=== PATIENT | male | born 1955 | race African-American/Black ===

== ENCOUNTER 2016-05-25 11:59 | Emergency (ER) | payer MEDICARE, MEDICAID ==
[~2016-05-25] VITALS: Ht 172.7 cm; Wt 88.0 kg
[~2016-05-25 11:59] MED LIST: APIX5TAB PO; ATOR10TA69 PO; Aspirin PO; BRIM5DRO BOTHEYE; DORZ10DR12 BOTHEYE; METF-240 PO; TRAV2.5D BOTHEYE
[2016-05-25] MEDS ORDERED: MORPHINE SULFATE 4 MG/ML CPJ (NOT FOR IM USE) IV ONE (12:30)
[2016-05-25 13:03] LABS: BASOPHILS % 0.7 % (0.0-2.0); EOSINOPHILS % 3.7 % (0.0-5.0); HEMOGLOBIN. 12.1 g/dL (14.0-18.0); LYMPHOCYTES % 23.3 % (20.0-50.0); MEAN CORPUSCULAR HEMOGLOBIN 25.9 pg (28.0-32.0); MEAN CORPUSCULAR HGB CONC 31.9 g/dL (31.0-37.0); MEAN CORPUSCULAR VOLUME 81.3 fL (80.0-94.0); MEAN PLATELET VOLUME 9.7 fl (7.4-10.4); MONOCYTES % 8.7 % (2.0-8.0); NEUTROPHILS % 63.6 % (40.0-76.0); PLATELET 185 x1000/uL (130-400); RED BLOOD CELL COUNT 4.68 mill/uL (4.7-6.1); RED CELL DISTRIBUTION WIDTH 18.4 % (11.6-14.6); WHITE BLOOD COUNT 6.5 x1000/uL (4.5-11.0)
[2016-05-25 13:10] LABS: ALBUMIN 3.5 g/dL (3.4-5.0); ANION GAP 13; CARBON DIOXIDE 24 mEq/L (21-32); CHLORIDE 108 mEq/L (98-107); INDEX HEMOLYSI 1 (1-3); INDEX ICTERIC 1 (1-4); INDEX LIPEMIC 1 (1-3); INR 1.1; PARTIAL THROMBOPLASTIN TIME 26.8 sec (24.0-34.0); PROTHROMBIN TIME 11.7 sec; UREA NITROGEN BLOOD 15 mg/dL (7-21)
[2016-05-25 13:16] LABS: ALANINE AMINOTRANSFERASE 18 IU/L (13-61); NT PRO B-TYPE NATRIURETIC PEP 51 pg/mL (5-125); TROPONIN I < 0.02 ng/mL (0.00-0.04); eGFR > 60 mL/min (>60)
[2016-05-25 14:00] VITALS: BP 126/73
== END 2016-05-25 16:15 | disposition left against medical advice (07) ==
LOC: ER 13:39
DX: R07.89 Other chest pain (principal); R06.02 Shortness of breath; E78.00 Pure hypercholesterolemia, unspecified; E11.9 Type 2 diabetes mellitus without complications; Z86.711 Personal history of pulmonary embolism; Z79.01 Long term (current) use of anticoagulants; Z79.82 Long term (current) use of aspirin; Z88.6 Allergy status to analgesic agent; Z91.041 Radiographic dye allergy status; Z91.013 Allergy to seafood
CPT/HCPCS: 36415; 71010; 80053; 83880; 84484; 85025; 85610; 85730; 93005; 96374; 99285; J2270

== ENCOUNTER 2016-06-23 01:26 | Emergency (ER) | payer MEDICARE, MEDICAID ==
[~2016-06-23] VITALS: Ht 172.7 cm; Wt 87.0 kg
[~2016-06-23 01:26] MED LIST changes: -METF-240 PO; +METF500T4 PO
[2016-06-23] MEDS ORDERED: MORPHINE SULFATE 4 MG/ML CPJ (NOT FOR IM USE) IV STA (02:07)
[2016-06-23] MEDS ORDERED: ONDANSETRON HCL 4MG/2ML VIAL IV STA (02:07)
[2016-06-23 02:26] LABS: BASOPHILS % 0.8 % (0.0-2.0); DIFFERENTIAL COMMENT 0; EOSINOPHILS % 3.5 % (0.0-5.0); HEMATOCRIT. 35.6 % (42.0-52.0); HEMOGLOBIN. 11.2 g/dL (14.0-18.0); LYMPHOCYTES % 22.1 % (20.0-50.0); MEAN CORPUSCULAR HGB CONC 31.5 g/dL (31.0-37.0); MEAN CORPUSCULAR VOLUME 79.3 fL (80.0-94.0); MEAN PLATELET VOLUME 9.2 fl (7.4-10.4); MONOCYTES % 8.8 % (2.0-8.0); NEUTROPHILS % 64.8 % (40.0-76.0); PLATELET 191 x1000/uL (130-400); RED BLOOD CELL COUNT 4.48 mill/uL (4.7-6.1); RED CELL DISTRIBUTION WIDTH 17.5 % (11.6-14.6)
[2016-06-23 02:33] LABS: D-DIMER 0.33 mg/L FEU (<0.50); INR 1.1; PROTHROMBIN TIME 11.2 sec
[2016-06-23 02:39] LABS: ALANINE AMINOTRANSFERASE 17 IU/L (13-61); ALBUMIN 3.6 g/dL (3.4-5.0); ANION GAP 16; CALCIUM 8.8 mg/dL (8.5-10.1); CARBON DIOXIDE 24 mEq/L (21-32); CHLORIDE 107 mEq/L (98-107); INDEX HEMOLYSI 1 (1-3); INDEX ICTERIC 1 (1-4); INDEX LIPEMIC 1 (1-3); NT PRO B-TYPE NATRIURETIC PEP 206 pg/mL (5-125); TROPONIN I < 0.02 ng/mL (0.00-0.04); UREA NITROGEN BLOOD 16 mg/dL (7-21); eGFR > 60 mL/min (>60)
[2016-06-23 06:32] VITALS: BP 127/82
== END 2016-06-24 07:16 | disposition home or self-care (01) ==
LOC: ER 08:23
DX: R07.89 Other chest pain (principal); E11.9 Type 2 diabetes mellitus without complications; Z91.041 Radiographic dye allergy status; Z91.013 Allergy to seafood; Z86.711 Personal history of pulmonary embolism
CPT/HCPCS: 36415; 71010; 78582; 80053; 83880; 84484; 85025; 85379; 85610; 93005; 96374; 96375; 99291; A9540; A9558; J2270; J2405

== ENCOUNTER 2016-07-31 17:52 | Emergency (ER) | payer MEDICARE, MEDICAID ==
[~2016-07-31] VITALS: Ht 170.2 cm; Wt 75.0 kg
[2016-07-31 18:58] LABS: BASOPHILS % 0.5 % (0.0-2.0); DIFFERENTIAL COMMENT 0; EOSINOPHILS % 2.7 % (0.0-5.0); HEMATOCRIT. 34.4 % (42.0-52.0); LYMPHOCYTES % 20.4 % (20.0-50.0); MEAN CORPUSCULAR HEMOGLOBIN 25.3 pg (28.0-32.0); MEAN CORPUSCULAR HGB CONC 31.9 g/dL (31.0-37.0); MEAN CORPUSCULAR VOLUME 79.1 fL (80.0-94.0); MEAN PLATELET VOLUME 9.7 fl (7.4-10.4); MONOCYTES % 10.9 % (2.0-8.0); NEUTROPHILS % 65.5 % (40.0-76.0); PLATELET 154 x1000/uL (130-400); RED BLOOD CELL COUNT 4.35 mill/uL (4.7-6.1); RED CELL DISTRIBUTION WIDTH 17.7 % (11.6-14.6); WHITE BLOOD COUNT 6.3 x1000/uL (4.5-11.0)
[2016-07-31 19:05] LABS: CHLORIDE 111 mEq/L (98-107); INDEX HEMOLYSI 1 (1-3); INDEX ICTERIC 1 (1-4); INDEX LIPEMIC 1 (1-3)
[2016-07-31 19:06] LABS: ALBUMIN 3.2 g/dL (3.4-5.0); ANION GAP 11; CALCIUM 8.4 mg/dL (8.5-10.1); CARBON DIOXIDE 24 mEq/L (21-32); LIPASE 52 IU/L (73-393); UREA NITROGEN BLOOD 14 mg/dL (7-21)
[2016-07-31 19:08] LABS: D-DIMER 0.29 mg/L FEU (<0.50); INR 1.1; PARTIAL THROMBOPLASTIN TIME 31.7 sec (24.0-34.0); PROTHROMBIN TIME 11.4 sec
[2016-07-31 19:10] LABS: ALANINE AMINOTRANSFERASE 15 IU/L (13-61); ETHANOL BLOOD < 10 mg/dL; eGFR > 60 mL/min (>60)
[2016-07-31] MEDS: MORPHINE SULFATE 4 MG/ML CPJ (NOT FOR IM USE) IV STA (19:10)
[2016-07-31] MEDS: ONDANSETRON HCL 4MG/2ML VIAL IV STA (19:10)
[2016-07-31] MEDS: ASPIRIN 81MG TABLET PO ONE (19:11)
[2016-07-31] MEDS: NITROGLYCERIN OINT 1GM/INCH UDPKT TD ONE (19:12)
[2016-07-31 19:14] LABS: NT PRO B-TYPE NATRIURETIC PEP 65 pg/mL (5-125); TROPONIN I < 0.02 ng/mL (0.00-0.04)
[2016-07-31 23:30] VITALS: BP 109/68
== END 2016-08-01 00:16 | disposition home or self-care (01) ==
LOC: ER 17:52
DX: R07.9 Chest pain, unspecified (principal); H40.9 Unspecified glaucoma; E11.9 Type 2 diabetes mellitus without complications; Z79.01 Long term (current) use of anticoagulants; Z86.711 Personal history of pulmonary embolism; Z91.013 Allergy to seafood; Z88.8 Allergy status to other drugs, medicaments and biological substances
CPT/HCPCS: 36415; 71010; 80053; 83605; 83690; 83880; 84484; 85025; 85379; 85610; 85730; 93005; 96374; 96375; 99285; G0482; J2270; J2405

== ENCOUNTER 2016-09-01 22:21 | Emergency (ER) | payer MEDICARE, MEDICAID ==
[~2016-09-01] VITALS: Ht 172.7 cm; Wt 87.0 kg
[2016-09-01] MEDS ORDERED: MORPHINE SULFATE 4 MG/ML CPJ (NOT FOR IM USE) IV STA (23:10)
[2016-09-01] MEDS ORDERED: ONDANSETRON HCL 4MG/2ML VIAL IV STA (23:10)
[2016-09-01] MEDS ORDERED: NITROGLYCERIN OINT 1GM/INCH UDPKT TD ONE (23:15)
[2016-09-01] MEDS ORDERED: ASPIRIN 81MG TABLET PO ONE (23:15)
[2016-09-01 23:27] LABS: BASOPHILS % 0.5 % (0.0-2.0); EOSINOPHILS % 2.3 % (0.0-5.0); HEMATOCRIT. 35.7 % (42.0-52.0); HEMOGLOBIN. 11.6 g/dL (14.0-18.0); LYMPHOCYTES % 23.5 % (20.0-50.0); MEAN CORPUSCULAR HEMOGLOBIN 25.4 pg (28.0-32.0); MEAN CORPUSCULAR VOLUME 77.9 fL (80.0-94.0); MEAN PLATELET VOLUME 10.1 fl (7.4-10.4); MONOCYTES % 11.4 % (2.0-8.0); NEUTROPHILS % 62.3 % (40.0-76.0); PLATELET 203 x1000/uL (130-400); RED BLOOD CELL COUNT 4.58 mill/uL (4.7-6.1); RED CELL DISTRIBUTION WIDTH 17.7 % (11.6-14.6)
[2016-09-01 23:36] LABS: D-DIMER 0.21 mg/L FEU (<0.50); INR 1.1; PARTIAL THROMBOPLASTIN TIME 31.1 sec (24.0-34.0); PROTHROMBIN TIME 11.4 sec
[2016-09-01 23:45] LABS: CARBON DIOXIDE 24 mEq/L (21-32); CHLORIDE 109 mEq/L (98-107); ETHANOL BLOOD < 10 mg/dL; TROPONIN I < 0.02 ng/mL (0.00-0.04)
[2016-09-02 00:15] VITALS: BP 116/82
[2016-10-20] MEDS ORDERED: TAMS0.4C31 PO (21:58)
[2017-02-28] MEDS ORDERED: FINA5TAB11 PO (10:10)
== END 2016-09-02 00:18 | disposition home or self-care (01) ==
LOC: ER 22:21 → CANBEDREQ 09-02 00:26
DX: R07.2 Precordial pain (principal); R06.02 Shortness of breath; E11.9 Type 2 diabetes mellitus without complications; H40.9 Unspecified glaucoma; E78.00 Pure hypercholesterolemia, unspecified; I25.2 Old myocardial infarction; Z86.711 Personal history of pulmonary embolism; Z79.01 Long term (current) use of anticoagulants; Z91.041 Radiographic dye allergy status; Z91.09 Other allergy status, other than to drugs and biological substances; Z79.899 Other long term (current) drug therapy; Z91.013 Allergy to seafood; Z91.018 Allergy to other foods
CPT/HCPCS: 36415; 71010; 80053; 83690; 83880; 84484; 85025; 85379; 85610; 85730; 93005; 96374; 96375; 99285; G0482; J2270; J2405

== ENCOUNTER 2016-10-16 13:19 | Emergency (ER) | payer MEDICARE, MEDICAID ==
[~2016-10-16] VITALS: Ht 172.7 cm; Wt 86.0 kg
[2016-10-16 15:21] LABS: BASOPHILS % 0.5 % (0.0-2.0); EOSINOPHILS % 2.1 % (0.0-5.0); HEMATOCRIT. 36.4 % (42.0-52.0); HEMOGLOBIN. 11.6 g/dL (14.0-18.0); MEAN CORPUSCULAR VOLUME 81.9 fL (80.0-94.0); MEAN PLATELET VOLUME 9.5 fl (7.4-10.4); MONOCYTES % 9.7 % (2.0-8.0); NEUTROPHILS % 70.7 % (40.0-76.0); PLATELET 157 x1000/uL (130-400); RED BLOOD CELL COUNT 4.45 mill/uL (4.7-6.1); RED CELL DISTRIBUTION WIDTH 19.8 % (11.6-14.6)
[2016-10-16 15:24] LABS: CARBON DIOXIDE 26 mEq/L (21-32); CHLORIDE 109 mEq/L (98-107)
[2016-10-16 15:29] LABS: ETHANOL BLOOD < 10 mg/dL
[2016-10-16 15:32] LABS: TROPONIN I < 0.02 ng/mL (0.00-0.04)
[2016-10-16 15:36] LABS: D-DIMER < 0.19 mg/L FEU (<0.50); INR 1.1; PROTHROMBIN TIME 11.6 sec
[2016-10-16 19:06] VITALS: BP 116/67
== END 2016-10-16 20:03 | disposition home or self-care (01) ==
LOC: ER 13:19
DX: R07.9 Chest pain, unspecified (principal); E11.9 Type 2 diabetes mellitus without complications; E78.00 Pure hypercholesterolemia, unspecified; H40.9 Unspecified glaucoma; Z79.01 Long term (current) use of anticoagulants; Z91.041 Radiographic dye allergy status; Z91.013 Allergy to seafood; Z91.018 Allergy to other foods
CPT/HCPCS: 36415; 71010; 80053; 83880; 84484; 85025; 85379; 85610; 93005; 99285; G0482

== ENCOUNTER 2016-11-20 21:12 | Emergency (ER) | payer MEDICARE, MEDICAID ==
[~2016-11-20] VITALS: Ht 172.7 cm; Wt 86.0 kg
[~2016-11-20 21:12] MED LIST changes: +TAMS0.4C31 PO
[2016-11-21 01:01] LABS: BASOPHILS % 0.4 % (0.0-2.0); EOSINOPHILS % 2.5 % (0.0-5.0); HEMATOCRIT. 42.3 % (42.0-52.0); HEMOGLOBIN. 13.8 g/dL (14.0-18.0); LYMPHOCYTES % 22.8 % (20.0-50.0); MEAN CORPUSCULAR HEMOGLOBIN 27.1 pg (28.0-32.0); MEAN PLATELET VOLUME 9.6 fl (7.4-10.4); MONOCYTES % 9.2 % (2.0-8.0); NEUTROPHILS % 65.1 % (40.0-76.0); PLATELET 152 x1000/uL (130-400); RED CELL DISTRIBUTION WIDTH 20.2 % (11.6-14.6)
[2016-11-21 01:11] LABS: CARBON DIOXIDE 26 mEq/L (21-32); CHLORIDE 105 mEq/L (98-107); TROPONIN I < 0.02 ng/mL (0.00-0.04)
[2016-11-21] MEDS ORDERED: HYDROCODONE/ACETAMINOPHEN 10/325MG TABLET PO ONE (01:15)
[2016-11-21 02:33] VITALS: BP 144/79
== END 2016-11-21 03:15 | disposition home or self-care (01) ==
LOC: ER 21:12
DX: R07.9 Chest pain, unspecified (principal); E11.9 Type 2 diabetes mellitus without complications; H40.9 Unspecified glaucoma; Z79.01 Long term (current) use of anticoagulants; Z91.013 Allergy to seafood; Z91.048 Other nonmedicinal substance allergy status; Z88.8 Allergy status to other drugs, medicaments and biological substances; Z91.018 Allergy to other foods
CPT/HCPCS: 36415; 71010; 80048; 84484; 85025; 93005; 93971; 99285

== ENCOUNTER 2017-07-04 23:14 | Emergency (ER) | payer MEDICARE, MEDICAID ==
[~2017-07-04] VITALS: Ht 172.7 cm; Wt 87.0 kg
[~2017-07-04 23:14] MED LIST changes: -Aspirin PO; +FINA5TAB11 PO
[2017-07-04] MEDS ORDERED: ASPIRIN 81MG TABLET PO ONE (23:30)
[2017-07-04] MEDS ORDERED: NITROGLYCERIN OINT 1GM/INCH UDPKT TD ONE (23:30)
[2017-07-05 00:08] LABS: BASOPHILS % 0.8 % (0.0-2.0); EOSINOPHILS % 2.3 % (0.0-5.0); LYMPHOCYTES % 18.6 % (20.0-50.0); MEAN CORPUSCULAR HEMOGLOBIN 28.9 pg (28.0-32.0); MEAN CORPUSCULAR VOLUME 86.6 fL (80.0-94.0); MEAN PLATELET VOLUME 9.9 fl (7.4-10.4); MONOCYTES % 11.5 % (2.0-8.0); NEUTROPHILS % 66.8 % (40.0-76.0); PLATELET 177 x1000/uL (130-400); RED BLOOD CELL COUNT 4.51 mill/uL (4.7-6.1); RED CELL DISTRIBUTION WIDTH 14.9 % (11.6-14.6)
[2017-07-05 00:10] LABS: CHLORIDE 107 mEq/L (98-107)
[2017-07-05 00:14] LABS: ETHANOL BLOOD < 10 mg/dL
[2017-07-05 00:16] LABS: D-DIMER 0.29 mg/L FEU (<0.50); INR 1.1; PROTHROMBIN TIME 11.4 sec (9.4-11.6)
[2017-07-05 01:37] VITALS: BP 111/71
[2017-07-05 01:46] LABS: *AMPHETAMINES SCREEN URINE NEGATIVE (NEGATIVE); *BARBITURATES SCREEN URINE NEGATIVE (NEGATIVE); *BENZODIAZEPINES SCREEN URINE NEGATIVE (NEGATIVE)
[2017-07-05 01:47] LABS: *COCAINE SCREEN URINE NEGATIVE (NEGATIVE); CANNABINOID URINE SCREEN NEGATIVE (NEGATIVE); METHADONE URINE SCREEN NEGATIVE (NEGATIVE); OPIATES URINE SCREEN PRESUMTIVE POSITIVE (NEGATIVE); PHENCYCLIDINE URINE SCREEN NEGATIVE (NEGATIVE)
== END 2017-07-05 01:38 | disposition home or self-care (01) ==
LOC: ER 23:14
DX: R07.9 Chest pain, unspecified (principal); E11.9 Type 2 diabetes mellitus without complications; E78.00 Pure hypercholesterolemia, unspecified; R06.02 Shortness of breath; H40.9 Unspecified glaucoma; Z88.5 Allergy status to narcotic agent; Z91.013 Allergy to seafood; Z79.899 Other long term (current) drug therapy; Z91.048 Other nonmedicinal substance allergy status
CPT/HCPCS: 36415; 71045; 80053; 80305; 83690; 83880; 84484; 85025; 85379; 85610; 93005; 99285; G0482

== ENCOUNTER 2017-08-12 21:30 | Emergency (ER) | payer MEDICARE, MEDICAID ==
[~2017-08-12] VITALS: Ht 172.7 cm; Wt 87.0 kg
[~2017-08-12 21:30] MED LIST changes: +ASPI-1158 PO; -METF500T4 PO; +METF500T6 PO
[2017-08-12] MEDS ORDERED: ACETAMINOPHEN 325MG TABLET PO STA (23:31)
[2017-08-12] MEDS ORDERED: NITROGLYCERIN OINT 1GM/INCH UDPKT TD ONE (23:45)
[2017-08-12] MEDS ORDERED: ASPIRIN 81MG TABLET PO ONE (23:45)
[2017-08-13 03:22] VITALS: BP 123/75
== END 2017-08-13 07:01 | disposition home or self-care (01) ==
LOC: ER 21:30
DX: R07.89 Other chest pain (principal); E11.9 Type 2 diabetes mellitus without complications; E78.00 Pure hypercholesterolemia, unspecified; H40.9 Unspecified glaucoma; Z79.82 Long term (current) use of aspirin; Z88.5 Allergy status to narcotic agent; Z91.041 Radiographic dye allergy status; Z79.899 Other long term (current) drug therapy
CPT/HCPCS: 71045; 93005; 99284

== ENCOUNTER 2017-09-30 21:17 | Emergency (ER) | payer OTHER, MEDICAID ==
[~2017-09-30] VITALS: Ht 172.7 cm; Wt 86.5 kg
[2017-09-30] MEDS ORDERED: ASPIRIN 81MG TABLET PO ONE (21:45)
[2017-09-30 22:51] LABS: BASOPHILS % 0.7 % (0.0-2.0); EOSINOPHILS % 2.2 % (0.0-5.0); HEMATOCRIT. 37.6 % (42.0-52.0); HEMOGLOBIN. 12.3 g/dL (14.0-18.0); MEAN CORPUSCULAR HEMOGLOBIN 27.5 pg (28.0-32.0); MEAN CORPUSCULAR VOLUME 83.9 fL (80.0-94.0); MEAN PLATELET VOLUME 9.8 fl (7.4-10.4); MONOCYTES % 11.5 % (2.0-8.0); NEUTROPHILS % 64.6 % (40.0-76.0); PLATELET 177 x1000/uL (130-400); RED BLOOD CELL COUNT 4.48 mill/uL (4.7-6.1); RED CELL DISTRIBUTION WIDTH 15.5 % (11.6-14.6)
[2017-09-30 22:56] LABS: CHLORIDE 110 mEq/L (98-107)
[2017-09-30 22:59] LABS: PROTHROMBIN TIME 10.4 sec (9.4-11.6)
[2017-10-01] MEDS ORDERED: NITROGLYCERIN OINT 1GM/INCH UDPKT TD ONE
[2017-10-01] MEDS: NITROGLYCERIN 0.4MG TABLET SL SL PRN ×3 (00:14→00:34)
[2017-10-01] MEDS ORDERED: FENTANYL CITRATE/PF 50MCG/ML 2ML VIAL IV ONE (01:00)
[2017-10-01 02:31] VITALS: BP 112/62
== END 2017-10-01 02:33 | disposition home or self-care (01) ==
LOC: ER 21:17 → CANBEDREQ 10-01 04:01
DX: R07.89 Other chest pain (principal); I11.9 Hypertensive heart disease without heart failure; E78.00 Pure hypercholesterolemia, unspecified; E11.9 Type 2 diabetes mellitus without complications; I25.10 Atherosclerotic heart disease of native coronary artery without angina pectoris; H40.9 Unspecified glaucoma; I25.2 Old myocardial infarction; D64.9 Anemia, unspecified; Z86.711 Personal history of pulmonary embolism; Z86.718 Personal history of other venous thrombosis and embolism; Z79.01 Long term (current) use of anticoagulants; Z91.041 Radiographic dye allergy status; Z91.013 Allergy to seafood; Z91.018 Allergy to other foods; Z79.82 Long term (current) use of aspirin; Z98.890 Other specified postprocedural states
CPT/HCPCS: 36415; 71045; 80053; 83880; 84484; 85025; 85610; 93005; 96374; 99285; J3010

== ENCOUNTER 2018-02-24 19:53 | Inpatient (IN) | payer MEDICARE, MEDICAID ==
[~2018-02-24] VITALS: Ht 172.7 cm; Wt 88.9 kg
[~2018-02-24 19:53] MED LIST changes: +METF-414 PO; -METF500T6 PO
[2018-02-24] MEDS ORDERED: ASPIRIN 81MG TABLET PO ONE (21:00)
[2018-02-24 21:38] LABS: CHLORIDE 106 mEq/L (98-107)
[2018-02-24 21:39] LABS: BASOPHILS % 0.5 % (0.0-2.0); EOSINOPHILS % 1.4 % (0.0-5.0); HEMATOCRIT. 42.9 % (42.0-52.0); HEMOGLOBIN. 14.1 g/dL (14.0-18.0); LYMPHOCYTES % 11.2 % (20.0-50.0); MEAN CORPUSCULAR HEMOGLOBIN 28.1 pg (28.0-32.0); MEAN CORPUSCULAR VOLUME 85.4 fL (80.0-94.0); MEAN PLATELET VOLUME 9.4 fl (7.4-10.4); NEUTROPHILS % 77.9 % (40.0-76.0); PLATELET 166 x1000/uL (130-400); RED BLOOD CELL COUNT 5.02 mill/uL (4.7-6.1); RED CELL DISTRIBUTION WIDTH 18.3 % (11.6-14.6)
[2018-02-24 21:40] LABS: INR 1.1; PARTIAL THROMBOPLASTIN TIME 28.2 sec (23.4-31.0); PROTHROMBIN TIME 10.6 sec (9.1-11.1)
[2018-02-24 21:57] LABS: CLARITY URINE CLEAR (CLEAR); COLOR URINE YELLOW (YELLOW); KETONES URINE TRACE (NEGATIVE); LEUKOCYTE ESTERASE URINE 1+ (NEGATIVE); NITRITE URINE NEGATIVE (NEGATIVE); OCCULT BLOOD URINE NEGATIVE (NEGATIVE); PH URINE 5.5 (4.5-8.0); PROTEIN URINE NEGATIVE (NEGATIVE); SPECIFIC GRAVITY URINE 1.021 (1.005-1.030); UROBILINOGEN URINE 0.2 E.U./dL (0.2-1.0)
[2018-02-24] MEDS ORDERED: NITROGLYCERIN 0.4MG TABLET SL SL ONE (22:00)
[2018-02-24 22:15] LABS: *BARBITURATES SCREEN URINE NEGATIVE (NEGATIVE); *BENZODIAZEPINES SCREEN URINE NEGATIVE (NEGATIVE); *COCAINE SCREEN URINE NEGATIVE (NEGATIVE)
[2018-02-24 22:16] LABS: *AMPHETAMINES SCREEN URINE NEGATIVE (NEGATIVE); CANNABINOID URINE SCREEN NEGATIVE (NEGATIVE); METHADONE URINE SCREEN NEGATIVE (NEGATIVE); OPIATES URINE SCREEN PRESUMTIVE POSITIVE (NEGATIVE); PHENCYCLIDINE URINE SCREEN NEGATIVE (NEGATIVE)
[2018-02-25] MEDS ORDERED: MORPHINE SULFATE 4 MG/ML CPJ (NOT FOR IM USE) IV ONE (01:15)
[2018-02-25] MEDS ORDERED: MORPHINE SULFATE 10 MG/ML CPJ IV NR (01:15)
[2018-02-25] MEDS ORDERED: ENOXAPARIN 80MG/0.8ML SYR SUBCUT ONE (01:15)
[2018-02-25 02:15] VITALS: BP 135/81
[2018-02-25 02:16] VITALS: BP 135/81
[2018-02-25] MEDS ORDERED: ACETAMINOPHEN 325MG TABLET PO PRN (03:15)
[2018-02-25] MEDS ORDERED: CEFTRIAXONE 1 G PREMIX 50 ML IV SCH (03:15)
[2018-02-25] MEDS ORDERED: CLONIDINE 0.1MG TABLET PO PRN (03:15)
[2018-02-25] MEDS ORDERED: HYDROCODONE/APAP 7.5/325MG 1 TAB TABLET PO PRN (03:15)
[2018-02-25] MEDS ORDERED: IPRATROPIUM/ALBUTEROL 0.5-3(2.5)MG/3ML NEB INH PRN (03:15)
[2018-02-25] MEDS ORDERED: ONDANSETRON HCL 4MG/2ML INJ IV PRN (03:15)
[2018-02-25 04:00] VITALS: BP 129/78
[2018-02-25] MEDS: SODIUM CHLORIDE 0.9% 1,000 ML IV SCH (04:00)
[2018-02-25] MEDS: CEFTRIAXONE 1 G PREMIX 50 ML IV SCH (05:38)
[2018-02-25] MEDS: ASPIRIN 81MG EC TABLET PO SCH (10:01)
[2018-02-25] MEDS: ENOXAPARIN 40MG/0.4ML SYR SUBCUT SCH (10:03)
[2018-02-25 12:00] VITALS: BP 117/75
[2018-02-25] MEDS: DOCUSATE SODIUM 100MG CAPSULE PO PRN ×2 (15:57→20:12)
[2018-02-25] MEDS: HYDROMORPHONE HCL/PF 2MG/ML CPJ IV PRN ×2 (15:58→19:39)
[2018-02-25 16:00] VITALS: BP 119/70
[2018-02-25 20:00] VITALS: BP 104/66
[2018-02-26] VITALS (7 sets, daily range): BP systolic 103–125; BP diastolic 61–74
[2018-02-26] MEDS: HYDROMORPHONE HCL/PF 2MG/ML CPJ IV PRN ×3 (01:57→22:11)
[2018-02-26] MEDS: CEFTRIAXONE 1 G PREMIX 50 ML IV SCH (06:02)
[2018-02-26 06:33] LABS: BASOPHILS % 0.6 % (0.0-2.0); EOSINOPHILS % 3.1 % (0.0-5.0); HEMATOCRIT. 41.5 % (42.0-52.0); HEMOGLOBIN. 13.8 g/dL (14.0-18.0); LYMPHOCYTES % 20.6 % (20.0-50.0); MEAN CORPUSCULAR HEMOGLOBIN 28.6 pg (28.0-32.0); MEAN CORPUSCULAR VOLUME 85.7 fL (80.0-94.0); MEAN PLATELET VOLUME 9.8 fl (7.4-10.4); MONOCYTES % 10.4 % (2.0-8.0); NEUTROPHILS % 65.3 % (40.0-76.0); PLATELET 152 x1000/uL (130-400); RED BLOOD CELL COUNT 4.84 mill/uL (4.7-6.1); RED CELL DISTRIBUTION WIDTH 17.8 % (11.6-14.6)
[2018-02-26 06:50] LABS: CHLORIDE 107 mEq/L (98-107)
[2018-02-26 07:10] LABS: PHOSPHORUS 3.5 mg/dL (2.5-4.9)
[2018-02-26] MEDS: ASPIRIN 81MG EC TABLET PO SCH (08:57)
[2018-02-26] MEDS: ENOXAPARIN 40MG/0.4ML SYR SUBCUT SCH (08:57)
[2018-02-26] MEDS: SODIUM CHLORIDE 0.9% 1,000 ML IV SCH (16:37)
[2018-02-26] MEDS ORDERED: BRIMONIDINE 0.2% OPHTH DROPS 5ML BOTHEYE SCH (21:00)
[2018-02-26] MEDS ORDERED: DORZOLAM/TIMOLOL 2.23/0.68% OPHTH DROPS 10ML BOTHEYE SCH (21:00)
[2018-02-26] MEDS ORDERED: TIMOLOL MALEATE 0.5% OPHTH DROPS 5ML EACHEYE SCH (21:00)
[2018-02-26] MEDS ORDERED: DORZOLAMIDE 2% OPHTH 10 ML BOTTLE BOTHEYE SCH (21:00)
[2018-02-26] MEDS: DOCUSATE SODIUM 100MG CAPSULE PO PRN (22:24)
[2018-02-26] MEDS ORDERED: NON FORMULARY PATIENT HOME MED XX SCH (23:15)
[2018-02-27 02:47] VITALS: BP 110/61
[2018-02-27] MEDS: HYDROMORPHONE HCL/PF 2MG/ML CPJ IV PRN (02:56)
[2018-02-27] MEDS: CEFTRIAXONE 1 G PREMIX 50 ML IV SCH (06:19)
[2018-02-27] MEDS: SODIUM CHLORIDE 0.9% 1,000 ML IV SCH (07:07)
[2018-02-27 08:00] VITALS: BP 115/56
[2018-02-27 11:20] VITALS: BP 115/56
[2018-02-27] MEDS ORDERED: LATANOPROST 0.005% OPHTH DROPS 2.5ML BOTHEYE SCH ×2 (21:00)
[2018-02-27] MEDS ORDERED: TRAVATAN 0.004% BOTHEYE SCH (21:00)
== END 2018-02-27 13:27 | disposition home or self-care (01) | DRG 313 ==
LOC: ER 19:53 → 7WST 22:58 → EDBEDREQ 23:00 → ENRESERV 02-25 01:15
PROVIDERS: ADMIT Family Medicine Adult Medicine; ATTEND Family Medicine Adult Medicine
PROC: 02HV33Z Insertion of Infusion Device into Superior Vena Cava, Percutaneous Approach (ICD-10-PCS; 2018-02-25)
PROC: B5181ZA Fluoroscopy of Superior Vena Cava using Low Osmolar Contrast, Guidance (ICD-10-PCS; 2018-02-25)
PROC: B548ZZA Ultrasonography of Superior Vena Cava, Guidance (ICD-10-PCS; 2018-02-25)
PROC: 4B02XSZ Measurement of Cardiac Pacemaker, External Approach (ICD-10-PCS; principal; 2018-02-26)
DX: R07.89 Other chest pain (principal); N39.0 Urinary tract infection, site not specified; E11.9 Type 2 diabetes mellitus without complications; I49.5 Sick sinus syndrome; E78.00 Pure hypercholesterolemia, unspecified; H40.9 Unspecified glaucoma; I11.9 Hypertensive heart disease without heart failure; R79.1 Abnormal coagulation profile; R06.02 Shortness of breath; I25.10 Atherosclerotic heart disease of native coronary artery without angina pectoris; N40.0 Benign prostatic hyperplasia without lower urinary tract symptoms; I25.2 Old myocardial infarction; Z79.01 Long term (current) use of anticoagulants; Z82.49 Family history of ischemic heart disease and other diseases of the circulatory system; Z95.0 Presence of cardiac pacemaker; Z91.041 Radiographic dye allergy status; Z86.718 Personal history of other venous thrombosis and embolism; Z86.711 Personal history of pulmonary embolism; Z91.013 Allergy to seafood; Z91.018 Allergy to other foods; Z79.82 Long term (current) use of aspirin; Z79.84 Long term (current) use of oral hypoglycemic drugs; Z79.899 Other long term (current) drug therapy
CPT/HCPCS: 36415; 36569; 71045; 76937; 77001; 78582; 80048; 80305; 83735; 83880; 84100; 84484; 85379; 93005; 96372; 96374; 99285; A9558; C1725; C1893; J0696; J1170; J1650; J2270; J7030

== ENCOUNTER 2018-03-20 13:21 | Inpatient (IN) | payer MEDICARE, MEDICAID ==
[~2018-03-20] VITALS: Ht 172.7 cm; Wt 89.4 kg
[2018-03-20] MEDS ORDERED: NITROGLYCERIN 0.4MG TABLET SL SL PRN (14:15)
[2018-03-20] MEDS ORDERED: ASPIRIN 81MG TABLET PO ONE (14:15)
[2018-03-20 15:22] LABS: BASOPHILS % 0.5 % (0.0-2.0); EOSINOPHILS % 2.3 % (0.0-5.0); HEMATOCRIT. 40.9 % (42.0-52.0); HEMOGLOBIN. 13.6 g/dL (14.0-18.0); LYMPHOCYTES % 15.9 % (20.0-50.0); MEAN CORPUSCULAR HEMOGLOBIN 28.4 pg (28.0-32.0); MEAN CORPUSCULAR VOLUME 85.8 fL (80.0-94.0); MEAN PLATELET VOLUME 9.9 fl (7.4-10.4); MONOCYTES % 11.7 % (2.0-8.0); NEUTROPHILS % 69.6 % (40.0-76.0); PLATELET 164 x1000/uL (130-400); RED BLOOD CELL COUNT 4.77 mill/uL (4.7-6.1); RED CELL DISTRIBUTION WIDTH 18.4 % (11.6-14.6)
[2018-03-20 15:29] LABS: CHLORIDE 109 mEq/L (98-107); PARTIAL THROMBOPLASTIN TIME 27.9 sec (23.4-31.0); PROTHROMBIN TIME 10.5 sec (9.1-11.1)
[2018-03-20] MEDS ORDERED: ONDANSETRON HCL 4MG/2ML INJ IV ONE (16:15)
[2018-03-20] MEDS ORDERED: MORPHINE SULFATE 4 MG/ML CPJ (NOT FOR IM USE) IV ONE (16:15)
[2018-03-20] MEDS ORDERED: HYDRALAZINE 20MG/ML VIAL IV PRN (18:00)
[2018-03-20] MEDS ORDERED: HYDROCODONE/ACETAMINOPHEN 10/325MG TABLET PO PRN (18:00)
[2018-03-20] MEDS ORDERED: MAGNESIUM/ALUMINUM HYDROXIDE/SIMETHICONE 30ML UDC PO PRN (18:00)
[2018-03-20] MEDS ORDERED: ACETAMINOPHEN 325MG TABLET PO PRN (18:00)
[2018-03-20] MEDS ORDERED: DEXTROSE 50% WATER 50ML SYRINGE IV PRN (18:00)
[2018-03-20] MEDS ORDERED: CLONIDINE 0.1MG TABLET PO PRN (18:00)
[2018-03-20] MEDS ORDERED: GUAIFENESIN 200MG/10ML SUGAR FREE UDC PO PRN (18:00)
[2018-03-20] MEDS ORDERED: DOCUSATE SODIUM 100MG CAPSULE PO PRN (18:00)
[2018-03-20] MEDS ORDERED: IPRATROPIUM/ALBUTEROL 0.5-3(2.5)MG/3ML NEB INH PRN (18:00)
[2018-03-20] MEDS ORDERED: LORAZEPAM 2MG/ML CPJ IV PRN (18:00)
[2018-03-20] MEDS: INSULIN LISPRO 100 UNITS/ML SUBCUT SCH ×2 (21:00→21:18)
[2018-03-20] MEDS: APIXABAN 5 MG TABLET PO SCH (21:10)
[2018-03-20] MEDS: BLOOD SUGAR DIAGNOSTIC STRIP TEST SCH (21:18)
[2018-03-20] MEDS: SODIUM CHLORIDE 0.9% INJ 3ML FLUSH IVF SCH (22:37)
[2018-03-20] MEDS: HYDROMORPHONE HCL/PF 2MG/ML CPJ IV PRN (22:57)
[2018-03-20] MEDS: ONDANSETRON HCL 4MG/2ML INJ IV PRN (22:57)
[2018-03-20 23:00] VITALS: BP 117/84
[2018-03-20 23:31] VITALS: BP 111/69
[2018-03-21] VITALS: BP 120/64
[2018-03-21 01:29] LABS: CREATINE KINASE 197 IU/L (39-308); CREATINE KINASE MB FRACTION 2.6 ng/mL (0.5-3.6)
[2018-03-21 04:00] VITALS: BP 108/60
[2018-03-21 06:58] LABS: INR 1.1; PROTHROMBIN TIME 11.1 sec (9.1-11.1)
[2018-03-21 07:06] LABS: CHLORIDE 109 mEq/L (98-107)
[2018-03-21 07:18] LABS: BASOPHILS % 0.5 % (0.0-2.0); HEMOGLOBIN. 13.4 g/dL (14.0-18.0); LYMPHOCYTES % 13.6 % (20.0-50.0); MEAN CORPUSCULAR HEMOGLOBIN 28.8 pg (28.0-32.0); MEAN CORPUSCULAR VOLUME 86.1 fL (80.0-94.0); MEAN PLATELET VOLUME 9.8 fl (7.4-10.4); MONOCYTES % 12.9 % (2.0-8.0); PLATELET 141 x1000/uL (130-400); RED BLOOD CELL COUNT 4.64 mill/uL (4.7-6.1); RED CELL DISTRIBUTION WIDTH 17.6 % (11.6-14.6)
[2018-03-21] MEDS: BLOOD SUGAR DIAGNOSTIC STRIP TEST SCH ×4 (07:20→21:29)
[2018-03-21 07:32] LABS: CREATINE KINASE 183 IU/L (39-308); LDL CHOLESTEROL 93 mg/dL (5-100)
[2018-03-21 07:33] LABS: CREATINE KINASE MB FRACTION 2.4 ng/mL (0.5-3.6); HDL CHOLESTEROL 41 mg/dL (40-59)
[2018-03-21 07:34] LABS: T4 FREE 1.21 ng/dL (0.76-1.46)
[2018-03-21] MEDS: INSULIN LISPRO 100 UNITS/ML SUBCUT SCH ×4 (07:50→21:00)
[2018-03-21 08:00] VITALS: BP_SYST 105; BP_SYST 108; BP_DIAS 57; BP_DIAS 60
[2018-03-21] MEDS: APIXABAN 5 MG TABLET PO SCH ×2 (09:54→18:26)
[2018-03-21] MEDS: SODIUM CHLORIDE 0.9% INJ 3ML FLUSH IVF SCH ×3 (09:55→21:38)
[2018-03-21] MEDS ORDERED: MEDICATION NOT ON FORMULARY EA (Metformin Hcl 1 TAB) PO SCH (11:00)
[2018-03-21] MEDS ORDERED: MEDICATION NOT ON FORMULARY EA (Finasteride 5 MG) PO SCH (11:00)
[2018-03-21] MEDS ORDERED: TAMSULOSIN HCL 0.4MG SR CAPSULE PO SCH (11:00)
[2018-03-21] MEDS ORDERED: DORZOLAM/TIMOLOL 2.23/0.68% OPHTH DROPS 10ML BOTHEYE SCH (11:00)
[2018-03-21] MEDS ORDERED: MEDICATION NOT ON FORMULARY EA (Brimonidine Tartrate (Alphagan P) 1 DROP) BOTHEYE SCH (11:00)
[2018-03-21] MEDS: METFORMIN HCL 500MG TABLET PO SCH ×2 (11:31→18:26)
[2018-03-21] MEDS: FINASTERIDE 5MG TABLET PO SCH (11:31)
[2018-03-21 11:33] VITALS: BP 108/60
[2018-03-21] MEDS: ONDANSETRON HCL 4MG/2ML INJ IV PRN (11:40)
[2018-03-21] MEDS: HYDROMORPHONE HCL/PF 2MG/ML CPJ IV PRN ×2 (11:50→22:26)
[2018-03-21] MEDS: BRIMONIDINE 0.2% OPHTH DROPS 5ML BOTHEYE SCH ×2 (13:09→21:38)
[2018-03-21] MEDS: TIMOLOL MALEATE 0.5% OPHTH DROPS 5ML EACHEYE SCH ×2 (13:10→21:38)
[2018-03-21] MEDS: DORZOLAMIDE 2% OPHTH 10 ML BOTTLE BOTHEYE SCH ×2 (13:10→21:38)
[2018-03-21 15:28] VITALS: BP 112/57
[2018-03-21] MEDS ORDERED: MEDICATION NOT ON FORMULARY EA (Apixaban (Eliquis) 5 MG) PO SCH (17:00)
[2018-03-21] MEDS ORDERED: METFORMIN HCL 500MG TABLET PO SCH (17:50)
[2018-03-21 20:00] VITALS: BP 110/69
[2018-03-21] MEDS ORDERED: MEDICATION NOT ON FORMULARY EA (Travoprost (Travatan Z) 1 DROP) BOTHEYE SCH (21:00)
[2018-03-21] MEDS: ATORVASTATIN CALCIUM 10MG TABLET PO SCH (21:37)
[2018-03-21] MEDS: TAMSULOSIN HCL 0.4MG SR CAPSULE PO SCH (21:37)
[2018-03-21] MEDS: LATANOPROST 0.005% OPHTH DROPS 2.5ML BOTHEYE SCH (21:38)
[2018-03-22] VITALS (8 sets, daily range): BP systolic 91–117; BP diastolic 43–74
[2018-03-22] MEDS: HYDROMORPHONE HCL/PF 2MG/ML CPJ IV PRN ×4 (02:41→22:27)
[2018-03-22] MEDS: SODIUM CHLORIDE 0.9% INJ 3ML FLUSH IVF SCH ×3 (05:44→21:18)
[2018-03-22] MEDS: BLOOD SUGAR DIAGNOSTIC STRIP TEST SCH ×4 (06:11→21:18)
[2018-03-22] MEDS: INSULIN LISPRO 100 UNITS/ML SUBCUT SCH ×4 (07:50→21:00)
[2018-03-22] MEDS: FINASTERIDE 5MG TABLET PO SCH (09:34)
[2018-03-22] MEDS: APIXABAN 5 MG TABLET PO SCH ×2 (09:35→17:38)
[2018-03-22] MEDS: TIMOLOL MALEATE 0.5% OPHTH DROPS 5ML EACHEYE SCH ×2 (09:36→21:17)
[2018-03-22] MEDS: BRIMONIDINE 0.2% OPHTH DROPS 5ML BOTHEYE SCH ×2 (09:36→21:18)
[2018-03-22] MEDS: DORZOLAMIDE 2% OPHTH 10 ML BOTTLE BOTHEYE SCH ×2 (09:36→21:17)
[2018-03-22] MEDS: METFORMIN HCL 500MG TABLET PO SCH ×2 (10:14→17:38)
[2018-03-22] MEDS: ATORVASTATIN CALCIUM 10MG TABLET PO SCH (21:17)
[2018-03-22] MEDS: TAMSULOSIN HCL 0.4MG SR CAPSULE PO SCH (21:17)
[2018-03-22] MEDS: LATANOPROST 0.005% OPHTH DROPS 2.5ML BOTHEYE SCH (21:18)
[2018-03-23] VITALS: BP 114/68
[2018-03-23 03:39] VITALS: BP 109/61
[2018-03-23] MEDS: SODIUM CHLORIDE 0.9% INJ 3ML FLUSH IVF SCH (05:09)
[2018-03-23] MEDS: HYDROMORPHONE HCL/PF 2MG/ML CPJ IV PRN ×2 (06:11→10:23)
[2018-03-23] MEDS: BLOOD SUGAR DIAGNOSTIC STRIP TEST SCH ×2 (06:11→12:03)
[2018-03-23] MEDS: INSULIN LISPRO 100 UNITS/ML SUBCUT SCH ×2 (07:50→12:03)
[2018-03-23] MEDS: FINASTERIDE 5MG TABLET PO SCH (08:38)
[2018-03-23] MEDS: DORZOLAMIDE 2% OPHTH 10 ML BOTTLE BOTHEYE SCH (08:38)
[2018-03-23] MEDS: TIMOLOL MALEATE 0.5% OPHTH DROPS 5ML EACHEYE SCH (08:38)
[2018-03-23] MEDS: APIXABAN 5 MG TABLET PO SCH (08:38)
[2018-03-23] MEDS: METFORMIN HCL 500MG TABLET PO SCH (08:38)
[2018-03-23] MEDS: BRIMONIDINE 0.2% OPHTH DROPS 5ML BOTHEYE SCH (08:39)
[2018-03-23 12:00] VITALS: BP 106/61
[2018-03-23 14:58] VITALS: BP 106/61
== END 2018-03-23 15:44 | disposition home or self-care (01) | DRG 206 ==
LOC: ER 13:21 → 6WST 16:32 → EDBEDREQ 16:35 → ENRESERV 20:35
PROVIDERS: ADMIT Internal Medicine; ATTEND Internal Medicine
DX: M94.0 Chondrocostal junction syndrome [Tietze] (principal); I11.0 Hypertensive heart disease with heart failure; I50.9 Heart failure, unspecified; Z95.0 Presence of cardiac pacemaker; M19.90 Unspecified osteoarthritis, unspecified site; E11.9 Type 2 diabetes mellitus without complications; I25.10 Atherosclerotic heart disease of native coronary artery without angina pectoris; E78.5 Hyperlipidemia, unspecified; Z82.49 Family history of ischemic heart disease and other diseases of the circulatory system; Z95.1 Presence of aortocoronary bypass graft; Z86.711 Personal history of pulmonary embolism; I25.2 Old myocardial infarction; Z91.041 Radiographic dye allergy status; Z91.013 Allergy to seafood; Z91.048 Other nonmedicinal substance allergy status; Z79.899 Other long term (current) drug therapy
CPT/HCPCS: 36415; 71045; 78582; 80061; 82550; 82553; 82962; 83880; 84439; 84443; 84484; 93005; 93970; 96374; 96375; 96376; 99285; A9558; J1170; J2270; J2405

== ENCOUNTER 2018-03-31 18:12 | Inpatient (IN) | payer MEDICARE, MEDICAID ==
[~2018-03-31] VITALS: Ht 172.7 cm; Wt 104.3 kg
[2018-03-31] MEDS ORDERED: ASPIRIN 81MG TABLET PO ONE (22:00)
[2018-03-31] MEDS: NITROGLYCERIN 0.4MG TABLET SL SL PRN ×2 (22:05→22:12)
[2018-03-31 22:10] LABS: BASOPHILS % 0.5 % (0.0-2.0); EOSINOPHILS % 2.7 % (0.0-5.0); HEMATOCRIT. 42.1 % (42.0-52.0); HEMOGLOBIN. 13.6 g/dL (14.0-18.0); LYMPHOCYTES % 20.3 % (20.0-50.0); MEAN CORPUSCULAR HEMOGLOBIN 28.1 pg (28.0-32.0); MEAN CORPUSCULAR VOLUME 86.6 fL (80.0-94.0); MEAN PLATELET VOLUME 9.9 fl (7.4-10.4); MONOCYTES % 11.2 % (2.0-8.0); NEUTROPHILS % 65.3 % (40.0-76.0); PLATELET 171 x1000/uL (130-400); RED BLOOD CELL COUNT 4.85 mill/uL (4.7-6.1); RED CELL DISTRIBUTION WIDTH 17.1 % (11.6-14.6)
[2018-03-31 22:13] LABS: CHLORIDE 110 mEq/L (98-107)
[2018-03-31 22:17] LABS: INR 1.1; PARTIAL THROMBOPLASTIN TIME 33.1 sec (23.4-31.0); PROTHROMBIN TIME 11.2 sec (9.1-11.1)
[2018-03-31 22:20] LABS: ETHANOL BLOOD < 10 mg/dL
[2018-03-31 22:22] LABS: *AMPHETAMINES SCREEN URINE NEGATIVE (NEGATIVE); *BARBITURATES SCREEN URINE NEGATIVE (NEGATIVE); *BENZODIAZEPINES SCREEN URINE NEGATIVE (NEGATIVE); *COCAINE SCREEN URINE NEGATIVE (NEGATIVE); METHADONE URINE SCREEN NEGATIVE (NEGATIVE)
[2018-03-31 22:23] LABS: CANNABINOID URINE SCREEN NEGATIVE (NEGATIVE); OPIATES URINE SCREEN PRESUMTIVE POSITIVE (NEGATIVE); PHENCYCLIDINE URINE SCREEN NEGATIVE (NEGATIVE)
[2018-03-31] MEDS ORDERED: ONDANSETRON HCL 4MG/2ML INJ IV STA (23:11)
[2018-03-31] MEDS ORDERED: MORPHINE SULFATE 4 MG/ML CPJ (NOT FOR IM USE) IV STA (23:11)
[2018-04-01 03:19] VITALS: BP 130/76
[2018-04-01 04:00] VITALS: BP 118/71
[2018-04-01 08:00] VITALS: BP 118/63
[2018-04-01] MEDS ORDERED: MAGNESIUM/ALUMINUM HYDROXIDE/SIMETHICONE 30ML UDC PO PRN (09:30)
[2018-04-01] MEDS ORDERED: IPRATROPIUM/ALBUTEROL 0.5-3(2.5)MG/3ML NEB INH PRN (09:30)
[2018-04-01] MEDS ORDERED: ACETAMINOPHEN 325MG TABLET PO PRN (09:30)
[2018-04-01] MEDS ORDERED: CLONIDINE 0.1MG TABLET PO PRN (09:30)
[2018-04-01] MEDS ORDERED: DOCUSATE SODIUM 100MG CAPSULE PO PRN (09:30)
[2018-04-01] MEDS ORDERED: GUAIFENESIN 200MG/10ML SUGAR FREE UDC PO PRN (09:30)
[2018-04-01] MEDS ORDERED: DEXTROSE 50% WATER 50ML SYRINGE IV PRN ×2 (09:30)
[2018-04-01] MEDS: TAMSULOSIN HCL 0.4MG SR CAPSULE PO SCH (10:37)
[2018-04-01] MEDS: ATORVASTATIN CALCIUM 10MG TABLET PO SCH (10:37)
[2018-04-01] MEDS: ASPIRIN 81MG TABLET PO SCH (10:37)
[2018-04-01 12:00] VITALS: BP 112/72
[2018-04-01] MEDS: DORZOLAM/TIMOLOL 2.23/0.68% OPHTH DROPS 10ML BOTHEYE SCH ×2 (12:56→21:22)
[2018-04-01] MEDS: FINASTERIDE 5MG TABLET PO SCH (12:56)
[2018-04-01] MEDS: BRIMONIDINE 0.2% OPHTH DROPS 5ML BOTHEYE SCH ×2 (12:57→21:22)
[2018-04-01] MEDS: BLOOD SUGAR DIAGNOSTIC STRIP TEST SCH ×3 (12:59→21:22)
[2018-04-01] MEDS: METFORMIN HCL 500MG TABLET PO SCH (18:01)
[2018-04-01 20:00] VITALS: BP 101/59
[2018-04-02 04:00] VITALS: BP 106/61
[2018-04-02] MEDS: BLOOD SUGAR DIAGNOSTIC STRIP TEST SCH ×4 (06:46→21:11)
[2018-04-02 07:02] LABS: CHLORIDE 110 mEq/L (98-107)
[2018-04-02 07:10] LABS: BASOPHILS % 0.7 % (0.0-2.0); EOSINOPHILS % 2.8 % (0.0-5.0); HEMATOCRIT. 41.1 % (42.0-52.0); HEMOGLOBIN. 13.4 g/dL (14.0-18.0); LYMPHOCYTES % 24.2 % (20.0-50.0); MEAN CORPUSCULAR HEMOGLOBIN 28.3 pg (28.0-32.0); MEAN CORPUSCULAR VOLUME 86.5 fL (80.0-94.0); MEAN PLATELET VOLUME 10.2 fl (7.4-10.4); MONOCYTES % 11.3 % (2.0-8.0); PLATELET 174 x1000/uL (130-400); RED BLOOD CELL COUNT 4.75 mill/uL (4.7-6.1); RED CELL DISTRIBUTION WIDTH 17.5 % (11.6-14.6)
[2018-04-02] MEDS: METFORMIN HCL 500MG TABLET PO SCH ×2 (08:58→16:40)
[2018-04-02] MEDS: ASPIRIN 81MG TABLET PO SCH (08:58)
[2018-04-02] MEDS: ATORVASTATIN CALCIUM 10MG TABLET PO SCH (08:58)
[2018-04-02] MEDS: FINASTERIDE 5MG TABLET PO SCH (08:59)
[2018-04-02] MEDS: TAMSULOSIN HCL 0.4MG SR CAPSULE PO SCH (08:59)
[2018-04-02] MEDS: DORZOLAM/TIMOLOL 2.23/0.68% OPHTH DROPS 10ML BOTHEYE SCH ×2 (09:00→21:11)
[2018-04-02] MEDS: BRIMONIDINE 0.2% OPHTH DROPS 5ML BOTHEYE SCH ×2 (09:00→21:11)
[2018-04-02] MEDS: APIXABAN 5 MG TABLET PO SCH ×2 (11:26→16:40)
[2018-04-02 12:20] VITALS: BP 111/50
[2018-04-02 16:00] VITALS: BP 100/60
[2018-04-02] MEDS: MORPHINE SULFATE 4 MG/ML CPJ (NOT FOR IM USE) IV PRN ×2 (16:41→23:16)
[2018-04-02 20:01] VITALS: BP 114/61
[2018-04-03 00:24] VITALS: BP 109/52
[2018-04-03 04:00] VITALS: BP 107/56
[2018-04-03] MEDS: MORPHINE SULFATE 4 MG/ML CPJ (NOT FOR IM USE) IV PRN ×3 (05:21→19:58)
[2018-04-03] MEDS: BLOOD SUGAR DIAGNOSTIC STRIP TEST SCH ×4 (06:25→20:04)
[2018-04-03 07:38] VITALS: BP 89/65
[2018-04-03 07:40] LABS: EOSINOPHILS % 3.2 % (0.0-5.0); HEMATOCRIT. 40.4 % (42.0-52.0); HEMOGLOBIN. 13.3 g/dL (14.0-18.0); LYMPHOCYTES % 26.6 % (20.0-50.0); MEAN CORPUSCULAR HEMOGLOBIN 28.6 pg (28.0-32.0); MEAN CORPUSCULAR VOLUME 86.6 fL (80.0-94.0); MEAN PLATELET VOLUME 10.2 fl (7.4-10.4); MONOCYTES % 10.9 % (2.0-8.0); NEUTROPHILS % 58.3 % (40.0-76.0); PLATELET 161 x1000/uL (130-400); RED BLOOD CELL COUNT 4.67 mill/uL (4.7-6.1); RED CELL DISTRIBUTION WIDTH 17.2 % (11.6-14.6)
[2018-04-03] MEDS: TAMSULOSIN HCL 0.4MG SR CAPSULE PO SCH (09:00)
[2018-04-03] MEDS: ASPIRIN 81MG TABLET PO SCH (09:19)
[2018-04-03] MEDS: FINASTERIDE 5MG TABLET PO SCH (09:19)
[2018-04-03] MEDS: METFORMIN HCL 500MG TABLET PO SCH ×2 (09:19→17:10)
[2018-04-03] MEDS: BRIMONIDINE 0.2% OPHTH DROPS 5ML BOTHEYE SCH ×2 (09:20→20:04)
[2018-04-03] MEDS: DORZOLAM/TIMOLOL 2.23/0.68% OPHTH DROPS 10ML BOTHEYE SCH ×2 (09:20→20:04)
[2018-04-03] MEDS: ATORVASTATIN CALCIUM 10MG TABLET PO SCH (09:20)
[2018-04-03] MEDS: APIXABAN 5 MG TABLET PO SCH ×2 (09:20→17:10)
[2018-04-03] MEDS ORDERED: SODIUM CHLORIDE 0.9% 500 ML IV ONE (09:45)
[2018-04-03 09:49] LABS: CHLORIDE 108 mEq/L (98-107)
[2018-04-03 12:00] VITALS: BP 134/57
[2018-04-03 15:59] VITALS: BP 104/62
[2018-04-03 19:48] VITALS: BP 107/68
[2018-04-04] VITALS: BP 93/48
[2018-04-04 02:00] VITALS: BP 108/70
[2018-04-04] MEDS: MORPHINE SULFATE 4 MG/ML CPJ (NOT FOR IM USE) IV PRN (02:02)
[2018-04-04] MEDS: BLOOD SUGAR DIAGNOSTIC STRIP TEST SCH ×4 (06:46→21:46)
[2018-04-04 08:00] VITALS: BP 105/59
[2018-04-04] MEDS: ASPIRIN 81MG TABLET PO SCH (09:30)
[2018-04-04] MEDS: METFORMIN HCL 500MG TABLET PO SCH (09:30)
[2018-04-04] MEDS: BRIMONIDINE 0.2% OPHTH DROPS 5ML BOTHEYE SCH ×2 (09:30→21:45)
[2018-04-04] MEDS: ATORVASTATIN CALCIUM 10MG TABLET PO SCH (09:30)
[2018-04-04] MEDS: APIXABAN 5 MG TABLET PO SCH ×2 (09:30→17:05)
[2018-04-04] MEDS: FINASTERIDE 5MG TABLET PO SCH (09:30)
[2018-04-04] MEDS: TAMSULOSIN HCL 0.4MG SR CAPSULE PO SCH (09:30)
[2018-04-04] MEDS: DORZOLAM/TIMOLOL 2.23/0.68% OPHTH DROPS 10ML BOTHEYE SCH ×2 (09:30→21:45)
[2018-04-04 11:04] VITALS: BP 105/59
[2018-04-04] MEDS ORDERED: TRAMADOL 50MG TABLET PO PRN (13:15)
[2018-04-04 16:00] VITALS: BP 111/69
[2018-04-04 20:00] VITALS: BP 116/64
[2018-04-05] VITALS: BP 92/51
[2018-04-05 04:00] VITALS: BP 115/61
[2018-04-05] MEDS: BLOOD SUGAR DIAGNOSTIC STRIP TEST SCH ×4 (07:20→21:00)
[2018-04-05 08:00] VITALS: BP 104/65
[2018-04-05] MEDS: ASPIRIN 81MG TABLET PO SCH (09:55)
[2018-04-05] MEDS: ATORVASTATIN CALCIUM 10MG TABLET PO SCH (09:55)
[2018-04-05] MEDS: FINASTERIDE 5MG TABLET PO SCH (09:55)
[2018-04-05] MEDS: TAMSULOSIN HCL 0.4MG SR CAPSULE PO SCH (09:55)
[2018-04-05] MEDS: METFORMIN HCL 500MG TABLET PO SCH (09:56)
[2018-04-05] MEDS: DORZOLAM/TIMOLOL 2.23/0.68% OPHTH DROPS 10ML BOTHEYE SCH ×2 (09:59→21:29)
[2018-04-05] MEDS: BRIMONIDINE 0.2% OPHTH DROPS 5ML BOTHEYE SCH ×2 (09:59→21:29)
[2018-04-05] MEDS: APIXABAN 5 MG TABLET PO SCH ×2 (10:06→17:13)
[2018-04-05 11:45] VITALS: BP 90/52
[2018-04-05 15:59] VITALS: BP 115/65
[2018-04-05 20:00] VITALS: BP 105/60
[2018-04-06] VITALS: BP 109/60
[2018-04-06 04:00] VITALS: BP 110/59
[2018-04-06] MEDS: BLOOD SUGAR DIAGNOSTIC STRIP TEST SCH ×2 (07:00→12:20)
[2018-04-06] MEDS: TAMSULOSIN HCL 0.4MG SR CAPSULE PO SCH (08:41)
[2018-04-06] MEDS: ATORVASTATIN CALCIUM 10MG TABLET PO SCH (08:41)
[2018-04-06] MEDS: ASPIRIN 81MG TABLET PO SCH (08:41)
[2018-04-06] MEDS: BRIMONIDINE 0.2% OPHTH DROPS 5ML BOTHEYE SCH (08:42)
[2018-04-06] MEDS: APIXABAN 5 MG TABLET PO SCH (08:42)
[2018-04-06] MEDS: DORZOLAM/TIMOLOL 2.23/0.68% OPHTH DROPS 10ML BOTHEYE SCH (08:42)
[2018-04-06] MEDS: FINASTERIDE 5MG TABLET PO SCH (08:42)
[2018-04-06] MEDS: METFORMIN HCL 500MG TABLET PO SCH (08:43)
== END 2018-04-06 18:00 | disposition home or self-care (01) | DRG 206 ==
LOC: ER 18:12 → 6WST 23:13 → ENRESERV 04-01 02:23
PROVIDERS: ADMIT Hospitalist; ATTEND Hospitalist
DX: M94.0 Chondrocostal junction syndrome [Tietze] (principal); D68.59 Other primary thrombophilia; I95.9 Hypotension, unspecified; I49.5 Sick sinus syndrome; I10 Essential (primary) hypertension; E11.9 Type 2 diabetes mellitus without complications; Z86.711 Personal history of pulmonary embolism; Z95.1 Presence of aortocoronary bypass graft; Z95.0 Presence of cardiac pacemaker; I25.10 Atherosclerotic heart disease of native coronary artery without angina pectoris; E78.00 Pure hypercholesterolemia, unspecified; Z86.718 Personal history of other venous thrombosis and embolism; Z91.041 Radiographic dye allergy status; Z91.013 Allergy to seafood; Z91.048 Other nonmedicinal substance allergy status; Z82.49 Family history of ischemic heart disease and other diseases of the circulatory system
CPT/HCPCS: 36415; 71045; 80048; 80061; 80305; 82962; 83036; 83735; 83880; 84443; 84484; 93005; 96374; 99285; C1893; G0482; J2270; J2405; J7040

== ENCOUNTER 2018-04-23 17:39 | Inpatient (IN) | payer MEDICARE, MEDICAID ==
[~2018-04-23] VITALS: Ht 172.7 cm; Wt 88.9 kg
[2018-04-23 19:35] LABS: BASOPHILS % 0.4 % (0.0-2.0); EOSINOPHILS % 2.2 % (0.0-5.0); HEMATOCRIT. 47.3 % (42.0-52.0); HEMOGLOBIN. 15.6 g/dL (14.0-18.0); LYMPHOCYTES % 17.7 % (20.0-50.0); MEAN CORPUSCULAR HEMOGLOBIN 28.5 pg (28.0-32.0); MEAN CORPUSCULAR VOLUME 86.7 fL (80.0-94.0); MEAN PLATELET VOLUME 9.4 fl (7.4-10.4); MONOCYTES % 10.1 % (2.0-8.0); NEUTROPHILS % 69.6 % (40.0-76.0); PLATELET 183 x1000/uL (130-400); RED BLOOD CELL COUNT 5.46 mill/uL (4.7-6.1); RED CELL DISTRIBUTION WIDTH 17.2 % (11.6-14.6)
[2018-04-23 19:39] LABS: CHLORIDE 105 mEq/L (98-107)
[2018-04-23 19:51] LABS: PARTIAL THROMBOPLASTIN TIME 30.1 sec (23.4-31.0); PROTHROMBIN TIME 10.2 sec (9.1-11.1)
[2018-04-23] MEDS ORDERED: ASPIRIN 325MG TABLET PO ONE (23:15)
[2018-04-23] MEDS ORDERED: NITROGLYCERIN 0.4MG TABLET SL SL ONE (23:15)
[2018-04-23] MEDS ORDERED: MAGNESIUM/ALUMINUM HYDROXIDE/SIMETHICONE 30ML UDC PO ONE (23:30)
[2018-04-23] MEDS ORDERED: VISCOUS LIDOCAINE 2% 15 ML UDC PO ONE (23:30)
[2018-04-24] MEDS ORDERED: DOCUSATE SODIUM 100MG CAPSULE PO PRN (07:15)
[2018-04-24] MEDS ORDERED: HYDROCODONE/ACETAMINOPHEN 5/325MG TABLET PO PRN (07:15)
[2018-04-24] MEDS ORDERED: CLONIDINE 0.1MG TABLET PO PRN (07:15)
[2018-04-24] MEDS ORDERED: NITROGLYCERIN 0.4MG TABLET SL SL PRN (07:15)
[2018-04-24] MEDS ORDERED: ONDANSETRON HCL 4MG/2ML INJ IV PRN (07:15)
[2018-04-24] MEDS ORDERED: MAGNESIUM/ALUMINUM HYDROXIDE/SIMETHICONE 30ML UDC PO PRN (07:15)
[2018-04-24 11:00] VITALS: BP 117/55
[2018-04-24] MEDS: FINASTERIDE 5MG TABLET PO SCH (11:56)
[2018-04-24] MEDS: METFORMIN HCL 500MG TABLET PO SCH ×2 (11:56→18:20)
[2018-04-24] MEDS: TAMSULOSIN HCL 0.4MG SR CAPSULE PO SCH (11:56)
[2018-04-24] MEDS: APIXABAN 5 MG TABLET PO SCH ×2 (11:56→17:38)
[2018-04-24 12:00] VITALS: BP 117/55
[2018-04-24] MEDS: ACETAMINOPHEN 325MG TABLET PO PRN (12:38)
[2018-04-24] MEDS: NITROGLYCERIN 0.2MG/HR PATCH TOP SCH (13:30)
[2018-04-24 16:00] VITALS: BP 119/55
[2018-04-24] MEDS: GUAIFENESIN 200MG/10ML SUGAR FREE UDC PO PRN ×2 (17:38→23:45)
[2018-04-24 20:00] VITALS: BP 106/62
[2018-04-24] MEDS: BRIMONIDINE 0.2% OPHTH DROPS 5ML BOTHEYE SCH (20:52)
[2018-04-24] MEDS: DORZOLAM/TIMOLOL 2.23/0.68% OPHTH DROPS 10ML BOTHEYE SCH (20:52)
[2018-04-25] VITALS: BP 108/67
[2018-04-25] MEDS: ACETAMINOPHEN 325MG TABLET PO PRN ×3 (02:52→23:59)
[2018-04-25 04:00] VITALS: BP 110/55
[2018-04-25] MEDS: GUAIFENESIN 200MG/10ML SUGAR FREE UDC PO PRN ×3 (05:46→20:06)
[2018-04-25 06:19] LABS: BASOPHILS % 0.4 % (0.0-2.0); EOSINOPHILS % 2.6 % (0.0-5.0); HEMATOCRIT. 43.4 % (42.0-52.0); HEMOGLOBIN. 14.3 g/dL (14.0-18.0); LYMPHOCYTES % 16.7 % (20.0-50.0); MEAN CORPUSCULAR HEMOGLOBIN 28.7 pg (28.0-32.0); MEAN CORPUSCULAR VOLUME 87.1 fL (80.0-94.0); MEAN PLATELET VOLUME 10.7 fl (7.4-10.4); MONOCYTES % 10.3 % (2.0-8.0); PLATELET 192 x1000/uL (130-400); RED BLOOD CELL COUNT 4.99 mill/uL (4.7-6.1); RED CELL DISTRIBUTION WIDTH 17.1 % (11.6-14.6)
[2018-04-25 06:23] LABS: CHLORIDE 107 mEq/L (98-107)
[2018-04-25 06:36] LABS: HDL CHOLESTEROL 38 mg/dL (40-59); LDL CHOLESTEROL 69 mg/dL (5-100)
[2018-04-25 08:00] VITALS: BP 109/64
[2018-04-25] MEDS: BRIMONIDINE 0.2% OPHTH DROPS 5ML BOTHEYE SCH ×2 (08:44→22:06)
[2018-04-25] MEDS: APIXABAN 5 MG TABLET PO SCH ×2 (08:45→17:33)
[2018-04-25] MEDS: FINASTERIDE 5MG TABLET PO SCH (08:45)
[2018-04-25] MEDS: METFORMIN HCL 500MG TABLET PO SCH ×2 (08:45→17:33)
[2018-04-25] MEDS: DORZOLAM/TIMOLOL 2.23/0.68% OPHTH DROPS 10ML BOTHEYE SCH ×2 (08:45→22:06)
[2018-04-25] MEDS: NITROGLYCERIN 0.2MG/HR PATCH TOP SCH (08:46)
[2018-04-25] MEDS: TAMSULOSIN HCL 0.4MG SR CAPSULE PO SCH (08:46)
[2018-04-25] MEDS: ISOSORBIDE MONONITRATE 30MG TABLET SR 24HR PO SCH (10:15)
[2018-04-25 12:00] VITALS: BP 90/55
[2018-04-25 16:00] VITALS: BP 104/70
[2018-04-25 20:00] VITALS: BP 112/66
[2018-04-26 00:31] VITALS: BP 93/54
[2018-04-26] MEDS ORDERED: DEXTROSE 50% WATER 50ML SYRINGE IV PRN (01:00)
[2018-04-26 04:00] VITALS: BP 103/57
[2018-04-26] MEDS: GUAIFENESIN 200MG/10ML SUGAR FREE UDC PO PRN ×3 (05:10→19:22)
[2018-04-26] MEDS: BLOOD SUGAR DIAGNOSTIC STRIP TEST SCH ×4 (06:50→20:29)
[2018-04-26] MEDS: INSULIN LISPRO 100 UNITS/ML SUBCUT SCH ×4 (07:21→20:29)
[2018-04-26 07:56] VITALS: BP 115/83
[2018-04-26] MEDS: ISOSORBIDE MONONITRATE 30MG TABLET SR 24HR PO SCH (08:27)
[2018-04-26] MEDS: APIXABAN 5 MG TABLET PO SCH ×2 (08:27→17:11)
[2018-04-26] MEDS: FINASTERIDE 5MG TABLET PO SCH (08:27)
[2018-04-26] MEDS: METFORMIN HCL 500MG TABLET PO SCH ×2 (08:27→17:11)
[2018-04-26] MEDS: TAMSULOSIN HCL 0.4MG SR CAPSULE PO SCH (08:27)
[2018-04-26] MEDS: BRIMONIDINE 0.2% OPHTH DROPS 5ML BOTHEYE SCH ×2 (08:28→20:29)
[2018-04-26] MEDS: DORZOLAM/TIMOLOL 2.23/0.68% OPHTH DROPS 10ML BOTHEYE SCH ×2 (08:28→20:29)
[2018-04-26] MEDS: NITROGLYCERIN 0.2MG/HR PATCH TOP SCH (08:28)
[2018-04-26 12:00] VITALS: BP 93/47
[2018-04-26] MEDS ORDERED: REGADENOSON 0.4 MG/5 ML IV ONE (12:30)
[2018-04-26 16:00] VITALS: BP 105/45
[2018-04-26 20:00] VITALS: BP 83/59
[2018-04-27 00:14] VITALS: BP 102/61
[2018-04-27] MEDS: GUAIFENESIN 200MG/10ML SUGAR FREE UDC PO PRN ×4 (02:10→22:58)
[2018-04-27 04:00] VITALS: BP 96/42
[2018-04-27] MEDS: BLOOD SUGAR DIAGNOSTIC STRIP TEST SCH ×4 (05:51→20:18)
[2018-04-27 08:00] VITALS: BP 96/45
[2018-04-27] MEDS: ACETAMINOPHEN 325MG TABLET PO PRN (08:04)
[2018-04-27] MEDS: INSULIN LISPRO 100 UNITS/ML SUBCUT SCH ×4 (08:10→20:48)
[2018-04-27] MEDS: FINASTERIDE 5MG TABLET PO SCH (08:30)
[2018-04-27] MEDS: METFORMIN HCL 500MG TABLET PO SCH ×2 (08:31→17:31)
[2018-04-27] MEDS: APIXABAN 5 MG TABLET PO SCH ×2 (08:34→17:31)
[2018-04-27] MEDS: ISOSORBIDE MONONITRATE 30MG TABLET SR 24HR PO SCH (08:35)
[2018-04-27] MEDS: TAMSULOSIN HCL 0.4MG SR CAPSULE PO SCH (08:35)
[2018-04-27] MEDS: DORZOLAM/TIMOLOL 2.23/0.68% OPHTH DROPS 10ML BOTHEYE SCH ×2 (08:37→20:49)
[2018-04-27] MEDS: BRIMONIDINE 0.2% OPHTH DROPS 5ML BOTHEYE SCH ×2 (08:37→20:49)
[2018-04-27] MEDS: NITROGLYCERIN 0.2MG/HR PATCH TOP SCH (08:48)
[2018-04-27 12:00] VITALS: BP 90/56
[2018-04-27] MEDS ORDERED: REGADENOSON 0.4 MG/5 ML IV ONE (13:30)
[2018-04-27 16:00] VITALS: BP 103/41
[2018-04-27 20:00] VITALS: BP 133/81
[2018-04-28] VITALS: BP 103/72
[2018-04-28 04:00] VITALS: BP 105/68
[2018-04-28 06:20] LABS: CHLORIDE 108 mEq/L (98-107)
[2018-04-28 06:25] LABS: BASOPHILS % 0.6 % (0.0-2.0); EOSINOPHILS % 2.5 % (0.0-5.0); HEMATOCRIT. 42.4 % (42.0-52.0); LYMPHOCYTES % 21.8 % (20.0-50.0); MEAN CORPUSCULAR HEMOGLOBIN 28.6 pg (28.0-32.0); MEAN CORPUSCULAR VOLUME 86.4 fL (80.0-94.0); MEAN PLATELET VOLUME 9.9 fl (7.4-10.4); MONOCYTES % 11.8 % (2.0-8.0); NEUTROPHILS % 63.3 % (40.0-76.0); PLATELET 156 x1000/uL (130-400); RED CELL DISTRIBUTION WIDTH 16.8 % (11.6-14.6)
[2018-04-28] MEDS: BLOOD SUGAR DIAGNOSTIC STRIP TEST SCH ×4 (06:41→21:23)
[2018-04-28 08:00] VITALS: BP 89/36
[2018-04-28] MEDS: INSULIN LISPRO 100 UNITS/ML SUBCUT SCH ×4 (08:10→21:32)
[2018-04-28] MEDS: FINASTERIDE 5MG TABLET PO SCH (09:15)
[2018-04-28] MEDS: METFORMIN HCL 500MG TABLET PO SCH ×2 (09:16→17:05)
[2018-04-28] MEDS: DORZOLAM/TIMOLOL 2.23/0.68% OPHTH DROPS 10ML BOTHEYE SCH ×2 (09:17→21:31)
[2018-04-28] MEDS: BRIMONIDINE 0.2% OPHTH DROPS 5ML BOTHEYE SCH ×2 (09:17→21:31)
[2018-04-28] MEDS: GUAIFENESIN 200MG/10ML SUGAR FREE UDC PO PRN ×2 (09:22→17:05)
[2018-04-28] MEDS: TAMSULOSIN HCL 0.4MG SR CAPSULE PO SCH (09:22)
[2018-04-28] MEDS: APIXABAN 5 MG TABLET PO SCH ×2 (09:22→17:05)
[2018-04-28] MEDS ORDERED: SODIUM CHLORIDE 0.9% 500 ML IV ONE (10:30)
[2018-04-28 12:00] VITALS: BP 92/70
[2018-04-28 20:00] VITALS: BP 112/55
[2018-04-29] VITALS: BP 110/62
[2018-04-29] MEDS: GUAIFENESIN 200MG/10ML SUGAR FREE UDC PO PRN ×3 (00:08→17:15)
[2018-04-29 04:00] VITALS: BP 95/58
[2018-04-29 06:17] LABS: BASOPHILS % 0.4 % (0.0-2.0); EOSINOPHILS % 1.9 % (0.0-5.0); HEMATOCRIT. 42.3 % (42.0-52.0); LYMPHOCYTES % 18.3 % (20.0-50.0); MEAN CORPUSCULAR HEMOGLOBIN 28.9 pg (28.0-32.0); MEAN CORPUSCULAR VOLUME 87.8 fL (80.0-94.0); MEAN PLATELET VOLUME 9.7 fl (7.4-10.4); MONOCYTES % 9.1 % (2.0-8.0); NEUTROPHILS % 70.3 % (40.0-76.0); PLATELET 147 x1000/uL (130-400); RED BLOOD CELL COUNT 4.82 mill/uL (4.7-6.1); RED CELL DISTRIBUTION WIDTH 17.1 % (11.6-14.6)
[2018-04-29 06:23] LABS: CHLORIDE 109 mEq/L (98-107)
[2018-04-29] MEDS: BLOOD SUGAR DIAGNOSTIC STRIP TEST SCH ×4 (06:34→21:10)
[2018-04-29] MEDS: INSULIN LISPRO 100 UNITS/ML SUBCUT SCH ×4 (08:10→21:18)
[2018-04-29 08:39] VITALS: BP 98/58
[2018-04-29] MEDS: METFORMIN HCL 500MG TABLET PO SCH ×2 (08:41→18:43)
[2018-04-29] MEDS: TAMSULOSIN HCL 0.4MG SR CAPSULE PO SCH (08:42)
[2018-04-29] MEDS: APIXABAN 5 MG TABLET PO SCH ×2 (08:42→17:15)
[2018-04-29] MEDS: FINASTERIDE 5MG TABLET PO SCH (08:42)
[2018-04-29] MEDS: BRIMONIDINE 0.2% OPHTH DROPS 5ML BOTHEYE SCH ×2 (08:44→21:19)
[2018-04-29] MEDS: DORZOLAM/TIMOLOL 2.23/0.68% OPHTH DROPS 10ML BOTHEYE SCH ×2 (08:44→21:19)
[2018-04-29 12:00] VITALS: BP 104/65
[2018-04-29 16:00] VITALS: BP 109/66
[2018-04-29 20:00] VITALS: BP 110/78
[2018-04-30] VITALS: BP 88/45
[2018-04-30] MEDS: GUAIFENESIN 200MG/10ML SUGAR FREE UDC PO PRN ×2 (00:05→12:41)
[2018-04-30 04:00] VITALS: BP 103/60
[2018-04-30] MEDS: BLOOD SUGAR DIAGNOSTIC STRIP TEST SCH ×2 (06:41→12:43)
[2018-04-30 08:00] VITALS: BP 115/64
[2018-04-30] MEDS: INSULIN LISPRO 100 UNITS/ML SUBCUT SCH ×2 (08:10→12:44)
[2018-04-30] MEDS: DORZOLAM/TIMOLOL 2.23/0.68% OPHTH DROPS 10ML BOTHEYE SCH (11:23)
[2018-04-30] MEDS: FINASTERIDE 5MG TABLET PO SCH (11:24)
[2018-04-30] MEDS: APIXABAN 5 MG TABLET PO SCH (11:24)
[2018-04-30] MEDS: METFORMIN HCL 500MG TABLET PO SCH (11:24)
[2018-04-30] MEDS: TAMSULOSIN HCL 0.4MG SR CAPSULE PO SCH (11:24)
[2018-04-30] MEDS: BRIMONIDINE 0.2% OPHTH DROPS 5ML BOTHEYE SCH (11:25)
== END 2018-04-30 14:51 | disposition home or self-care (01) | DRG 303 ==
LOC: ER 17:56 → 7WST 04-24 03:31 → EDBEDREQTM 04-24 03:37 → EDBEDREQ 04-24 03:37 → ENRESERV 04-24 09:03 → 7WST 04-25 23:17
PROVIDERS: ADMIT Hospitalist; ATTEND Hospitalist
DX: I25.119 Atherosclerotic heart disease of native coronary artery with unspecified angina pectoris (principal); D68.59 Other primary thrombophilia; I49.5 Sick sinus syndrome; N40.0 Benign prostatic hyperplasia without lower urinary tract symptoms; E11.9 Type 2 diabetes mellitus without complications; I11.9 Hypertensive heart disease without heart failure; I95.9 Hypotension, unspecified; E78.5 Hyperlipidemia, unspecified; Z95.0 Presence of cardiac pacemaker; Z82.49 Family history of ischemic heart disease and other diseases of the circulatory system; Z95.1 Presence of aortocoronary bypass graft; Z86.711 Personal history of pulmonary embolism; Z91.041 Radiographic dye allergy status; Z91.013 Allergy to seafood; Z86.718 Personal history of other venous thrombosis and embolism
CPT/HCPCS: 36415; 71045; 80048; 80061; 82962; 83880; 84484; 93005; 93306; 99285; J1815; J7040

== ENCOUNTER 2018-06-10 21:49 | Inpatient (IN) | payer MEDICARE, MEDICAID ==
[~2018-06-10] VITALS: Ht 167.6 cm; Wt 91.2 kg
[2018-06-10] MEDS ORDERED: ASPIRIN 325MG TABLET PO ONE (23:30)
[2018-06-10 23:43] LABS: BASOPHILS % 0.8 % (0.0-2.0); EOSINOPHILS % 3.6 % (0.0-5.0); HEMATOCRIT. 41.4 % (42.0-52.0); HEMOGLOBIN. 13.6 g/dL (14.0-18.0); LYMPHOCYTES % 23.1 % (20.0-50.0); MEAN CORPUSCULAR HEMOGLOBIN 28.8 pg (28.0-32.0); MEAN CORPUSCULAR VOLUME 87.6 fL (80.0-94.0); MEAN PLATELET VOLUME 9.4 fl (7.4-10.4); NEUTROPHILS % 61.5 % (40.0-76.0); PLATELET 145 x1000/uL (130-400); RED BLOOD CELL COUNT 4.72 mill/uL (4.7-6.1); RED CELL DISTRIBUTION WIDTH 16.6 % (11.6-14.6)
[2018-06-10] MEDS ORDERED: ONDANSETRON HCL 4MG/2ML INJ IV ONE (23:45)
[2018-06-10] MEDS ORDERED: MORPHINE SULFATE 4 MG/ML CPJ (NOT FOR IM USE) IV ONE (23:45)
[2018-06-10] MEDS ORDERED: SODIUM CHLORIDE 0.9% 500 ML IV ONE (23:45)
[2018-06-10 23:52] LABS: PARTIAL THROMBOPLASTIN TIME 27.3 sec (23.4-31.0); PROTHROMBIN TIME 10.1 sec (9.6-11.0)
[2018-06-11 00:52] LABS: CHLORIDE 111 mEq/L (98-107)
[2018-06-11 10:00] VITALS: BP 132/79
[2018-06-11] MEDS ORDERED: MAGNESIUM/ALUMINUM HYDROXIDE/SIMETHICONE 30ML UDC PO PRN (11:30)
[2018-06-11] MEDS ORDERED: CLONIDINE 0.1MG TABLET PO PRN (11:30)
[2018-06-11] MEDS ORDERED: TRAMADOL 50MG TABLET PO PRN (11:30)
[2018-06-11] MEDS ORDERED: DEXTROSE 50% WATER 50ML SYRINGE IV PRN (11:30)
[2018-06-11] MEDS ORDERED: NITROGLYCERIN 0.4MG TABLET SL SL PRN (11:30)
[2018-06-11] MEDS ORDERED: NA PHOS,M-B/NA PHOS,DI-BA ENEMA 118ML PR PRN (11:30)
[2018-06-11] MEDS ORDERED: DIPHENHYDRAMINE 50MG/ML VIAL IV PRN (11:30)
[2018-06-11] MEDS ORDERED: IPRATROPIUM/ALBUTEROL 0.5-3(2.5)MG/3ML NEB INH PRN (11:30)
[2018-06-11] MEDS ORDERED: ACETAMINOPHEN 325MG TABLET PO PRN (11:30)
[2018-06-11] MEDS ORDERED: DOCUSATE SODIUM 100MG CAPSULE PO PRN (11:30)
[2018-06-11] MEDS ORDERED: ZOLPIDEM TARTRATE 5MG TABLET PO PRN (11:30)
[2018-06-11] MEDS ORDERED: LORAZEPAM 0.5MG TABLET PO PRN (11:30)
[2018-06-11] MEDS ORDERED: ONDANSETRON HCL 4MG/2ML INJ IV PRN (11:30)
[2018-06-11] MEDS: BLOOD SUGAR DIAGNOSTIC STRIP TEST SCH ×3 (12:20→21:15)
[2018-06-11 12:35] VITALS: BP 104/43
[2018-06-11] MEDS: INSULIN LISPRO 100 UNITS/ML SUBCUT SCH ×3 (12:50→21:00)
[2018-06-11 13:34] LABS: CREATINE KINASE 94 IU/L (39-308)
[2018-06-11 13:35] LABS: CREATINE KINASE MB FRACTION 1.4 ng/mL (0.5-3.6)
[2018-06-11] MEDS: KETOROLAC 30MG/ML VIAL IV PRN ×2 (14:04→15:50)
[2018-06-11] MEDS: SUCRALFATE 1 G/10 ML UDC PO SCH ×3 (14:04→21:00)
[2018-06-11] MEDS: APIXABAN 5 MG TABLET PO SCH ×2 (14:04→17:11)
[2018-06-11] MEDS: ASPIRIN 325MG EC TABLET PO SCH (14:04)
[2018-06-11 16:22] VITALS: BP 115/63
[2018-06-11 20:09] VITALS: BP 107/57
[2018-06-11 20:48] LABS: CREATINE KINASE 100 IU/L (39-308)
[2018-06-11 20:49] LABS: CREATINE KINASE MB FRACTION 1.8 ng/mL (0.5-3.6)
[2018-06-11 21:00] VITALS: BP 118/68
[2018-06-11] MEDS: FAMOTIDINE 20MG TABLET PO SCH (21:00)
[2018-06-11] MEDS: MORPHINE SULFATE 4 MG/ML CPJ (NOT FOR IM USE) IV PRN (21:09)
[2018-06-12] VITALS (7 sets, daily range): BP systolic 104–117; BP diastolic 57–76
[2018-06-12] MEDS: MORPHINE SULFATE 4 MG/ML CPJ (NOT FOR IM USE) IV PRN ×5 (03:52→21:35)
[2018-06-12] MEDS: BLOOD SUGAR DIAGNOSTIC STRIP TEST SCH ×4 (06:28→21:33)
[2018-06-12] MEDS: SUCRALFATE 1 G/10 ML UDC PO SCH ×7 (06:28→21:33)
[2018-06-12] MEDS ORDERED: MEDICATION NOT ON FORMULARY EA (Brimonidine Tartrate (Alphagan P) 1 DROP) BOTHEYE SCH (09:00)
[2018-06-12] MEDS ORDERED: TAMSULOSIN HCL 0.4MG SR CAPSULE PO SCH ×2 (09:00→22:00)
[2018-06-12] MEDS ORDERED: DORZOLAM/TIMOLOL 2.23/0.68% OPHTH DROPS 10ML BOTHEYE SCH (09:00)
[2018-06-12] MEDS: FAMOTIDINE 20MG TABLET PO SCH ×3 (09:14→21:33)
[2018-06-12] MEDS: ASPIRIN 325MG EC TABLET PO SCH (09:14)
[2018-06-12] MEDS: APIXABAN 5 MG TABLET PO SCH ×2 (09:14→17:53)
[2018-06-12] MEDS: DORZOLAMIDE 2% OPHTH 10 ML BOTTLE EACHEYE SCH ×2 (09:14→17:54)
[2018-06-12] MEDS: TIMOLOL MALEATE 0.5% OPHTH DROPS 5ML EACHEYE SCH ×2 (09:15→17:54)
[2018-06-12] MEDS: BRIMONIDINE 0.2% OPHTH DROPS 5ML BOTHEYE SCH ×2 (09:15→17:54)
[2018-06-12] MEDS: INSULIN LISPRO 100 UNITS/ML SUBCUT SCH ×4 (09:20→21:00)
[2018-06-12] MEDS ORDERED: MEDICATION NOT ON FORMULARY EA (Travoprost (Travatan Z) 1 DROP) BOTHEYE SCH (21:00)
[2018-06-12] MEDS ORDERED: LATANOPROST 0.005% OPHTH DROPS 2.5ML BOTHEYE SCH (21:00)
[2018-06-13] MEDS: MORPHINE SULFATE 4 MG/ML CPJ (NOT FOR IM USE) IV PRN ×2 (02:34→09:17)
[2018-06-13 06:46] LABS: *AMPHETAMINES SCREEN URINE NEGATIVE (NEGATIVE)
[2018-06-13 06:47] LABS: *BARBITURATES SCREEN URINE NEGATIVE (NEGATIVE); *BENZODIAZEPINES SCREEN URINE NEGATIVE (NEGATIVE); *COCAINE SCREEN URINE NEGATIVE (NEGATIVE); METHADONE URINE SCREEN NEGATIVE (NEGATIVE); OPIATES URINE SCREEN PRESUMTIVE POSITIVE (NEGATIVE)
[2018-06-13 06:48] LABS: CANNABINOID URINE SCREEN NEGATIVE (NEGATIVE); PHENCYCLIDINE URINE SCREEN NEGATIVE (NEGATIVE)
[2018-06-13] MEDS: SUCRALFATE 1 G/10 ML UDC PO SCH ×2 (06:48→12:20)
[2018-06-13] MEDS: BLOOD SUGAR DIAGNOSTIC STRIP TEST SCH ×2 (06:49→12:40)
[2018-06-13] MEDS: INSULIN LISPRO 100 UNITS/ML SUBCUT SCH ×2 (07:36→12:40)
[2018-06-13 08:00] VITALS: BP 112/58
[2018-06-13] MEDS: FAMOTIDINE 20MG TABLET PO SCH (09:00)
[2018-06-13] MEDS: APIXABAN 5 MG TABLET PO SCH (09:11)
[2018-06-13] MEDS: ASPIRIN 325MG EC TABLET PO SCH (09:11)
[2018-06-13] MEDS: BRIMONIDINE 0.2% OPHTH DROPS 5ML BOTHEYE SCH (09:12)
[2018-06-13] MEDS: TIMOLOL MALEATE 0.5% OPHTH DROPS 5ML EACHEYE SCH (09:12)
[2018-06-13] MEDS: DORZOLAMIDE 2% OPHTH 10 ML BOTTLE EACHEYE SCH (09:12)
[2018-06-13 11:39] VITALS: BP 119/71
[2018-06-13 12:00] VITALS: BP 119/71
== END 2018-06-13 13:47 | disposition home or self-care (01) | DRG 203 ==
LOC: ER 21:49 → EDBEDREQ 06-11 06:28 → EDBEDREQTM 06-11 06:28 → EDBEDREQDT 06-11 06:28 → 6WST 06-11 06:32 → ENRESERV 06-11 07:09
PROVIDERS: ADMIT Internal Medicine; ATTEND Internal Medicine
DX: R07.89 Other chest pain (principal); I42.9 Cardiomyopathy, unspecified; E11.9 Type 2 diabetes mellitus without complications; N40.0 Benign prostatic hyperplasia without lower urinary tract symptoms; H40.9 Unspecified glaucoma; I10 Essential (primary) hypertension; J44.9 Chronic obstructive pulmonary disease, unspecified; E78.00 Pure hypercholesterolemia, unspecified; Z76.5 Malingerer [conscious simulation]; Z95.0 Presence of cardiac pacemaker; Z95.828 Presence of other vascular implants and grafts; Z79.84 Long term (current) use of oral hypoglycemic drugs; Z79.4 Long term (current) use of insulin; Z79.82 Long term (current) use of aspirin; Z88.8 Allergy status to other drugs, medicaments and biological substances; Z91.041 Radiographic dye allergy status; Z91.013 Allergy to seafood; Z91.048 Other nonmedicinal substance allergy status; Z86.718 Personal history of other venous thrombosis and embolism; Z86.711 Personal history of pulmonary embolism; Z82.49 Family history of ischemic heart disease and other diseases of the circulatory system
CPT/HCPCS: 36415; 71045; 80061; 80305; 82550; 82553; 82962; 83036; 83880; 84484; 85379; 93005; 93306; 93970; 96374; 96375; 99285; C1893; J1815; J1885; J2270; J2405; J7040

== ENCOUNTER 2018-07-20 11:33 | Inpatient (IN) | payer MEDICARE, MEDICAID ==
[~2018-07-20] VITALS: Ht 172.7 cm; Wt 88.9 kg
[~2018-07-20 11:33] MED LIST changes: -ASPI-1158 PO
[2018-07-20 13:14] LABS: BASOPHILS % 0.6 % (0.0-2.0); EOSINOPHILS % 2.6 % (0.0-5.0); HEMATOCRIT. 42.5 % (42.0-52.0); HEMOGLOBIN. 13.9 g/dL (14.0-18.0); LYMPHOCYTES % 17.9 % (20.0-50.0); MEAN CORPUSCULAR HEMOGLOBIN 28.6 pg (28.0-32.0); MEAN CORPUSCULAR VOLUME 87.3 fL (80.0-94.0); MEAN PLATELET VOLUME 9.9 fl (7.4-10.4); MONOCYTES % 10.8 % (2.0-8.0); NEUTROPHILS % 68.1 % (40.0-76.0); PLATELET 155 x1000/uL (130-400); RED BLOOD CELL COUNT 4.86 mill/uL (4.7-6.1); RED CELL DISTRIBUTION WIDTH 16.1 % (11.6-14.6)
[2018-07-20 13:19] LABS: CHLORIDE 109 mEq/L (98-107)
[2018-07-20] MEDS ORDERED: ASPIRIN 325MG EC TABLET PO ONE (14:00)
[2018-07-20] MEDS ORDERED: MORPHINE SULFATE 4 MG/ML CPJ (NOT FOR IM USE) IV ONE (14:00)
[2018-07-20 16:00] VITALS: BP 128/77
[2018-07-20 16:53] VITALS: BP 128/77
[2018-07-20] MEDS ORDERED: ACETAMINOPHEN 325MG TABLET PO PRN (18:00)
[2018-07-20] MEDS ORDERED: HYDROCODONE/ACETAMINOPHEN 5/325MG TABLET PO PRN (18:00)
[2018-07-20] MEDS ORDERED: ONDANSETRON HCL 4MG/2ML INJ IV PRN (18:00)
[2018-07-20] MEDS ORDERED: DOCUSATE SODIUM 100MG CAPSULE PO PRN (18:00)
[2018-07-20] MEDS ORDERED: GUAIFENESIN 200MG/10ML SUGAR FREE UDC PO PRN (18:00)
[2018-07-20] MEDS: TAMSULOSIN HCL 0.4MG SR CAPSULE PO SCH (18:49)
[2018-07-20] MEDS: APIXABAN 5 MG TABLET PO SCH (18:49)
[2018-07-20 20:00] VITALS: BP 112/67
[2018-07-20] MEDS: DORZOLAM/TIMOLOL 2.23/0.68% OPHTH DROPS 10ML BOTHEYE SCH (20:50)
[2018-07-20] MEDS ORDERED: ATORVASTATIN CALCIUM 10MG TABLET PO SCH (21:00)
[2018-07-20] MEDS: HYDROMORPHONE HCL/PF 2MG/ML CPJ IV PRN (22:38)
[2018-07-21] VITALS: BP 115/66
[2018-07-21] LABS: CREATINE KINASE 158 IU/L (39-308)
[2018-07-21 04:00] VITALS: BP_SYST 108; BP_SYST 98; BP_DIAS 60
[2018-07-21 07:10] LABS: BASOPHILS % 0.4 % (0.0-2.0); EOSINOPHILS % 3.2 % (0.0-5.0); HEMATOCRIT. 41.7 % (42.0-52.0); HEMOGLOBIN. 13.6 g/dL (14.0-18.0); LYMPHOCYTES % 21.6 % (20.0-50.0); MEAN CORPUSCULAR HEMOGLOBIN 28.8 pg (28.0-32.0); MEAN CORPUSCULAR VOLUME 88.4 fL (80.0-94.0); MEAN PLATELET VOLUME 10.3 fl (7.4-10.4); MONOCYTES % 11.5 % (2.0-8.0); NEUTROPHILS % 63.3 % (40.0-76.0); PLATELET 126 x1000/uL (130-400); RED BLOOD CELL COUNT 4.72 mill/uL (4.7-6.1); RED CELL DISTRIBUTION WIDTH 16.2 % (11.6-14.6)
[2018-07-21 07:42] LABS: BG BASE EXCESS -3.7 mmol/L (-2.0-2.0); BG CARBOXYHEMOGLOBIN 0.4 % (0.5-1.5); BG DEOXYHEMOGLOBIN 3.1 % (0.0-5.0); BG FRACTION INSPIRED OXYGEN 21; BG HCO3 ACT 20.9 mmol/L (22.0-26.0); BG METHEMOGLOBIN 0.2 % (0.0-1.5); BG OXYGEN SATURATION 96.9 % (92.0-98.5); BG OXYHEMOGLOBIN 96.3 % (94.0-97.0); BG PCO2 36.6 mmHg (35.0-45.0); BG PH 7.375 (7.350-7.450); BG PO2 92.1 mmHg (75.0-100.0); BG SAMPLE SITE LEFT RADIAL; BG TOTAL HEMOGLOBIN 13.9 g/dL (12.0-18.0); BG VENT MODE ROOM AIR
[2018-07-21 08:00] VITALS: BP 116/66
[2018-07-21 08:05] LABS: CHLORIDE 110 mEq/L (98-107)
[2018-07-21 08:24] LABS: LDL CHOLESTEROL 124 mg/dL (5-100)
[2018-07-21 08:25] LABS: CREATINE KINASE 125 IU/L (39-308)
[2018-07-21 08:26] LABS: HDL CHOLESTEROL 39 mg/dL (40-59)
[2018-07-21] MEDS: APIXABAN 5 MG TABLET PO SCH ×2 (08:33→16:57)
[2018-07-21] MEDS: DORZOLAM/TIMOLOL 2.23/0.68% OPHTH DROPS 10ML BOTHEYE SCH ×2 (08:33→16:58)
[2018-07-21] MEDS: TAMSULOSIN HCL 0.4MG SR CAPSULE PO SCH (08:33)
[2018-07-21] MEDS: HYDROMORPHONE HCL/PF 2MG/ML CPJ IV PRN (09:47)
[2018-07-21] MEDS ORDERED: MORPHINE SULFATE 4 MG/ML CPJ (NOT FOR IM USE) IV PRN (11:15)
[2018-07-21] MEDS ORDERED: DEXTROSE 50% WATER 50ML SYRINGE IV PRN (12:15)
[2018-07-21] MEDS: BLOOD SUGAR DIAGNOSTIC STRIP TEST SCH ×2 (12:38→17:03)
[2018-07-21] MEDS: INSULIN LISPRO 100 UNITS/ML SUBCUT SCH ×3 (12:41→20:32)
[2018-07-21] MEDS: FINASTERIDE 5MG TABLET PO SCH (12:44)
[2018-07-21 16:00] VITALS: BP 114/66
[2018-07-21] MEDS: METFORMIN HCL 500MG TABLET PO SCH (16:57)
[2018-07-21 20:00] VITALS: BP 105/58
[2018-07-21] MEDS ORDERED: ATORVASTATIN CALCIUM 10MG TABLET PO SCH (21:00)
[2018-07-22 04:00] VITALS: BP 115/63
[2018-07-22] MEDS: BLOOD SUGAR DIAGNOSTIC STRIP TEST SCH (06:02)
[2018-07-22] MEDS: INSULIN LISPRO 100 UNITS/ML SUBCUT SCH (06:27)
[2018-07-22 08:00] VITALS: BP 111/66
[2018-07-22] MEDS: METFORMIN HCL 500MG TABLET PO SCH (08:26)
[2018-07-22] MEDS: FINASTERIDE 5MG TABLET PO SCH (08:26)
[2018-07-22] MEDS: DORZOLAM/TIMOLOL 2.23/0.68% OPHTH DROPS 10ML BOTHEYE SCH (08:26)
[2018-07-22] MEDS: TAMSULOSIN HCL 0.4MG SR CAPSULE PO SCH (08:26)
[2018-07-22] MEDS: APIXABAN 5 MG TABLET PO SCH (08:26)
[2018-07-22 09:55] VITALS: BP 111/66
== END 2018-07-22 11:07 | disposition home or self-care (01) | DRG 302 ==
LOC: ER 11:33 → ENRESERV 14:39 → 8WST 16:16
PROVIDERS: ADMIT Hospitalist; ATTEND Hospitalist
DX: I25.119 Atherosclerotic heart disease of native coronary artery with unspecified angina pectoris (principal); I26.99 Other pulmonary embolism without acute cor pulmonale; D68.59 Other primary thrombophilia; E11.9 Type 2 diabetes mellitus without complications; E78.5 Hyperlipidemia, unspecified; H40.9 Unspecified glaucoma; Z82.49 Family history of ischemic heart disease and other diseases of the circulatory system; Z95.0 Presence of cardiac pacemaker; Z91.041 Radiographic dye allergy status; Z91.013 Allergy to seafood
CPT/HCPCS: 36415; 36600; 71045; 80061; 82375; 82550; 82805; 82962; 83880; 84484; 93005; 93306; 93970; 96374; 99285; J1170; J1815; J2270; J2405

== ENCOUNTER 2018-08-23 20:45 | Inpatient (IN) | payer MEDICARE, MEDICAID ==
[~2018-08-23] VITALS: Ht 172.7 cm; Wt 88.5 kg
[2018-08-23] MEDS ORDERED: ASPIRIN 81MG TABLET PO ONE (21:15)
[2018-08-23] MEDS ORDERED: NITROGLYCERIN 0.4MG TABLET SL SL PRN (21:15)
[2018-08-23 22:37] LABS: BASOPHILS % 0.5 % (0.0-2.0); HEMATOCRIT. 42.8 % (42.0-52.0); HEMOGLOBIN. 14.3 g/dL (14.0-18.0); LYMPHOCYTES % 21.4 % (20.0-50.0); MEAN CORPUSCULAR HEMOGLOBIN 29.3 pg (28.0-32.0); MEAN CORPUSCULAR VOLUME 87.9 fL (80.0-94.0); MEAN PLATELET VOLUME 10.2 fl (7.4-10.4); MONOCYTES % 8.2 % (2.0-8.0); NEUTROPHILS % 67.9 % (40.0-76.0); PLATELET 186 x1000/uL (130-400); RED BLOOD CELL COUNT 4.87 mill/uL (4.7-6.1); RED CELL DISTRIBUTION WIDTH 16.2 % (11.6-14.6)
[2018-08-23 22:42] LABS: CHLORIDE 107 mEq/L (98-107)
[2018-08-23 22:48] LABS: D-DIMER 0.4 mg/L FEU (<0.50); INR 1.1; PARTIAL THROMBOPLASTIN TIME 28.6 sec (23.4-31.0); PROTHROMBIN TIME 10.8 sec (9.6-11.0)
[2018-08-24] MEDS ORDERED: ENOXAPARIN 100MG/ML SYR SUBCUT ONE (00:15)
[2018-08-24] MEDS ORDERED: PREDNISONE 10MG TABLET PO ONE (00:45)
[2018-08-24 04:00] VITALS: BP 124/76
[2018-08-24] MEDS ORDERED: DEXTROSE 50% WATER 50ML SYRINGE IV PRN (04:30)
[2018-08-24 04:32] VITALS: BP 124/76
[2018-08-24] MEDS: MORPHINE SULFATE 2 MG/ML CPJ (NOT FOR IM USE) IV PRN ×3 (05:44→18:34)
[2018-08-24] MEDS: BLOOD SUGAR DIAGNOSTIC STRIP TEST SCH ×4 (05:44→21:13)
[2018-08-24 07:29] LABS: BASOPHILS % 0.2 % (0.0-2.0); EOSINOPHILS % 0.2 % (0.0-5.0); HEMATOCRIT. 40.4 % (42.0-52.0); HEMOGLOBIN. 13.5 g/dL (14.0-18.0); LYMPHOCYTES % 9.5 % (20.0-50.0); MEAN CORPUSCULAR HEMOGLOBIN 29.4 pg (28.0-32.0); MEAN CORPUSCULAR VOLUME 88.1 fL (80.0-94.0); MEAN PLATELET VOLUME 10.2 fl (7.4-10.4); MONOCYTES % 1.4 % (2.0-8.0); NEUTROPHILS % 88.7 % (40.0-76.0); PLATELET 163 x1000/uL (130-400); RED BLOOD CELL COUNT 4.59 mill/uL (4.7-6.1); RED CELL DISTRIBUTION WIDTH 15.8 % (11.6-14.6)
[2018-08-24 07:34] LABS: CHLORIDE 106 mEq/L (98-107)
[2018-08-24 07:53] LABS: LDL CHOLESTEROL 78 mg/dL (5-100)
[2018-08-24 07:54] LABS: HDL CHOLESTEROL 37 mg/dL (40-59)
[2018-08-24 08:00] VITALS: BP 101/60
[2018-08-24] MEDS: INSULIN LISPRO 100 UNITS/ML SUBCUT SCH ×4 (08:08→21:00)
[2018-08-24] MEDS: METFORMIN HCL 500MG TABLET PO SCH ×2 (08:09→18:09)
[2018-08-24] MEDS ORDERED: HYDROCODONE/ACETAMINOPHEN 5/325MG TABLET PO PRN (08:15)
[2018-08-24] MEDS: TAMSULOSIN HCL 0.4MG SR CAPSULE PO SCH (09:40)
[2018-08-24] MEDS: FINASTERIDE 5MG TABLET PO SCH (09:40)
[2018-08-24] MEDS: APIXABAN 5 MG TABLET PO SCH ×2 (09:40→17:32)
[2018-08-24] MEDS: BRIMONIDINE 0.2% OPHTH DROPS 5ML BOTHEYE SCH ×2 (09:41→17:32)
[2018-08-24] MEDS: TIMOLOL MALEATE 0.5% OPHTH DROPS 5ML EACHEYE SCH ×2 (09:42→17:32)
[2018-08-24 12:00] VITALS: BP 117/55
[2018-08-24 16:00] VITALS: BP 116/63
[2018-08-24 20:00] VITALS: BP 109/58
[2018-08-24] MEDS ORDERED: MEDICATION NOT ON FORMULARY EA (Travoprost (Travatan Z) 1 DROP) BOTHEYE SCH (21:00)
[2018-08-24] MEDS: ATORVASTATIN CALCIUM 10MG TABLET PO SCH (21:16)
[2018-08-24] MEDS: LATANOPROST 0.005% OPHTH DROPS 2.5ML EACHEYE SCH (21:16)
[2018-08-25 04:15] VITALS: BP 104/67
[2018-08-25] MEDS: MORPHINE SULFATE 2 MG/ML CPJ (NOT FOR IM USE) IV PRN ×3 (04:54→22:11)
[2018-08-25] MEDS: BLOOD SUGAR DIAGNOSTIC STRIP TEST SCH ×4 (06:45→21:00)
[2018-08-25 08:00] VITALS: BP 108/60
[2018-08-25] MEDS: INSULIN LISPRO 100 UNITS/ML SUBCUT SCH ×4 (08:01→21:00)
[2018-08-25] MEDS: METFORMIN HCL 500MG TABLET PO SCH ×2 (08:01→18:15)
[2018-08-25] MEDS: FINASTERIDE 5MG TABLET PO SCH (09:01)
[2018-08-25] MEDS: BRIMONIDINE 0.2% OPHTH DROPS 5ML BOTHEYE SCH ×2 (09:01→17:30)
[2018-08-25] MEDS: APIXABAN 5 MG TABLET PO SCH ×2 (09:01→17:30)
[2018-08-25] MEDS: TIMOLOL MALEATE 0.5% OPHTH DROPS 5ML EACHEYE SCH ×2 (09:01→17:30)
[2018-08-25] MEDS: TAMSULOSIN HCL 0.4MG SR CAPSULE PO SCH (09:05)
[2018-08-25 12:00] VITALS: BP 108/66
[2018-08-25] MEDS ORDERED: REGADENOSON 0.4 MG/5 ML IV NR (14:45)
[2018-08-25 16:00] VITALS: BP 110/77
[2018-08-25] MEDS ORDERED: COR3 MT (19:11)
[2018-08-25] MEDS ORDERED: DUTA0.5C15 MT (19:11)
[2018-08-25] MEDS ORDERED: AMLO5TAB88 MT (19:11)
[2018-08-25 20:00] VITALS: BP 102/61
[2018-08-25] MEDS: LATANOPROST 0.005% OPHTH DROPS 2.5ML EACHEYE SCH (22:11)
[2018-08-25] MEDS: ATORVASTATIN CALCIUM 10MG TABLET PO SCH (22:11)
[2018-08-26] VITALS: BP 111/58
[2018-08-26 00:28] VITALS: BP 111/58
[2018-08-26 07:18] LABS: CHLORIDE 109 mEq/L (98-107)
[2018-08-26 08:00] VITALS: BP 105/56
[2018-08-26] MEDS: INSULIN LISPRO 100 UNITS/ML SUBCUT SCH (08:10)
[2018-08-26] MEDS: METFORMIN HCL 500MG TABLET PO SCH (08:10)
[2018-08-26] MEDS: BLOOD SUGAR DIAGNOSTIC STRIP TEST SCH (08:31)
[2018-08-26] MEDS: APIXABAN 5 MG TABLET PO SCH (08:52)
[2018-08-26] MEDS: BRIMONIDINE 0.2% OPHTH DROPS 5ML BOTHEYE SCH (08:52)
[2018-08-26] MEDS: FINASTERIDE 5MG TABLET PO SCH (08:52)
[2018-08-26] MEDS: TAMSULOSIN HCL 0.4MG SR CAPSULE PO SCH (08:53)
[2018-08-26] MEDS: TIMOLOL MALEATE 0.5% OPHTH DROPS 5ML EACHEYE SCH (08:53)
[2018-08-26] MEDS: MORPHINE SULFATE 2 MG/ML CPJ (NOT FOR IM USE) IV PRN (09:52)
[2018-08-26 10:32] VITALS: BP 113/70
[2018-08-31] MEDS ORDERED: METF-414 PO (21:48)
[2018-09-02] MEDS ORDERED: METO25TA6 PO (09:20)
[2018-09-02] MEDS ORDERED: TAMS-11 PO (20:46)
[2018-09-02] MEDS ORDERED: FINA5TAB3 PO (20:47)
== END 2018-08-26 12:35 | disposition home or self-care (01) | DRG 206 ==
LOC: ER 22:24 → 7WST 08-24 00:17 → EDBEDREQ 08-24 00:21 → EDBEDREQTM 08-24 00:21 → EDBEDREQDT 08-24 00:21 → ENRESERV 08-24 01:39
PROVIDERS: ADMIT Internal Medicine; ATTEND Internal Medicine
DX: M94.0 Chondrocostal junction syndrome [Tietze] (principal); Z95.0 Presence of cardiac pacemaker; E78.5 Hyperlipidemia, unspecified; E11.39 Type 2 diabetes mellitus with other diabetic ophthalmic complication; H40.9 Unspecified glaucoma; H42 Glaucoma in diseases classified elsewhere; I10 Essential (primary) hypertension; I48.0 Paroxysmal atrial fibrillation; N40.0 Benign prostatic hyperplasia without lower urinary tract symptoms; Z79.01 Long term (current) use of anticoagulants; Z82.49 Family history of ischemic heart disease and other diseases of the circulatory system; Z91.041 Radiographic dye allergy status; Z88.6 Allergy status to analgesic agent; Z91.013 Allergy to seafood; Z91.018 Allergy to other foods; Z79.899 Other long term (current) drug therapy; Z86.711 Personal history of pulmonary embolism
CPT/HCPCS: 36415; 71045; 80048; 80061; 82962; 83880; 84484; 85379; 93005; 93970; 99285; J1650; J1815; J2270; J7512

== ENCOUNTER 2018-09-06 17:07 | Inpatient (IN) | payer MEDICARE, MEDICAID ==
[~2018-09-06] VITALS: Ht 172.7 cm; Wt 88.9 kg
[~2018-09-06 17:07] MED LIST changes: -ATOR10TA69 PO; +DUTA0.5C15 MT; -FINA5TAB11 PO; +FINA5TAB3 PO; +METO25TA6 PO; +TAMS-11 PO; -TAMS0.4C31 PO
[2018-09-06] MEDS ORDERED: ONDANSETRON HCL 4MG/2ML INJ IV STA (19:38)
[2018-09-06] MEDS ORDERED: MORPHINE SULFATE 4 MG/ML CPJ (NOT FOR IM USE) IV STA (19:38)
[2018-09-06] MEDS ORDERED: ASPIRIN 81MG TABLET PO ONE (19:45)
[2018-09-06 20:42] LABS: BASOPHILS % 0.6 % (0.0-2.0); EOSINOPHILS % 3.3 % (0.0-5.0); HEMATOCRIT. 39.3 % (42.0-52.0); HEMOGLOBIN. 13.1 g/dL (14.0-18.0); LYMPHOCYTES % 19.6 % (20.0-50.0); MEAN CORPUSCULAR HEMOGLOBIN 29.4 pg (28.0-32.0); MEAN CORPUSCULAR VOLUME 88.5 fL (80.0-94.0); MONOCYTES % 9.4 % (2.0-8.0); NEUTROPHILS % 67.1 % (40.0-76.0); PLATELET 159 x1000/uL (130-400); RED BLOOD CELL COUNT 4.45 mill/uL (4.7-6.1); RED CELL DISTRIBUTION WIDTH 15.8 % (11.6-14.6)
[2018-09-06 20:44] LABS: CHLORIDE 108 mEq/L (98-107)
[2018-09-06 20:48] LABS: D-DIMER 0.39 mg/L FEU (<0.50); ETHANOL BLOOD < 10 mg/dL; PARTIAL THROMBOPLASTIN TIME 27.9 sec (23.4-31.0); PROTHROMBIN TIME 10.1 sec (9.6-11.0)
[2018-09-06] MEDS ORDERED: MORPHINE SULFATE 10 MG/ML CPJ IV ONE (21:00)
[2018-09-06] MEDS ORDERED: ONDANSETRON 4MG ODT PO ONE (21:00)
[2018-09-06 21:44] LABS: *AMPHETAMINES SCREEN URINE NEGATIVE (NEGATIVE); *BARBITURATES SCREEN URINE NEGATIVE (NEGATIVE); *BENZODIAZEPINES SCREEN URINE NEGATIVE (NEGATIVE); *COCAINE SCREEN URINE NEGATIVE (NEGATIVE); METHADONE URINE SCREEN NEGATIVE (NEGATIVE); OPIATES URINE SCREEN NEGATIVE (NEGATIVE)
[2018-09-06 21:45] LABS: CANNABINOID URINE SCREEN NEGATIVE (NEGATIVE); PHENCYCLIDINE URINE SCREEN NEGATIVE (NEGATIVE)
[2018-09-06] MEDS ORDERED: HYDROMORPHONE HCL/PF 2MG/ML CPJ IV PRN (22:30)
[2018-09-06] MEDS ORDERED: ONDANSETRON HCL 4MG/2ML INJ IV PRN (22:30)
[2018-09-06] MEDS ORDERED: HYDROCODONE/ACETAMINOPHEN 5/325MG TABLET PO PRN (22:30)
[2018-09-06 22:35] VITALS: BP 165/85
[2018-09-07] VITALS: BP 165/85
[2018-09-07] MEDS ORDERED: APIX5TAB4 PO (02:11)
[2018-09-07] MEDS ORDERED: TAMS-11 PO (02:11)
[2018-09-07] MEDS ORDERED: METF500S7 PO (02:11)
[2018-09-07] MEDS ORDERED: ATOR10TA PO (02:11)
[2018-09-07] MEDS ORDERED: FINA5TAB3 PO (02:11)
[2018-09-07] MEDS ORDERED: DORZ10DR12 OP (02:11)
[2018-09-07 07:33] LABS: CHLORIDE 109 mEq/L (98-107)
[2018-09-07 07:41] LABS: HDL CHOLESTEROL 34 mg/dL (40-59); LDL CHOLESTEROL 96 mg/dL (5-100)
[2018-09-07 07:43] LABS: BASOPHILS % 0.8 % (0.0-2.0); EOSINOPHILS % 3.8 % (0.0-5.0); HEMATOCRIT. 37.9 % (42.0-52.0); HEMOGLOBIN. 12.4 g/dL (14.0-18.0); LYMPHOCYTES % 21.4 % (20.0-50.0); MEAN CORPUSCULAR HEMOGLOBIN 29.1 pg (28.0-32.0); MEAN CORPUSCULAR VOLUME 88.8 fL (80.0-94.0); MEAN PLATELET VOLUME 10.3 fl (7.4-10.4); MONOCYTES % 9.8 % (2.0-8.0); NEUTROPHILS % 64.2 % (40.0-76.0); PLATELET 144 x1000/uL (130-400); RED BLOOD CELL COUNT 4.27 mill/uL (4.7-6.1); RED CELL DISTRIBUTION WIDTH 15.5 % (11.6-14.6)
[2018-09-07] MEDS: AMLODIPINE 10MG TABLET PO SCH ×2 (08:10→08:16)
[2018-09-07] MEDS: APIXABAN 5 MG TABLET PO SCH ×2 (08:10→16:51)
[2018-09-07 08:13] VITALS: BP 101/66
[2018-09-07 11:50] VITALS: BP 129/74
[2018-09-07] MEDS: TAMSULOSIN HCL 0.4MG SR CAPSULE PO SCH (11:50)
[2018-09-07] MEDS: ACETAMINOPHEN 325MG TABLET PO PRN (11:51)
[2018-09-07] MEDS: FINASTERIDE 5MG TABLET PO SCH (15:06)
[2018-09-07] MEDS: METFORMIN HCL 500MG TABLET PO SCH (16:51)
[2018-09-07 20:00] VITALS: BP 115/65
[2018-09-07] MEDS: PREDNISONE 20MG TABLET PO SCH ×3 (20:00→21:12)
[2018-09-07] MEDS: TIMOLOL MALEATE 0.5% OPHTH DROPS 5ML EACHEYE SCH (21:06)
[2018-09-07] MEDS: BRIMONIDINE 0.2% OPHTH DROPS 5ML BOTHEYE SCH (21:06)
[2018-09-07] MEDS: METOPROLOL TARTRATE 25MG TABLET PO SCH ×2 (21:06→21:08)
[2018-09-07] MEDS ORDERED: METHYLPREDNISOLONE SOD SUCC 40 MG/ML VIAL IV NR (23:30)
[2018-09-08] VITALS: BP 107/56
[2018-09-08] MEDS ORDERED: PREDNISONE 20MG TABLET PO SCH ×2 (02:00→08:00)
[2018-09-08] MEDS: ACETAMINOPHEN 325MG TABLET PO PRN (03:08)
[2018-09-08 04:00] VITALS: BP 134/68
[2018-09-08] MEDS: METFORMIN HCL 500MG TABLET PO SCH (06:20)
[2018-09-08 08:00] VITALS: BP 120/70
[2018-09-08] MEDS ORDERED: DIPHENHYDRAMINE 50MG/ML VIAL IV SCH (08:00)
[2018-09-08] MEDS: TAMSULOSIN HCL 0.4MG SR CAPSULE PO SCH (08:17)
[2018-09-08] MEDS: AMLODIPINE 10MG TABLET PO SCH (08:17)
[2018-09-08] MEDS: APIXABAN 5 MG TABLET PO SCH (08:17)
[2018-09-08] MEDS: FINASTERIDE 5MG TABLET PO SCH (08:17)
[2018-09-08] MEDS: BRIMONIDINE 0.2% OPHTH DROPS 5ML BOTHEYE SCH (08:18)
[2018-09-08] MEDS: TIMOLOL MALEATE 0.5% OPHTH DROPS 5ML EACHEYE SCH (08:18)
[2018-09-08 10:51] VITALS: BP 120/70
== END 2018-09-08 13:06 | disposition home or self-care (01) | DRG 205 ==
LOC: ER 17:07 → 8WST 21:30 → EDBEDREQ 21:35 → EDBEDREQTM 21:35 → ENRESERV 22:13
PROVIDERS: ADMIT Hospitalist; ATTEND Hospitalist
PROC: 02HV33Z Insertion of Infusion Device into Superior Vena Cava, Percutaneous Approach (ICD-10-PCS; principal; 2018-09-07)
PROC: B5181ZA Fluoroscopy of Superior Vena Cava using Low Osmolar Contrast, Guidance (ICD-10-PCS; 2018-09-07)
PROC: B548ZZA Ultrasonography of Superior Vena Cava, Guidance (ICD-10-PCS; 2018-09-07)
DX: M94.0 Chondrocostal junction syndrome [Tietze] (principal); J96.00 Acute respiratory failure, unspecified whether with hypoxia or hypercapnia; D68.59 Other primary thrombophilia; E78.5 Hyperlipidemia, unspecified; I25.10 Atherosclerotic heart disease of native coronary artery without angina pectoris; H40.9 Unspecified glaucoma; N40.0 Benign prostatic hyperplasia without lower urinary tract symptoms; E11.9 Type 2 diabetes mellitus without complications; G89.4 Chronic pain syndrome; I10 Essential (primary) hypertension; Z76.5 Malingerer [conscious simulation]; Z79.01 Long term (current) use of anticoagulants; Z82.49 Family history of ischemic heart disease and other diseases of the circulatory system; Z83.3 Family history of diabetes mellitus; Z91.19 Patient's noncompliance with other medical treatment and regimen; Z95.0 Presence of cardiac pacemaker; Z88.8 Allergy status to other drugs, medicaments and biological substances; Z91.041 Radiographic dye allergy status; Z91.013 Allergy to seafood; Z79.84 Long term (current) use of oral hypoglycemic drugs; Z79.899 Other long term (current) drug therapy; Z91.018 Allergy to other foods; Z86.711 Personal history of pulmonary embolism
CPT/HCPCS: 36415; 36573; 71045; 80061; 80305; 80320; 82962; 83880; 84484; 85379; 93005; 96374; 99285; C1725; C1893; J1200; J2270; J2920; J7512; Q0162; G0480

== ENCOUNTER 2018-09-21 17:19 | Inpatient (IN) | payer MEDICARE, MEDICAID ==
[~2018-09-21] VITALS: Ht 172.7 cm; Wt 88.5 kg
[~2018-09-21 17:19] MED LIST changes: +APIX5TAB4 PO; +ATOR10TA PO; +DORZ10DR12 OP; +METF500S7 PO
[2018-09-21] MEDS ORDERED: ONDANSETRON HCL 4MG/2ML INJ IV STA (20:16)
[2018-09-21] MEDS ORDERED: MORPHINE SULFATE 4 MG/ML CPJ (NOT FOR IM USE) IV STA (20:16)
[2018-09-21] MEDS ORDERED: DIPHENHYDRAMINE 50MG/ML VIAL IV ONE (20:30)
[2018-09-21 20:43] LABS: BASOPHILS % 0.5 % (0.0-2.0); CHLORIDE 108 mEq/L (98-107); EOSINOPHILS % 2.3 % (0.0-5.0); HEMATOCRIT. 41.8 % (42.0-52.0); HEMOGLOBIN. 13.7 g/dL (14.0-18.0); LYMPHOCYTES % 18.8 % (20.0-50.0); MEAN CORPUSCULAR HEMOGLOBIN 29.2 pg (28.0-32.0); MEAN CORPUSCULAR VOLUME 88.8 fL (80.0-94.0); MONOCYTES % 9.9 % (2.0-8.0); NEUTROPHILS % 68.5 % (40.0-76.0); PLATELET 148 x1000/uL (130-400); RED CELL DISTRIBUTION WIDTH 16.1 % (11.6-14.6)
[2018-09-21 20:47] LABS: ETHANOL BLOOD < 10 mg/dL
[2018-09-21 21:37] LABS: *BARBITURATES SCREEN URINE NEGATIVE (NEGATIVE)
[2018-09-21 21:38] LABS: *AMPHETAMINES SCREEN URINE NEGATIVE (NEGATIVE); *BENZODIAZEPINES SCREEN URINE NEGATIVE (NEGATIVE); *COCAINE SCREEN URINE NEGATIVE (NEGATIVE); CANNABINOID URINE SCREEN NEGATIVE (NEGATIVE); METHADONE URINE SCREEN NEGATIVE (NEGATIVE); OPIATES URINE SCREEN NEGATIVE (NEGATIVE); PHENCYCLIDINE URINE SCREEN NEGATIVE (NEGATIVE)
[2018-09-21] MEDS ORDERED: IPRATROPIUM/ALBUTEROL 0.5-3(2.5)MG/3ML NEB INH PRN (22:00)
[2018-09-21] MEDS ORDERED: TRAMADOL 50MG TABLET PO PRN (22:00)
[2018-09-21] MEDS ORDERED: DIPHENHYDRAMINE 50MG/ML VIAL IV PRN (22:00)
[2018-09-21] MEDS ORDERED: ACETAMINOPHEN 325MG TABLET PO PRN (22:00)
[2018-09-21] MEDS ORDERED: DOCUSATE SODIUM 100MG CAPSULE PO PRN (22:00)
[2018-09-21] MEDS ORDERED: NITROGLYCERIN 0.4MG TABLET SL SL PRN (22:00)
[2018-09-21] MEDS ORDERED: MAGNESIUM/ALUMINUM HYDROXIDE/SIMETHICONE 30ML UDC PO PRN (22:00)
[2018-09-21] MEDS ORDERED: CLONIDINE 0.1MG TABLET PO PRN (22:00)
[2018-09-21] MEDS ORDERED: LORAZEPAM 0.5MG TABLET PO PRN (22:00)
[2018-09-21] MEDS ORDERED: DEXTROSE 50% WATER 50ML SYRINGE IV PRN (22:00)
[2018-09-21] MEDS ORDERED: ZOLPIDEM TARTRATE 5MG TABLET PO PRN (22:00)
[2018-09-21] MEDS ORDERED: GUAIFENESIN 200MG/10ML SUGAR FREE UDC PO PRN (22:00)
[2018-09-21] MEDS ORDERED: ONDANSETRON HCL 4MG/2ML INJ IV PRN (22:00)
[2018-09-22] VITALS: BP 123/84
[2018-09-22 00:37] VITALS: BP 123/84
[2018-09-22 00:43] LABS: CREATINE KINASE 94 IU/L (39-308)
[2018-09-22 00:44] LABS: CREATINE KINASE MB FRACTION 1.6 ng/mL (0.5-3.6)
[2018-09-22] MEDS: KETOROLAC 15MG/ML VIAL IV PRN ×2 (04:02→18:43)
[2018-09-22] MEDS: BLOOD SUGAR DIAGNOSTIC STRIP TEST SCH ×4 (07:16→21:00)
[2018-09-22] MEDS: INSULIN LISPRO 100 UNITS/ML SUBCUT SCH ×4 (07:17→21:00)
[2018-09-22 08:00] VITALS: BP 100/46
[2018-09-22] MEDS: METOPROLOL TARTRATE 25MG TABLET PO SCH ×2 (09:00→21:54)
[2018-09-22] MEDS: FAMOTIDINE 20MG TABLET PO SCH ×2 (09:44→21:55)
[2018-09-22] MEDS: ASPIRIN 325MG EC TABLET PO SCH (09:44)
[2018-09-22] MEDS: TAMSULOSIN HCL 0.4MG SR CAPSULE PO SCH (09:45)
[2018-09-22] MEDS: APIXABAN 5 MG TABLET PO SCH ×2 (09:45→21:54)
[2018-09-22 12:00] VITALS: BP 110/54
[2018-09-22 12:17] LABS: CREATINE KINASE 79 IU/L (39-308)
[2018-09-22 12:19] LABS: CREATINE KINASE MB FRACTION 1.2 ng/mL (0.5-3.6)
[2018-09-22 16:00] VITALS: BP 106/52
[2018-09-22 20:00] VITALS: BP 125/72
[2018-09-22] MEDS: ATORVASTATIN CALCIUM 10MG TABLET PO SCH (21:54)
[2018-09-23] VITALS: BP 115/67
[2018-09-23] MEDS: INSULIN LISPRO 100 UNITS/ML SUBCUT SCH ×4 (05:44→20:44)
[2018-09-23] MEDS: BLOOD SUGAR DIAGNOSTIC STRIP TEST SCH ×4 (05:44→20:43)
[2018-09-23 08:00] VITALS: BP 127/72
[2018-09-23] MEDS: FAMOTIDINE 20MG TABLET PO SCH ×2 (09:27→20:37)
[2018-09-23] MEDS: ASPIRIN 325MG EC TABLET PO SCH (09:27)
[2018-09-23] MEDS: TAMSULOSIN HCL 0.4MG SR CAPSULE PO SCH (09:27)
[2018-09-23] MEDS: APIXABAN 5 MG TABLET PO SCH ×2 (09:27→20:37)
[2018-09-23] MEDS: METOPROLOL TARTRATE 25MG TABLET PO SCH ×3 (09:28→21:00)
[2018-09-23 12:00] VITALS: BP 106/60
[2018-09-23] MEDS: KETOROLAC 15MG/ML VIAL IV PRN ×2 (14:45→14:51)
[2018-09-23 16:00] VITALS: BP 118/62
[2018-09-23 20:00] VITALS: BP 121/64
[2018-09-23] MEDS: ATORVASTATIN CALCIUM 10MG TABLET PO SCH (20:37)
[2018-09-24] VITALS: BP 104/52
[2018-09-24] MEDS: KETOROLAC 15MG/ML VIAL IV PRN (03:37)
[2018-09-24 04:00] VITALS: BP 110/55
[2018-09-24] MEDS: BLOOD SUGAR DIAGNOSTIC STRIP TEST SCH ×2 (07:10→12:39)
[2018-09-24] MEDS: INSULIN LISPRO 100 UNITS/ML SUBCUT SCH ×2 (07:34→12:40)
[2018-09-24 08:00] VITALS: BP 129/53
[2018-09-24] MEDS: METOPROLOL TARTRATE 25MG TABLET PO SCH (09:02)
[2018-09-24] MEDS: TAMSULOSIN HCL 0.4MG SR CAPSULE PO SCH (09:02)
[2018-09-24] MEDS: FAMOTIDINE 20MG TABLET PO SCH (09:03)
[2018-09-24] MEDS: ASPIRIN 325MG EC TABLET PO SCH (09:03)
[2018-09-24] MEDS: APIXABAN 5 MG TABLET PO SCH (09:03)
[2018-09-24 10:00] VITALS: BP 124/51
[2018-09-24 12:22] VITALS: BP 125/50
== END 2018-09-24 12:30 | disposition home or self-care (01) | DRG 206 ==
LOC: ER 18:12 → 8WST 21:46 → SUPCPDRO 21:57 → ENRESERV 22:09 → CANBEDREQ 09-22 21:02
PROVIDERS: ADMIT Internal Medicine; ATTEND Internal Medicine
DX: M94.0 Chondrocostal junction syndrome [Tietze] (principal); E11.9 Type 2 diabetes mellitus without complications; E78.00 Pure hypercholesterolemia, unspecified; I10 Essential (primary) hypertension; D63.8 Anemia in other chronic diseases classified elsewhere; I25.10 Atherosclerotic heart disease of native coronary artery without angina pectoris; R74.0 Nonspecific elevation of levels of transaminase and lactic acid dehydrogenase [LDH]; Z82.49 Family history of ischemic heart disease and other diseases of the circulatory system; Z86.711 Personal history of pulmonary embolism; Z95.810 Presence of automatic (implantable) cardiac defibrillator; Z79.4 Long term (current) use of insulin; Z79.899 Other long term (current) drug therapy; Z91.041 Radiographic dye allergy status; Z91.013 Allergy to seafood; Z88.8 Allergy status to other drugs, medicaments and biological substances; Z79.84 Long term (current) use of oral hypoglycemic drugs
CPT/HCPCS: 36415; 71045; 80061; 80305; 80320; 82550; 82553; 82962; 83036; 83880; 84484; 85379; 93005; 93970; 96374; 99285; J1200; J1815; J1885; J2270; J2405; G0480

== ENCOUNTER 2018-10-01 19:14 | Inpatient (IN) | payer MEDICARE, MEDICAID ==
[~2018-10-01] VITALS: Ht 167.6 cm; Wt 83.9 kg
[~2018-10-01 19:14] MED LIST changes: -APIX5TAB4 PO; -DORZ10DR12 OP; -DUTA0.5C15 MT; -METF500S7 PO; -METO25TA6 PO
[2018-10-01] MEDS ORDERED: MORPHINE SULFATE 4 MG/ML CPJ (NOT FOR IM USE) IV STA (19:57)
[2018-10-01 20:38] LABS: BASOPHILS % 0.8 % (0.0-2.0); EOSINOPHILS % 2.4 % (0.0-5.0); HEMATOCRIT. 41.4 % (42.0-52.0); HEMOGLOBIN. 13.7 g/dL (14.0-18.0); LYMPHOCYTES % 23.7 % (20.0-50.0); MEAN CORPUSCULAR HEMOGLOBIN 29.6 pg (28.0-32.0); MEAN CORPUSCULAR VOLUME 89.5 fL (80.0-94.0); MEAN PLATELET VOLUME 10.1 fl (7.4-10.4); MONOCYTES % 7.8 % (2.0-8.0); NEUTROPHILS % 65.3 % (40.0-76.0); PLATELET 173 x1000/uL (130-400); RED BLOOD CELL COUNT 4.63 mill/uL (4.7-6.1); RED CELL DISTRIBUTION WIDTH 15.6 % (11.6-14.6)
[2018-10-01 20:42] LABS: CHLORIDE 110 mEq/L (98-107)
[2018-10-01] MEDS ORDERED: ONDANSETRON HCL 4MG/2ML INJ IV ONE (20:45)
[2018-10-01] MEDS ORDERED: ONDANSETRON HCL 4MG/2ML INJ IV PRN (22:15)
[2018-10-01] MEDS ORDERED: CLONIDINE 0.1MG TABLET PO PRN (22:15)
[2018-10-01] MEDS ORDERED: ENOXAPARIN 40MG/0.4ML SYR SUBCUT SCH (22:15)
[2018-10-01] MEDS ORDERED: LORAZEPAM 0.5MG TABLET PO PRN (22:15)
[2018-10-01] MEDS ORDERED: IPRATROPIUM/ALBUTEROL 0.5-3(2.5)MG/3ML NEB INH PRN (22:15)
[2018-10-01] MEDS ORDERED: GUAIFENESIN 200MG/10ML SUGAR FREE UDC PO PRN (22:15)
[2018-10-01] MEDS ORDERED: NITROGLYCERIN 0.4MG TABLET SL SL PRN (22:15)
[2018-10-01] MEDS ORDERED: ACETAMINOPHEN 325MG TABLET PO PRN (22:15)
[2018-10-01] MEDS ORDERED: ZOLPIDEM TARTRATE 5MG TABLET PO PRN (22:15)
[2018-10-01] MEDS ORDERED: DOCUSATE SODIUM 100MG CAPSULE PO PRN (22:15)
[2018-10-01] MEDS ORDERED: DEXTROSE 50% WATER 50ML SYRINGE IV PRN (22:15)
[2018-10-01] MEDS ORDERED: MAGNESIUM/ALUMINUM HYDROXIDE/SIMETHICONE 30ML UDC PO PRN (22:15)
[2018-10-01] MEDS ORDERED: TRAMADOL 50MG TABLET PO PRN (22:29)
[2018-10-01] MEDS ORDERED: KETOROLAC 15MG/ML VIAL IV PRN (22:29)
[2018-10-02 02:00] VITALS: BP 129/68
[2018-10-02 02:09] VITALS: BP 129/68
[2018-10-02] MEDS ORDERED: APIXABAN 5 MG TABLET PO SCH (06:00)
[2018-10-02] MEDS: INSULIN LISPRO 100 UNITS/ML SUBCUT SCH ×3 (06:05→16:49)
[2018-10-02] MEDS: BLOOD SUGAR DIAGNOSTIC STRIP TEST SCH ×3 (06:06→16:49)
[2018-10-02 08:00] VITALS: BP 100/57
[2018-10-02] MEDS ORDERED: ASPIRIN 325MG EC TABLET PO SCH (09:00)
[2018-10-02] MEDS ORDERED: FAMOTIDINE 20MG TABLET PO SCH (09:00)
[2018-10-02 09:54] LABS: CREATINE KINASE 71 IU/L (39-308)
[2018-10-02 09:55] LABS: CREATINE KINASE MB FRACTION 1.3 ng/mL (0.5-3.6)
[2018-10-02 10:24] VITALS: BP 100/57
[2018-10-02 12:00] VITALS: BP_SYST 138; BP_DIAS 81; BP_DIAS 85
[2018-10-02 16:39] LABS: CREATINE KINASE 74 IU/L (39-308)
[2018-10-02 16:40] LABS: CREATINE KINASE MB FRACTION 1.3 ng/mL (0.5-3.6)
[2018-10-02] MEDS ORDERED: ATORVASTATIN CALCIUM 10MG TABLET PO SCH (21:00)
== END 2018-10-02 17:52 | disposition home or self-care (01) | DRG 313 ==
LOC: ER 21:54 → 5WST 21:57 → EDBEDREQ 22:06 → EDBEDREQTM 22:06 → ENRESERV 10-02 01:01
PROVIDERS: ADMIT Internal Medicine; ATTEND Internal Medicine
DX: R07.9 Chest pain, unspecified (principal); I42.9 Cardiomyopathy, unspecified; Z76.5 Malingerer [conscious simulation]; E11.9 Type 2 diabetes mellitus without complications; E78.00 Pure hypercholesterolemia, unspecified; D63.8 Anemia in other chronic diseases classified elsewhere; I50.9 Heart failure, unspecified; I11.0 Hypertensive heart disease with heart failure; I25.2 Old myocardial infarction; Z82.49 Family history of ischemic heart disease and other diseases of the circulatory system; Z86.711 Personal history of pulmonary embolism; Z91.041 Radiographic dye allergy status; Z91.013 Allergy to seafood; Z88.8 Allergy status to other drugs, medicaments and biological substances; Z79.899 Other long term (current) drug therapy; Z95.810 Presence of automatic (implantable) cardiac defibrillator; Z79.84 Long term (current) use of oral hypoglycemic drugs
CPT/HCPCS: 36415; 71045; 82550; 82553; 82962; 83880; 84484; 93005; 96374; 96375; 99285; J1815; J2270; J2405

== ENCOUNTER 2018-10-16 12:08 | Emergency (ER) | payer MEDICARE, MEDICAID ==
[~2018-10-16] VITALS: Ht 172.7 cm; Wt 88.0 kg
[2018-10-16 14:44] LABS: BASOPHILS % 0.3 % (0.0-2.0); EOSINOPHILS % 2.7 % (0.0-5.0); HEMATOCRIT. 39.2 % (42.0-52.0); HEMOGLOBIN. 13.2 g/dL (14.0-18.0); LYMPHOCYTES % 16.2 % (20.0-50.0); MEAN CORPUSCULAR HEMOGLOBIN 29.6 pg (28.0-32.0); MEAN CORPUSCULAR VOLUME 87.9 fL (80.0-94.0); MONOCYTES % 8.5 % (2.0-8.0); NEUTROPHILS % 72.3 % (40.0-76.0); PLATELET 143 x1000/uL (130-400); RED BLOOD CELL COUNT 4.46 mill/uL (4.7-6.1); RED CELL DISTRIBUTION WIDTH 15.2 % (11.6-14.6)
[2018-10-16 14:53] LABS: CHLORIDE 112 mEq/L (98-107)
[2018-10-16 15:48] VITALS: BP 109/60
[2018-10-16] MEDS ORDERED: KETOROLAC 15MG/ML VIAL IM ONE (16:00)
== END 2018-10-16 15:45 | disposition home or self-care (01) ==
LOC: ER 12:08
DX: R07.89 Other chest pain (principal); D64.9 Anemia, unspecified; E87.6 Hypokalemia; E11.9 Type 2 diabetes mellitus without complications; E78.00 Pure hypercholesterolemia, unspecified; H40.9 Unspecified glaucoma; Z95.0 Presence of cardiac pacemaker; Z79.899 Other long term (current) drug therapy; Z91.013 Allergy to seafood; Z91.041 Radiographic dye allergy status; Z88.5 Allergy status to narcotic agent
CPT/HCPCS: 36415; 71045; 83880; 84484; 93005; 99284

== ENCOUNTER 2018-10-21 21:46 | Emergency (ER) | payer MEDICARE, MEDICAID ==
[~2018-10-21] VITALS: Ht 172.7 cm; Wt 89.0 kg
[2018-10-21] MEDS ORDERED: ONDANSETRON HCL 4MG/2ML INJ IV STA (22:24)
[2018-10-21] MEDS ORDERED: MORPHINE SULFATE 4 MG/ML CPJ (NOT FOR IM USE) IV STA (22:24)
[2018-10-21] MEDS ORDERED: ASPIRIN 81MG TABLET PO ONE (22:30)
[2018-10-21] MEDS ORDERED: NITROGLYCERIN 0.4MG TABLET SL SL PRN (22:30)
[2018-10-21 23:04] LABS: BASOPHILS % 0.6 % (0.0-2.0); EOSINOPHILS % 2.9 % (0.0-5.0); HEMATOCRIT. 39.4 % (42.0-52.0); HEMOGLOBIN. 13.1 g/dL (14.0-18.0); LYMPHOCYTES % 19.3 % (20.0-50.0); MEAN CORPUSCULAR HEMOGLOBIN 29.2 pg (28.0-32.0); MEAN CORPUSCULAR VOLUME 88.1 fL (80.0-94.0); MEAN PLATELET VOLUME 9.7 fl (7.4-10.4); MONOCYTES % 12.1 % (2.0-8.0); NEUTROPHILS % 65.1 % (40.0-76.0); PLATELET 172 x1000/uL (130-400); RED BLOOD CELL COUNT 4.47 mill/uL (4.7-6.1); RED CELL DISTRIBUTION WIDTH 15.5 % (11.6-14.6)
[2018-10-21 23:06] LABS: CHLORIDE 110 mEq/L (98-107)
[2018-10-22] MEDS ORDERED: ENOXAPARIN 100MG/ML SYR SUBCUT SCH (03:00)
[2018-10-22 03:20] VITALS: BP 138/46
== END 2018-10-22 03:21 | disposition home or self-care (01) ==
LOC: ER 21:46 → CANBEDREQ 10-22 06:18
DX: G89.29 Other chronic pain (principal); R07.89 Other chest pain; Z76.5 Malingerer [conscious simulation]; I49.9 Cardiac arrhythmia, unspecified; E11.9 Type 2 diabetes mellitus without complications; E78.00 Pure hypercholesterolemia, unspecified; Z95.0 Presence of cardiac pacemaker; Z88.5 Allergy status to narcotic agent; Z91.041 Radiographic dye allergy status; Z91.013 Allergy to seafood; Z79.84 Long term (current) use of oral hypoglycemic drugs; Z79.899 Other long term (current) drug therapy
CPT/HCPCS: 36415; 71045; 80053; 83690; 83880; 84484; 85025; 93005; 96374; 96375; 99284; J2270; J2405

== ENCOUNTER 2018-11-27 20:42 | Emergency (ER) | payer MEDICARE, MEDICAID ==
[~2018-11-27] VITALS: Ht 172.7 cm; Wt 89.0 kg
[2018-11-27 20:58] VITALS: BP 99/66
== END 2018-11-28 06:13 | disposition home or self-care (01) ==
LOC: ER 20:42
DX: R07.89 Other chest pain (principal); Z76.5 Malingerer [conscious simulation]; F91.8 Other conduct disorders; E11.9 Type 2 diabetes mellitus without complications; I51.9 Heart disease, unspecified; E78.00 Pure hypercholesterolemia, unspecified; Z95.0 Presence of cardiac pacemaker; Z86.711 Personal history of pulmonary embolism; Z79.01 Long term (current) use of anticoagulants; Z79.4 Long term (current) use of insulin; Z79.899 Other long term (current) drug therapy
CPT/HCPCS: 93005; 99283

== ENCOUNTER 2018-12-28 21:34 | Emergency (ER) | payer MEDICARE, MEDICAID ==
[~2018-12-28] VITALS: Ht 172.7 cm; Wt 89.0 kg
[2018-12-28] MEDS ORDERED: ASPIRIN 81MG TABLET PO ONE (23:30)
[2018-12-28] MEDS ORDERED: NITROGLYCERIN 0.4MG TABLET SL SL PRN (23:30)
[2018-12-28 23:56] LABS: BASOPHILS % 0.6 % (0.0-2.0); EOSINOPHILS % 2.6 % (0.0-5.0); HEMATOCRIT. 42.3 % (42.0-52.0); HEMOGLOBIN. 13.9 g/dL (14.0-18.0); LYMPHOCYTES % 20.4 % (20.0-50.0); MEAN CORPUSCULAR HEMOGLOBIN 28.6 pg (28.0-32.0); MEAN CORPUSCULAR VOLUME 86.9 fL (80.0-94.0); MEAN PLATELET VOLUME 9.7 fl (7.4-10.4); MONOCYTES % 8.2 % (2.0-8.0); NEUTROPHILS % 68.2 % (40.0-76.0); PLATELET 191 x1000/uL (130-400); RED BLOOD CELL COUNT 4.87 mill/uL (4.7-6.1)
[2018-12-28 23:59] LABS: CHLORIDE 110 mEq/L (98-107)
[2018-12-29 09:20] VITALS: BP 112/77
[2018-12-29 09:24] LABS: CREATINE KINASE 83 IU/L (39-308)
[2018-12-29 09:25] LABS: CREATINE KINASE MB FRACTION 1.3 ng/mL (0.5-3.6)
== END 2018-12-29 09:56 | disposition home or self-care (01) ==
LOC: ER 21:34 → EDBEDREQ 12-29 00:55 → EDBEDREQTM 12-29 00:55 → EDBEDREQDT 12-29 00:55 → CANBEDREQ 12-29 08:05 → ER 12-29 09:56
DX: R07.89 Other chest pain (principal); R06.02 Shortness of breath; R00.2 Palpitations; E78.00 Pure hypercholesterolemia, unspecified; E11.9 Type 2 diabetes mellitus without complications; I51.9 Heart disease, unspecified; H40.9 Unspecified glaucoma; I25.2 Old myocardial infarction; Z98.890 Other specified postprocedural states; Z88.5 Allergy status to narcotic agent; Z91.041 Radiographic dye allergy status; Z91.013 Allergy to seafood; Z79.899 Other long term (current) drug therapy
CPT/HCPCS: 36415; 71045; 82550; 82553; 83880; 84484; 93005; 99284

== ENCOUNTER 2019-02-25 01:50 | Emergency (ER) | payer MEDICARE, MEDICAID ==
[~2019-02-25] VITALS: Ht 172.7 cm; Wt 89.0 kg
[2019-02-25] MEDS ORDERED: ONDANSETRON HCL 4MG/2ML INJ IV STA (03:05)
[2019-02-25] MEDS ORDERED: MORPHINE SULFATE 4 MG/ML CPJ (NOT FOR IM USE) IV STA (03:05)
[2019-02-25] MEDS ORDERED: NITROGLYCERIN OINT 1GM/INCH UDPKT TD ONE (03:15)
[2019-02-25] MEDS ORDERED: ASPIRIN 81MG TABLET PO ONE (03:15)
[2019-02-25 03:17] LABS: BASOPHILS % 0.5 % (0.0-2.0); EOSINOPHILS % 2.7 % (0.0-5.0); HEMATOCRIT. 41.1 % (42.0-52.0); HEMOGLOBIN. 13.3 g/dL (14.0-18.0); LYMPHOCYTES % 20.9 % (20.0-50.0); MEAN CORPUSCULAR HEMOGLOBIN 27.2 pg (28.0-32.0); MEAN CORPUSCULAR VOLUME 84.4 fL (80.0-94.0); MEAN PLATELET VOLUME 11.6 fl (7.4-10.4); NEUTROPHILS % 65.9 % (40.0-76.0); PLATELET 167 x1000/uL (130-400); RED BLOOD CELL COUNT 4.87 mill/uL (4.7-6.1); RED CELL DISTRIBUTION WIDTH 16.1 % (11.6-14.6)
[2019-02-25 03:18] LABS: CHLORIDE 107 mEq/L (98-107)
[2019-02-25 09:36] VITALS: BP 120/65
== END 2019-02-25 09:40 | disposition home or self-care (01) ==
LOC: ER 01:50 → CANBEDREQ 10:08
DX: R07.89 Other chest pain (principal); R00.0 Tachycardia, unspecified; R03.0 Elevated blood-pressure reading, without diagnosis of hypertension; E11.9 Type 2 diabetes mellitus without complications; E78.00 Pure hypercholesterolemia, unspecified
CPT/HCPCS: 36415; 71045; 80053; 83880; 84484; 85025; 93005; 96374; 96375; 99284; J2270; J2405

== ENCOUNTER 2019-04-20 11:44 | Emergency (ER) | payer MEDICARE, MEDICAID ==
[~2019-04-20] VITALS: Ht 167.6 cm; Wt 73.0 kg
[2019-04-20 11:49] VITALS: BP 119/76
[2019-04-20 13:05] LABS: BASOPHILS % 0.5 % (0.0-2.0); EOSINOPHILS % 2.1 % (0.0-5.0); HEMATOCRIT. 39.9 % (42.0-52.0); HEMOGLOBIN. 13.1 g/dL (14.0-18.0); LYMPHOCYTES % 15.5 % (20.0-50.0); MEAN CORPUSCULAR HEMOGLOBIN 27.2 pg (28.0-32.0); MEAN CORPUSCULAR VOLUME 82.9 fL (80.0-94.0); MEAN PLATELET VOLUME 9.4 fl (7.4-10.4); MONOCYTES % 11.4 % (2.0-8.0); NEUTROPHILS % 70.5 % (40.0-76.0); PLATELET 175 x1000/uL (130-400); RED BLOOD CELL COUNT 4.81 mill/uL (4.7-6.1); RED CELL DISTRIBUTION WIDTH 17.6 % (11.6-14.6)
[2019-04-20 13:12] LABS: CHLORIDE 108 mEq/L (98-107)
== END 2019-04-20 15:04 | disposition home or self-care (01) ==
LOC: ER 11:44
DX: R07.89 Other chest pain (principal); E11.9 Type 2 diabetes mellitus without complications; E78.00 Pure hypercholesterolemia, unspecified; I11.0 Hypertensive heart disease with heart failure; I50.9 Heart failure, unspecified; Z95.1 Presence of aortocoronary bypass graft; Z95.0 Presence of cardiac pacemaker; Z79.899 Other long term (current) drug therapy; Z88.5 Allergy status to narcotic agent; Z91.041 Radiographic dye allergy status; Z91.013 Allergy to seafood
CPT/HCPCS: 36415; 71045; 80053; 83880; 84484; 85025; 93005; 99285

== ENCOUNTER 2019-04-25 00:25 | Emergency (ER) | payer MEDICARE, MEDICAID ==
[~2019-04-25] VITALS: Ht 172.7 cm; Wt 89.0 kg
[2019-04-25] MEDS ORDERED: IBUPROFEN 600MG TABLET PO STA (02:10)
[2019-04-25 03:02] LABS: BASOPHILS % 0.8 % (0.0-2.0); EOSINOPHILS % 3.5 % (0.0-5.0); HEMATOCRIT. 39.3 % (42.0-52.0); HEMOGLOBIN. 12.7 g/dL (14.0-18.0); LYMPHOCYTES % 22.9 % (20.0-50.0); MEAN CORPUSCULAR HEMOGLOBIN 26.9 pg (28.0-32.0); MEAN CORPUSCULAR VOLUME 83.3 fL (80.0-94.0); MEAN PLATELET VOLUME 9.2 fl (7.4-10.4); MONOCYTES % 12.6 % (2.0-8.0); NEUTROPHILS % 60.2 % (40.0-76.0); PLATELET 170 x1000/uL (130-400); RED BLOOD CELL COUNT 4.71 mill/uL (4.7-6.1); RED CELL DISTRIBUTION WIDTH 18.1 % (11.6-14.6)
[2019-04-25 03:08] LABS: CHLORIDE 109 mEq/L (98-107)
[2019-04-25 03:58] VITALS: BP 121/72
== END 2019-04-25 04:57 | disposition home or self-care (01) ==
LOC: ER 00:25
DX: R07.89 Other chest pain (principal); R00.2 Palpitations; E78.00 Pure hypercholesterolemia, unspecified; E11.9 Type 2 diabetes mellitus without complications; Z88.5 Allergy status to narcotic agent; Z91.041 Radiographic dye allergy status; Z88.1 Allergy status to other antibiotic agents; Z91.013 Allergy to seafood; Z79.899 Other long term (current) drug therapy
CPT/HCPCS: 36415; 71045; 80053; 83880; 84484; 85025; 93005; 99285

== ENCOUNTER 2019-05-17 01:04 | Emergency (ER) | payer MEDICARE, MEDICAID ==
[~2019-05-17] VITALS: Ht 172.7 cm; Wt 89.0 kg
[2019-05-17 01:16] VITALS: BP 142/78
== END 2019-05-17 07:57 | disposition left against medical advice (07) ==
LOC: ER 01:04
DX: Z53.21 Procedure and treatment not carried out due to patient leaving prior to being seen by health care provider (principal); R07.89 Other chest pain
CPT/HCPCS: 93005

== ENCOUNTER 2019-05-30 15:58 | Inpatient (IN) | payer MEDICARE, MEDICAID ==
[~2019-05-30] VITALS: Ht 172.7 cm; Wt 68.5 kg
[2019-05-30] MEDS ORDERED: ASPIRIN 81MG TABLET PO ONE (17:30)
[2019-05-30] MEDS ORDERED: NITROGLYCERIN 0.4MG TABLET SL SL ONE (17:45)
[2019-05-30 18:51] LABS: BASOPHILS % 0.7 % (0.0-2.0); EOSINOPHILS % 2.5 % (0.0-5.0); HEMATOCRIT. 37.7 % (42.0-52.0); HEMOGLOBIN. 12.4 g/dL (14.0-18.0); LYMPHOCYTES % 21.8 % (20.0-50.0); MEAN CORPUSCULAR HEMOGLOBIN 27.3 pg (28.0-32.0); MEAN CORPUSCULAR VOLUME 83.1 fL (80.0-94.0); MONOCYTES % 9.3 % (2.0-8.0); NEUTROPHILS % 65.7 % (40.0-76.0); PLATELET 169 x1000/uL (130-400); RED BLOOD CELL COUNT 4.53 mill/uL (4.7-6.1); RED CELL DISTRIBUTION WIDTH 17.1 % (11.6-14.6)
[2019-05-30 18:57] LABS: CHLORIDE 110 mEq/L (98-107)
[2019-05-30] MEDS ORDERED: ONDANSETRON HCL 4MG/2ML INJ IV ONE (19:15)
[2019-05-30] MEDS ORDERED: MORPHINE SULFATE 4 MG/ML CPJ (NOT FOR IM USE) IV ONE (19:15)
[2019-05-30] MEDS ORDERED: ONDANSETRON HCL 4MG/2ML INJ IV PRN (21:15)
[2019-05-30] MEDS ORDERED: HYDROCODONE/ACETAMINOPHEN 5/325MG TABLET PO PRN (21:15)
[2019-05-30] MEDS ORDERED: MAGNESIUM/ALUMINUM HYDROXIDE/SIMETHICONE 30ML UDC PO PRN (21:15)
[2019-05-30] MEDS ORDERED: DOCUSATE SODIUM 100MG CAPSULE PO PRN (21:15)
[2019-05-30] MEDS ORDERED: IPRATROPIUM/ALBUTEROL 0.5-3(2.5)MG/3ML NEB NEB PRN (21:15)
[2019-05-30] MEDS ORDERED: ACETAMINOPHEN 325MG TABLET PO PRN (21:15)
[2019-05-30] MEDS ORDERED: CLONIDINE 0.1MG TABLET PO PRN (21:15)
[2019-05-30 22:15] LABS: CHLORIDE 109 mEq/L (98-107)
[2019-05-30 22:23] LABS: CREATINE KINASE 94 IU/L (39-308)
[2019-05-30 22:25] LABS: CREATINE KINASE MB FRACTION 1.6 ng/mL (0.5-3.6)
[2019-05-31] VITALS (7 sets, daily range): BP systolic 97–138; BP diastolic 53–78
[2019-05-31] MEDS: MORPHINE SULFATE 2 MG/ML CPJ (NOT FOR IM USE) IV PRN ×2 (00:49→11:42)
[2019-05-31] MEDS ORDERED: ENOXAPARIN 40MG/0.4ML SYR SUBCUT SCH (01:00)
[2019-05-31 02:04] LABS: CLARITY URINE CLEAR (CLEAR); COLOR URINE YELLOW (YELLOW); KETONES URINE NEGATIVE (NEGATIVE); LEUKOCYTE ESTERASE URINE 1+ (NEGATIVE); NITRITE URINE NEGATIVE (NEGATIVE); OCCULT BLOOD URINE NEGATIVE (NEGATIVE); PROTEIN URINE NEGATIVE (NEGATIVE); SPECIFIC GRAVITY URINE 1.017 (1.005-1.030)
[2019-05-31 02:14] LABS: *AMPHETAMINES SCREEN URINE NEGATIVE (NEGATIVE); *BARBITURATES SCREEN URINE NEGATIVE (NEGATIVE); *BENZODIAZEPINES SCREEN URINE NEGATIVE (NEGATIVE)
[2019-05-31 02:15] LABS: *COCAINE SCREEN URINE NEGATIVE (NEGATIVE); CANNABINOID URINE SCREEN NEGATIVE (NEGATIVE); METHADONE URINE SCREEN NEGATIVE (NEGATIVE); OPIATES URINE SCREEN PRESUMTIVE POSITIVE (NEGATIVE); PHENCYCLIDINE URINE SCREEN NEGATIVE (NEGATIVE)
[2019-05-31] MEDS ORDERED: METF-414 PO (02:57)
[2019-05-31] MEDS ORDERED: TRAV2.5D EACHEYE (02:57)
[2019-05-31] MEDS ORDERED: BRIM.2 EACHEYE (02:57)
[2019-05-31] MEDS ORDERED: DORZ10DR12 EACHEYE (02:57)
[2019-05-31] MEDS ORDERED: ATOR10TA PO (02:57)
[2019-05-31] MEDS ORDERED: FINA5TAB11 PO (02:57)
[2019-05-31] MEDS ORDERED: APIX5TAB PO (02:57)
[2019-05-31] MEDS ORDERED: TAMS-11 PO (02:57)
[2019-05-31 07:14] LABS: BASOPHILS % 0.8 % (0.0-2.0); EOSINOPHILS % 3.3 % (0.0-5.0); HEMATOCRIT. 42.5 % (42.0-52.0); HEMOGLOBIN. 14.2 g/dL (14.0-18.0); LYMPHOCYTES % 30.3 % (20.0-50.0); MEAN CORPUSCULAR HEMOGLOBIN 27.5 pg (28.0-32.0); MEAN CORPUSCULAR VOLUME 82.2 fL (80.0-94.0); MEAN PLATELET VOLUME 10.5 fl (7.4-10.4); NEUTROPHILS % 55.6 % (40.0-76.0); PLATELET 152 x1000/uL (130-400); RED BLOOD CELL COUNT 5.18 mill/uL (4.7-6.1); RED CELL DISTRIBUTION WIDTH 17.5 % (11.6-14.6)
[2019-05-31 08:26] LABS: LDL CHOLESTEROL 84 mg/dL (5-100)
[2019-05-31 08:27] LABS: CREATINE KINASE 127 IU/L (39-308)
[2019-05-31 08:28] LABS: HDL CHOLESTEROL 33 mg/dL (40-59)
[2019-05-31 08:29] LABS: CREATINE KINASE MB FRACTION 1.6 ng/mL (0.5-3.6)
[2019-05-31] MEDS: ASPIRIN 81MG EC TABLET PO SCH (09:12)
[2019-05-31] MEDS ORDERED: DORZOLAM/TIMOLOL 2.23/0.68% OPHTH DROPS 10ML EACHEYE SCH (17:00)
[2019-05-31] MEDS ORDERED: NON FORMULARY PATIENT HOME MED XX SCH (17:00)
[2019-05-31] MEDS: APIXABAN 5 MG TABLET PO SCH (18:27)
[2019-05-31] MEDS: FINASTERIDE 5MG TABLET PO SCH (18:27)
[2019-05-31] MEDS: ATORVASTATIN CALCIUM 10MG TABLET PO SCH (20:44)
[2019-05-31] MEDS: LATANOPROST 0.005% OPHTH DROPS 2.5ML BOTHEYE SCH (20:45)
[2019-05-31] MEDS: TAMSULOSIN HCL 0.4MG SR CAPSULE PO SCH (20:45)
[2019-05-31] MEDS: DORZOLAM/TIMOLOL 2.23/0.68% OPHTH DROPS 10ML BOTHEYE SCH (20:45)
[2019-05-31] MEDS: BRIMONIDINE 0.2% OPHTH DROPS 5ML EACHEYE SCH (20:45)
[2019-06-01] VITALS: BP 94/58
[2019-06-01 04:00] VITALS: BP 104/53
[2019-06-01 06:23] LABS: CHLORIDE 110 mEq/L (98-107)
[2019-06-01 07:54] VITALS: BP 105/69
[2019-06-01] MEDS: FINASTERIDE 5MG TABLET PO SCH (09:38)
[2019-06-01] MEDS: APIXABAN 5 MG TABLET PO SCH ×2 (09:38→18:30)
[2019-06-01] MEDS: DORZOLAM/TIMOLOL 2.23/0.68% OPHTH DROPS 10ML BOTHEYE SCH ×2 (09:38→18:31)
[2019-06-01] MEDS: ASPIRIN 81MG EC TABLET PO SCH (09:38)
[2019-06-01] MEDS: BRIMONIDINE 0.2% OPHTH DROPS 5ML EACHEYE SCH ×2 (09:39→18:30)
[2019-06-01 12:00] VITALS: BP 98/58
[2019-06-01] MEDS ORDERED: ASPI-1158 PO (15:58)
[2019-06-01 16:00] VITALS: BP 126/56
[2019-06-01 17:42] LABS: BASOPHILS % 0.8 % (0.0-2.0); EOSINOPHILS % 2.7 % (0.0-5.0); HEMATOCRIT. 36.2 % (42.0-52.0); HEMOGLOBIN. 11.9 g/dL (14.0-18.0); LYMPHOCYTES % 20.8 % (20.0-50.0); MEAN CORPUSCULAR HEMOGLOBIN 27.1 pg (28.0-32.0); MEAN CORPUSCULAR VOLUME 82.8 fL (80.0-94.0); MEAN PLATELET VOLUME 9.8 fl (7.4-10.4); MONOCYTES % 9.9 % (2.0-8.0); NEUTROPHILS % 65.8 % (40.0-76.0); PLATELET 182 x1000/uL (130-400); RED BLOOD CELL COUNT 4.37 mill/uL (4.7-6.1); RED CELL DISTRIBUTION WIDTH 17.2 % (11.6-14.6)
[2019-06-01 20:00] VITALS: BP 118/63
[2019-06-01] MEDS: ATORVASTATIN CALCIUM 10MG TABLET PO SCH (21:36)
[2019-06-01] MEDS: TAMSULOSIN HCL 0.4MG SR CAPSULE PO SCH (21:36)
[2019-06-01] MEDS: LATANOPROST 0.005% OPHTH DROPS 2.5ML BOTHEYE SCH (21:36)
[2019-06-02 04:00] VITALS: BP 108/58
[2019-06-02] MEDS: APIXABAN 5 MG TABLET PO SCH ×2 (08:20→16:53)
[2019-06-02] MEDS: FINASTERIDE 5MG TABLET PO SCH (08:20)
[2019-06-02] MEDS: BRIMONIDINE 0.2% OPHTH DROPS 5ML EACHEYE SCH ×2 (08:20→16:54)
[2019-06-02] MEDS: DORZOLAM/TIMOLOL 2.23/0.68% OPHTH DROPS 10ML BOTHEYE SCH ×2 (08:20→16:54)
[2019-06-02] MEDS: ASPIRIN 81MG EC TABLET PO SCH (08:20)
[2019-06-02 20:00] VITALS: BP 103/60
[2019-06-02] MEDS: ATORVASTATIN CALCIUM 10MG TABLET PO SCH (21:53)
[2019-06-02] MEDS: LATANOPROST 0.005% OPHTH DROPS 2.5ML BOTHEYE SCH (21:54)
[2019-06-02] MEDS: TAMSULOSIN HCL 0.4MG SR CAPSULE PO SCH (21:54)
[2019-06-03] VITALS: BP 104/58
[2019-06-03 04:00] VITALS: BP 114/66
[2019-06-03 08:00] VITALS: BP 118/70
[2019-06-03] MEDS: ASPIRIN 81MG EC TABLET PO SCH (08:18)
[2019-06-03] MEDS: BRIMONIDINE 0.2% OPHTH DROPS 5ML EACHEYE SCH ×2 (08:18→17:06)
[2019-06-03] MEDS: APIXABAN 5 MG TABLET PO SCH ×2 (08:18→17:06)
[2019-06-03] MEDS: DORZOLAM/TIMOLOL 2.23/0.68% OPHTH DROPS 10ML BOTHEYE SCH ×2 (08:18→17:06)
[2019-06-03] MEDS: FINASTERIDE 5MG TABLET PO SCH (08:18)
[2019-06-03] MEDS ORDERED: DEXTROSE 50% WATER 50ML SYRINGE IV PRN (11:15)
[2019-06-03] MEDS: BLOOD SUGAR DIAGNOSTIC STRIP TEST SCH ×3 (11:39→21:57)
[2019-06-03 12:00] VITALS: BP 108/61
[2019-06-03] MEDS: INSULIN LISPRO 100 UNITS/ML SUBCUT SCH ×3 (12:37→22:08)
[2019-06-03 16:00] VITALS: BP 115/73
[2019-06-03 20:00] VITALS: BP 110/61
[2019-06-03] MEDS: ATORVASTATIN CALCIUM 10MG TABLET PO SCH (21:57)
[2019-06-03] MEDS: LATANOPROST 0.005% OPHTH DROPS 2.5ML BOTHEYE SCH (21:57)
[2019-06-03] MEDS: TAMSULOSIN HCL 0.4MG SR CAPSULE PO SCH (21:59)
[2019-06-04] VITALS: BP 103/56
[2019-06-04 04:00] VITALS: BP 105/58
[2019-06-04] MEDS: BLOOD SUGAR DIAGNOSTIC STRIP TEST SCH ×4 (06:12→21:19)
[2019-06-04] MEDS: INSULIN LISPRO 100 UNITS/ML SUBCUT SCH ×4 (06:19→21:00)
[2019-06-04 08:00] VITALS: BP 109/65
[2019-06-04] MEDS: APIXABAN 5 MG TABLET PO SCH ×2 (08:21→18:08)
[2019-06-04] MEDS: FINASTERIDE 5MG TABLET PO SCH (08:21)
[2019-06-04] MEDS: ASPIRIN 81MG EC TABLET PO SCH (08:21)
[2019-06-04] MEDS: BRIMONIDINE 0.2% OPHTH DROPS 5ML EACHEYE SCH ×2 (08:23→18:08)
[2019-06-04] MEDS: DORZOLAM/TIMOLOL 2.23/0.68% OPHTH DROPS 10ML BOTHEYE SCH ×2 (08:23→18:08)
[2019-06-04 12:00] VITALS: BP 107/57
[2019-06-04 16:00] VITALS: BP 105/60
[2019-06-04 20:00] VITALS: BP 99/62
[2019-06-04] MEDS: TAMSULOSIN HCL 0.4MG SR CAPSULE PO SCH (21:10)
[2019-06-04] MEDS: ATORVASTATIN CALCIUM 10MG TABLET PO SCH (21:10)
[2019-06-04] MEDS: LATANOPROST 0.005% OPHTH DROPS 2.5ML BOTHEYE SCH (21:11)
[2019-06-05] VITALS: BP 101/55
[2019-06-05 04:00] VITALS: BP 114/53
[2019-06-05] MEDS: BLOOD SUGAR DIAGNOSTIC STRIP TEST SCH ×4 (05:40→20:41)
[2019-06-05] MEDS: INSULIN LISPRO 100 UNITS/ML SUBCUT SCH ×4 (05:41→20:41)
[2019-06-05 08:00] VITALS: BP 111/70
[2019-06-05] MEDS: FINASTERIDE 5MG TABLET PO SCH (08:33)
[2019-06-05] MEDS: APIXABAN 5 MG TABLET PO SCH ×2 (08:33→17:04)
[2019-06-05] MEDS: ASPIRIN 81MG EC TABLET PO SCH (08:33)
[2019-06-05] MEDS: BRIMONIDINE 0.2% OPHTH DROPS 5ML EACHEYE SCH ×2 (08:33→17:05)
[2019-06-05] MEDS: DORZOLAM/TIMOLOL 2.23/0.68% OPHTH DROPS 10ML BOTHEYE SCH ×2 (08:33→17:05)
[2019-06-05 12:00] VITALS: BP 109/56
[2019-06-05 16:00] VITALS: BP 100/51
[2019-06-05 20:00] VITALS: BP 102/55
[2019-06-05] MEDS: TAMSULOSIN HCL 0.4MG SR CAPSULE PO SCH (20:28)
[2019-06-05] MEDS: ATORVASTATIN CALCIUM 10MG TABLET PO SCH (20:28)
[2019-06-05] MEDS: LATANOPROST 0.005% OPHTH DROPS 2.5ML BOTHEYE SCH (20:29)
[2019-06-06 04:00] VITALS: BP 100/58
[2019-06-06] MEDS: INSULIN LISPRO 100 UNITS/ML SUBCUT SCH ×4 (05:42→20:34)
[2019-06-06] MEDS: BLOOD SUGAR DIAGNOSTIC STRIP TEST SCH ×4 (05:42→20:33)
[2019-06-06 08:00] VITALS: BP 98/51
[2019-06-06] MEDS: APIXABAN 5 MG TABLET PO SCH ×2 (08:41→17:35)
[2019-06-06] MEDS: ASPIRIN 81MG EC TABLET PO SCH (08:41)
[2019-06-06] MEDS: FINASTERIDE 5MG TABLET PO SCH (08:45)
[2019-06-06] MEDS: DORZOLAM/TIMOLOL 2.23/0.68% OPHTH DROPS 10ML BOTHEYE SCH ×2 (08:55→17:36)
[2019-06-06] MEDS: BRIMONIDINE 0.2% OPHTH DROPS 5ML EACHEYE SCH ×2 (08:55→17:35)
[2019-06-06 12:00] VITALS: BP 109/72
[2019-06-06 16:05] VITALS: BP 115/69
[2019-06-06 20:00] VITALS: BP 100/70
[2019-06-06] MEDS: TAMSULOSIN HCL 0.4MG SR CAPSULE PO SCH (20:22)
[2019-06-06] MEDS: ATORVASTATIN CALCIUM 10MG TABLET PO SCH (20:22)
[2019-06-06] MEDS: LATANOPROST 0.005% OPHTH DROPS 2.5ML BOTHEYE SCH (20:22)
[2019-06-07] VITALS: BP 112/65
[2019-06-07 04:00] VITALS: BP 100/60
[2019-06-07] MEDS: BLOOD SUGAR DIAGNOSTIC STRIP TEST SCH ×2 (06:23→11:32)
[2019-06-07] MEDS: INSULIN LISPRO 100 UNITS/ML SUBCUT SCH ×2 (06:23→11:32)
[2019-06-07 08:00] VITALS: BP 120/72
[2019-06-07] MEDS: ASPIRIN 81MG EC TABLET PO SCH (09:25)
[2019-06-07] MEDS: APIXABAN 5 MG TABLET PO SCH (09:25)
[2019-06-07] MEDS: FINASTERIDE 5MG TABLET PO SCH (09:25)
[2019-06-07] MEDS: BRIMONIDINE 0.2% OPHTH DROPS 5ML EACHEYE SCH (09:26)
[2019-06-07] MEDS: DORZOLAM/TIMOLOL 2.23/0.68% OPHTH DROPS 10ML BOTHEYE SCH (09:26)
[2019-06-07 10:31] VITALS: BP 120/72
== END 2019-06-07 11:30 | disposition home or self-care (01) | DRG 206 ==
LOC: ER 15:58 → EDBEDREQ 19:44 → EDBEDREQTM 19:44 → ENRESERV 23:16 → 5WST 05-31 00:07
PROVIDERS: ADMIT Internal Medicine; ATTEND Internal Medicine
DX: M94.0 Chondrocostal junction syndrome [Tietze] (principal); E11.9 Type 2 diabetes mellitus without complications; E78.5 Hyperlipidemia, unspecified; I10 Essential (primary) hypertension; D72.821 Monocytosis (symptomatic); E78.00 Pure hypercholesterolemia, unspecified; Z79.01 Long term (current) use of anticoagulants; Z86.711 Personal history of pulmonary embolism; Z95.0 Presence of cardiac pacemaker; Z91.19 Patient's noncompliance with other medical treatment and regimen; Z82.49 Family history of ischemic heart disease and other diseases of the circulatory system; Z91.041 Radiographic dye allergy status; Z91.013 Allergy to seafood; Z88.8 Allergy status to other drugs, medicaments and biological substances; Z91.018 Allergy to other foods; Z79.84 Long term (current) use of oral hypoglycemic drugs; Z79.899 Other long term (current) drug therapy
CPT/HCPCS: 36415; 71045; 80048; 80053; 80061; 80305; 81003; 82550; 82553; 82962; 83036; 83735; 83880; 84443; 84484; 85025; 93005; 93306; 96374; 96375; 99285; J1650; J1815; J2270; J2405

== ENCOUNTER 2019-06-22 21:57 | Emergency (ER) | payer MEDICARE, MEDICAID ==
[~2019-06-22] VITALS: Ht 172.7 cm; Wt 89.0 kg
[~2019-06-22 21:57] MED LIST changes: +ASPI-1158 PO; +BRIM.2 EACHEYE; -BRIM5DRO BOTHEYE; +DORZ10DR12 EACHEYE; +FINA5TAB11 PO; -FINA5TAB3 PO; -TRAV2.5D BOTHEYE; +TRAV2.5D EACHEYE
[2019-06-22 23:14] LABS: BASOPHILS % 0.9 % (0.0-2.0); EOSINOPHILS % 2.1 % (0.0-5.0); HEMATOCRIT. 37.2 % (42.0-52.0); HEMOGLOBIN. 12.3 g/dL (14.0-18.0); LYMPHOCYTES % 20.2 % (20.0-50.0); MEAN CORPUSCULAR HEMOGLOBIN 27.1 pg (28.0-32.0); MEAN CORPUSCULAR VOLUME 82.1 fL (80.0-94.0); MEAN PLATELET VOLUME 9.2 fl (7.4-10.4); MONOCYTES % 12.8 % (2.0-8.0); PLATELET 170 x1000/uL (130-400); RED BLOOD CELL COUNT 4.53 mill/uL (4.7-6.1); RED CELL DISTRIBUTION WIDTH 17.2 % (11.6-14.6)
[2019-06-22 23:21] LABS: CHLORIDE 110 mEq/L (98-107)
[2019-06-23 03:00] VITALS: BP 125/80
[2019-06-24] MEDS ORDERED: APIX5TAB MT (17:27)
[2019-06-24] MEDS ORDERED: FINA5TAB3 PO (17:27)
[2019-06-24] MEDS ORDERED: TAMS-11 PO (17:27)
== END 2019-06-23 04:01 | disposition home or self-care (01) ==
LOC: ER 21:57
DX: R07.89 Other chest pain (principal); R00.2 Palpitations; E11.9 Type 2 diabetes mellitus without complications; Z95.0 Presence of cardiac pacemaker
CPT/HCPCS: 36415; 71045; 80053; 83880; 84484; 85025; 93005; 99285

== ENCOUNTER 2019-06-24 08:36 | Inpatient (IN) | payer MEDICARE, MEDICAID ==
[~2019-06-24] VITALS: Ht 172.7 cm; Wt 61.7 kg
[2019-06-24 10:25] LABS: BASOPHILS % 0.6 % (0.0-2.0); EOSINOPHILS % 2.7 % (0.0-5.0); HEMATOCRIT. 36.7 % (42.0-52.0); HEMOGLOBIN. 11.9 g/dL (14.0-18.0); LYMPHOCYTES % 16.7 % (20.0-50.0); MEAN CORPUSCULAR HEMOGLOBIN 27.1 pg (28.0-32.0); MEAN CORPUSCULAR VOLUME 83.5 fL (80.0-94.0); MEAN PLATELET VOLUME 9.9 fl (7.4-10.4); MONOCYTES % 10.7 % (2.0-8.0); NEUTROPHILS % 69.3 % (40.0-76.0); PLATELET 155 x1000/uL (130-400); RED CELL DISTRIBUTION WIDTH 17.2 % (11.6-14.6)
[2019-06-24 10:35] LABS: CHLORIDE 111 mEq/L (98-107)
[2019-06-24] MEDS ORDERED: ASPIRIN 81MG TABLET PO ONE (11:45)
[2019-06-24] MEDS ORDERED: CLONIDINE 0.1MG TABLET PO PRN (14:45)
[2019-06-24] MEDS ORDERED: ONDANSETRON HCL 4MG/2ML INJ IV PRN (14:45)
[2019-06-24 15:22] LABS: PHOSPHORUS 2.4 mg/dL (2.5-4.9)
[2019-06-24 16:10] VITALS: BP 115/80
[2019-06-24 16:20] VITALS: BP 115/80
[2019-06-24] MEDS ORDERED: DEXTROSE 50% WATER 50ML SYRINGE IV PRN (16:45)
[2019-06-24] MEDS ORDERED: DORZOLAM/TIMOLOL 2.23/0.68% OPHTH DROPS 10ML EACHEYE SCH (17:00)
[2019-06-24] MEDS ORDERED: APIXABAN 5 MG TABLET PO SCH (17:00)
[2019-06-24] MEDS ORDERED: TAMS-11 PO (17:27)
[2019-06-24] MEDS ORDERED: FINA5TAB3 PO (17:27)
[2019-06-24] MEDS ORDERED: APIX5TAB MT (17:27)
[2019-06-24] MEDS: METFORMIN HCL 500MG TABLET PO SCH (17:46)
[2019-06-24] MEDS: INSULIN LISPRO 100 UNITS/ML SUBCUT SCH ×2 (17:46→21:00)
[2019-06-24] MEDS: ENOXAPARIN 100MG/ML SYR SUBCUT SCH (17:47)
[2019-06-24] MEDS: BLOOD SUGAR DIAGNOSTIC STRIP TEST SCH ×2 (17:47→21:03)
[2019-06-24] MEDS: DORZOLAM/TIMOLOL 2.23/0.68% OPHTH DROPS 10ML BOTHEYE SCH (18:22)
[2019-06-24] MEDS: BRIMONIDINE 0.2% OPHTH DROPS 5ML EACHEYE SCH (18:22)
[2019-06-24 20:00] VITALS: BP 108/59
[2019-06-24] MEDS: ATORVASTATIN CALCIUM 10MG TABLET PO SCH (21:01)
[2019-06-24] MEDS: TAMSULOSIN HCL 0.4MG SR CAPSULE PO SCH (21:01)
[2019-06-25 04:00] VITALS: BP 121/79
[2019-06-25] MEDS: BLOOD SUGAR DIAGNOSTIC STRIP TEST SCH ×4 (06:24→21:11)
[2019-06-25] MEDS: ENOXAPARIN 100MG/ML SYR SUBCUT SCH (06:32)
[2019-06-25 07:28] LABS: EOSINOPHILS % 3.6 % (0.0-5.0); HEMATOCRIT. 35.8 % (42.0-52.0); HEMOGLOBIN. 11.7 g/dL (14.0-18.0); LYMPHOCYTES % 25.3 % (20.0-50.0); MEAN CORPUSCULAR HEMOGLOBIN 26.6 pg (28.0-32.0); MEAN CORPUSCULAR VOLUME 81.6 fL (80.0-94.0); MEAN PLATELET VOLUME 10.1 fl (7.4-10.4); MONOCYTES % 12.1 % (2.0-8.0); PLATELET 151 x1000/uL (130-400); PROTHROMBIN TIME 10.6 sec (9.6-11.0); RED BLOOD CELL COUNT 4.39 mill/uL (4.7-6.1); RED CELL DISTRIBUTION WIDTH 16.7 % (11.6-14.6)
[2019-06-25] MEDS: INSULIN LISPRO 100 UNITS/ML SUBCUT SCH ×4 (07:31→21:00)
[2019-06-25 07:41] LABS: CHLORIDE 110 mEq/L (98-107)
[2019-06-25 07:47] LABS: LDL CHOLESTEROL 105 mg/dL (5-100)
[2019-06-25 07:48] LABS: HDL CHOLESTEROL 36 mg/dL (40-59)
[2019-06-25 08:00] VITALS: BP 116/64
[2019-06-25] MEDS: FINASTERIDE 5MG TABLET PO SCH (08:42)
[2019-06-25] MEDS: DORZOLAM/TIMOLOL 2.23/0.68% OPHTH DROPS 10ML BOTHEYE SCH ×2 (08:42→17:15)
[2019-06-25] MEDS: METFORMIN HCL 500MG TABLET PO SCH ×2 (08:42→17:15)
[2019-06-25] MEDS: ASPIRIN 81MG EC TABLET PO SCH (08:42)
[2019-06-25] MEDS: BRIMONIDINE 0.2% OPHTH DROPS 5ML EACHEYE SCH ×2 (08:44→17:15)
[2019-06-25 12:27] VITALS: BP 121/77
[2019-06-25] MEDS: APIXABAN 5 MG TABLET PO SCH (17:15)
[2019-06-25 20:40] VITALS: BP 127/82
[2019-06-25] MEDS: ATORVASTATIN CALCIUM 10MG TABLET PO SCH (21:43)
[2019-06-25] MEDS: TAMSULOSIN HCL 0.4MG SR CAPSULE PO SCH (21:44)
[2019-06-26] VITALS: BP 129/69
[2019-06-26] MEDS: ACETAMINOPHEN 325MG TABLET PO PRN ×2 (00:49→21:54)
[2019-06-26 04:00] VITALS: BP 115/66
[2019-06-26] MEDS: BLOOD SUGAR DIAGNOSTIC STRIP TEST SCH ×4 (06:25→21:56)
[2019-06-26] MEDS: INSULIN LISPRO 100 UNITS/ML SUBCUT SCH ×4 (07:18→21:00)
[2019-06-26 08:00] VITALS: BP 116/59
[2019-06-26] MEDS: DORZOLAM/TIMOLOL 2.23/0.68% OPHTH DROPS 10ML BOTHEYE SCH ×2 (08:44→17:21)
[2019-06-26] MEDS: APIXABAN 5 MG TABLET PO SCH ×2 (08:44→17:21)
[2019-06-26] MEDS: FINASTERIDE 5MG TABLET PO SCH (08:44)
[2019-06-26] MEDS: BRIMONIDINE 0.2% OPHTH DROPS 5ML EACHEYE SCH ×2 (08:44→17:21)
[2019-06-26] MEDS: METFORMIN HCL 500MG TABLET PO SCH ×2 (08:44→17:21)
[2019-06-26] MEDS: ASPIRIN 81MG EC TABLET PO SCH (08:44)
[2019-06-26 12:00] VITALS: BP 135/65
[2019-06-26 16:00] VITALS: BP 115/61
[2019-06-26 16:16] LABS: CHLORIDE 109 mEq/L (98-107)
[2019-06-26 17:05] LABS: BASOPHILS % 0.6 % (0.0-2.0); EOSINOPHILS % 3.1 % (0.0-5.0); HEMATOCRIT. 37.5 % (42.0-52.0); HEMOGLOBIN. 12.2 g/dL (14.0-18.0); LYMPHOCYTES % 20.5 % (20.0-50.0); MEAN CORPUSCULAR HEMOGLOBIN 26.6 pg (28.0-32.0); MEAN CORPUSCULAR VOLUME 82.1 fL (80.0-94.0); MONOCYTES % 9.9 % (2.0-8.0); NEUTROPHILS % 65.9 % (40.0-76.0); PLATELET 159 x1000/uL (130-400); RED BLOOD CELL COUNT 4.56 mill/uL (4.7-6.1); RED CELL DISTRIBUTION WIDTH 17.3 % (11.6-14.6)
[2019-06-26 20:00] VITALS: BP 124/72
[2019-06-26] MEDS ORDERED: ATORVASTATIN CALCIUM 20MG TABLET PO SCH (21:00)
[2019-06-26] MEDS: TAMSULOSIN HCL 0.4MG SR CAPSULE PO SCH (23:52)
[2019-06-27] VITALS: BP 117/56
[2019-06-27 06:22] LABS: BASOPHILS % 0.8 % (0.0-2.0); CHLORIDE 110 mEq/L (98-107); EOSINOPHILS % 3.1 % (0.0-5.0); HEMATOCRIT. 36.1 % (42.0-52.0); LYMPHOCYTES % 23.5 % (20.0-50.0); MEAN CORPUSCULAR HEMOGLOBIN 27.2 pg (28.0-32.0); MEAN CORPUSCULAR VOLUME 81.8 fL (80.0-94.0); MEAN PLATELET VOLUME 9.6 fl (7.4-10.4); MONOCYTES % 10.4 % (2.0-8.0); NEUTROPHILS % 62.2 % (40.0-76.0); PLATELET 147 x1000/uL (130-400); RED BLOOD CELL COUNT 4.41 mill/uL (4.7-6.1); RED CELL DISTRIBUTION WIDTH 16.5 % (11.6-14.6)
[2019-06-27] MEDS: INSULIN LISPRO 100 UNITS/ML SUBCUT SCH ×2 (06:58→12:56)
[2019-06-27] MEDS: BLOOD SUGAR DIAGNOSTIC STRIP TEST SCH ×2 (06:58→12:29)
[2019-06-27 08:00] VITALS: BP 132/86
[2019-06-27] MEDS: DORZOLAM/TIMOLOL 2.23/0.68% OPHTH DROPS 10ML BOTHEYE SCH (09:50)
[2019-06-27] MEDS: BRIMONIDINE 0.2% OPHTH DROPS 5ML EACHEYE SCH (09:50)
[2019-06-27] MEDS: FINASTERIDE 5MG TABLET PO SCH (09:50)
[2019-06-27] MEDS: ASPIRIN 81MG EC TABLET PO SCH (09:50)
[2019-06-27] MEDS: METFORMIN HCL 500MG TABLET PO SCH (09:50)
[2019-06-27] MEDS: APIXABAN 5 MG TABLET PO SCH (09:50)
[2019-06-27 12:00] VITALS: BP 110/72
== END 2019-06-27 15:03 | disposition home or self-care (01) | DRG 313 ==
LOC: ER 08:36 → SUPCPDRO 12:34 → EDBEDREQ 12:52 → ENRESERV 14:39 → 6WST 16:10 → 6EST 06-27 12:04
PROVIDERS: ADMIT Internal Medicine; ATTEND Internal Medicine
DX: R07.89 Other chest pain (principal); R00.2 Palpitations; E11.9 Type 2 diabetes mellitus without complications; E78.5 Hyperlipidemia, unspecified; I10 Essential (primary) hypertension; D64.9 Anemia, unspecified; Z86.711 Personal history of pulmonary embolism; Z95.0 Presence of cardiac pacemaker; Z76.5 Malingerer [conscious simulation]; Z82.49 Family history of ischemic heart disease and other diseases of the circulatory system; Z88.6 Allergy status to analgesic agent; Z91.041 Radiographic dye allergy status; Z91.013 Allergy to seafood; Z91.018 Allergy to other foods; Z79.01 Long term (current) use of anticoagulants
CPT/HCPCS: 36415; 71045; 80048; 80053; 80061; 82962; 83036; 83735; 83880; 84100; 84484; 85025; 85379; 93005; 99285; J1650; J1815

== ENCOUNTER 2019-07-04 21:08 | Emergency (ER) | payer MEDICARE, MEDICAID ==
[~2019-07-04] VITALS: Ht 172.7 cm; Wt 89.0 kg
[~2019-07-04 21:08] MED LIST changes: +APIX5TAB MT; +FINA5TAB3 PO
[2019-07-04 23:06] LABS: BASOPHILS % 0.6 % (0.0-2.0); EOSINOPHILS % 2.4 % (0.0-5.0); HEMATOCRIT. 36.7 % (42.0-52.0); HEMOGLOBIN. 12.2 g/dL (14.0-18.0); LYMPHOCYTES % 18.7 % (20.0-50.0); MEAN CORPUSCULAR HEMOGLOBIN 27.2 pg (28.0-32.0); MEAN CORPUSCULAR VOLUME 82.1 fL (80.0-94.0); MONOCYTES % 10.5 % (2.0-8.0); NEUTROPHILS % 67.8 % (40.0-76.0); PLATELET 178 x1000/uL (130-400); RED BLOOD CELL COUNT 4.47 mill/uL (4.7-6.1); RED CELL DISTRIBUTION WIDTH 16.7 % (11.6-14.6)
[2019-07-04 23:12] LABS: CHLORIDE 107 mEq/L (98-107)
[2019-07-04 23:14] LABS: PROTHROMBIN TIME 10.7 sec (9.6-11.0)
[2019-07-05] MEDS ORDERED: ASPIRIN 81MG TABLET PO ONE (01:15)
[2019-07-05 08:59] VITALS: BP 119/65
== END 2019-07-05 11:27 | disposition left against medical advice (07) ==
LOC: ER 21:08 → CANBEDREQ 07-05 21:14
DX: R07.89 Other chest pain (principal); R79.9 Abnormal finding of blood chemistry, unspecified; R42 Dizziness and giddiness; E11.9 Type 2 diabetes mellitus without complications; Z95.0 Presence of cardiac pacemaker; H40.9 Unspecified glaucoma; Z88.8 Allergy status to other drugs, medicaments and biological substances; Z79.899 Other long term (current) drug therapy; Z79.01 Long term (current) use of anticoagulants; Z79.82 Long term (current) use of aspirin; Z79.84 Long term (current) use of oral hypoglycemic drugs
CPT/HCPCS: 36415; 71045; 80053; 84484; 85025; 93005; 99285

== ENCOUNTER 2019-08-02 14:36 | Emergency (ER) | payer MEDICARE, MEDICAID ==
[~2019-08-02] VITALS: Ht 172.7 cm; Wt 93.0 kg
[2019-08-02] MEDS ORDERED: ONDANSETRON HCL 4MG/2ML INJ IV STA (14:56)
[2019-08-02] MEDS ORDERED: MAGNESIUM/ALUMINUM HYDROXIDE/SIMETHICONE 30ML UDC PO ONE (15:00)
[2019-08-02] MEDS ORDERED: ASPIRIN 81MG TABLET PO ONE (15:00)
[2019-08-02] MEDS ORDERED: VISCOUS LIDOCAINE 2% 15 ML UDC PO ONE (15:00)
[2019-08-02 15:54] LABS: HEMATOCRIT. 38.8 % (42.0-52.0); HEMOGLOBIN. 12.3 g/dL (14.0-18.0); MEAN CORPUSCULAR HEMOGLOBIN 26.2 pg (28.0-32.0); MEAN CORPUSCULAR VOLUME 82.3 fL (80.0-94.0); MEAN PLATELET VOLUME 9.9 fl (7.4-10.4); PLATELET 132 x1000/uL (130-400); RED BLOOD CELL COUNT 4.71 mill/uL (4.7-6.1); RED CELL DISTRIBUTION WIDTH 16.7 % (11.6-14.6)
[2019-08-02 15:57] LABS: CHLORIDE 107 mEq/L (98-107)
[2019-08-02 16:00] VITALS: BP 125/77
[2019-08-02] MEDS ORDERED: KETOROLAC 60MG/2ML VIAL IM ONE (16:00)
[2019-08-02 16:21] LABS: CLARITY URINE CLEAR (CLEAR); COLOR URINE YELLOW (YELLOW); KETONES URINE 2+ (NEGATIVE); LEUKOCYTE ESTERASE URINE 2+ (NEGATIVE); NITRITE URINE NEGATIVE (NEGATIVE); OCCULT BLOOD URINE NEGATIVE (NEGATIVE); PH URINE 5.5 (4.5-8.0); PROTEIN URINE TRACE (NEGATIVE); UROBILINOGEN URINE 0.2 E.U./dL (0.2-1.0)
[2019-08-02] MEDS ORDERED: CEFTRIAXONE 1 G PREMIX 50 ML IV NR (17:00)
[2019-08-02] MEDS ORDERED: CEFTRIAXONE SODIUM 250 MG/VIAL IM ONE ×2 (17:15→17:45)
[2019-08-02 17:24] LABS: PLATELET ESTIMATE NORMAL
== END 2019-08-02 17:48 | disposition home or self-care (01) ==
LOC: ER 14:36
DX: R07.89 Other chest pain (principal); N39.0 Urinary tract infection, site not specified; R03.0 Elevated blood-pressure reading, without diagnosis of hypertension; E11.9 Type 2 diabetes mellitus without complications; Z79.84 Long term (current) use of oral hypoglycemic drugs; Z95.0 Presence of cardiac pacemaker; Z86.711 Personal history of pulmonary embolism; Z79.899 Other long term (current) drug therapy
CPT/HCPCS: 36415; 71045; 80053; 81003; 83880; 84484; 85025; 87086; 93005; 96372; 96374; 99285; J0696; J1885; J2405

== ENCOUNTER 2019-09-25 20:08 | Emergency (ER) | payer MEDICARE, MEDICAID ==
[~2019-09-25] VITALS: Ht 172.7 cm; Wt 93.0 kg
[2019-09-25] MEDS ORDERED: VISCOUS LIDOCAINE 2% 15 ML UDC PO ONE (21:00)
[2019-09-25] MEDS ORDERED: MAGNESIUM/ALUMINUM HYDROXIDE/SIMETHICONE 30ML UDC PO ONE (21:00)
[2019-09-25] MEDS ORDERED: ASPIRIN 81MG TABLET PO ONE (21:00)
[2019-09-25 21:44] LABS: CHLORIDE 110 mEq/L (98-107)
[2019-09-25 21:49] LABS: BASOPHILS % 0.6 % (0.0-2.0); EOSINOPHILS % 2.9 % (0.0-5.0); HEMATOCRIT. 36.9 % (42.0-52.0); HEMOGLOBIN. 11.8 g/dL (14.0-18.0); LYMPHOCYTES % 21.4 % (20.0-50.0); MEAN CORPUSCULAR HEMOGLOBIN 25.7 pg (28.0-32.0); MEAN CORPUSCULAR VOLUME 80.7 fL (80.0-94.0); MEAN PLATELET VOLUME 9.5 fl (7.4-10.4); MONOCYTES % 12.5 % (2.0-8.0); NEUTROPHILS % 62.6 % (40.0-76.0); PLATELET 208 x1000/uL (130-400); RED BLOOD CELL COUNT 4.58 mill/uL (4.7-6.1); RED CELL DISTRIBUTION WIDTH 17.9 % (11.6-14.6)
[2019-09-25 22:02] LABS: PARTIAL THROMBOPLASTIN TIME 27.8 sec (23.4-31.0); PROTHROMBIN TIME 10.6 sec (9.6-11.0)
[2019-09-26 00:44] VITALS: BP 126/64
== END 2019-09-26 00:45 | disposition home or self-care (01) ==
LOC: ER 20:08 → EDBEDREQ 09-26 00:14 → ER 09-26 00:45 → CANBEDREQ 09-26 03:48
DX: R07.89 Other chest pain (principal); R06.02 Shortness of breath; E11.9 Type 2 diabetes mellitus without complications; E78.00 Pure hypercholesterolemia, unspecified; Z95.0 Presence of cardiac pacemaker; Z79.899 Other long term (current) drug therapy; Z91.040 Latex allergy status
CPT/HCPCS: 36415; 71045; 80053; 83880; 84484; 85025; 93005; 99285

== ENCOUNTER 2019-10-03 00:03 | Emergency (ER) | payer MEDICARE, MEDICAID ==
[~2019-10-03] VITALS: Ht 172.7 cm; Wt 91.0 kg
[2019-10-03 00:05] VITALS: BP 122/84
== END 2019-10-03 01:29 | disposition left against medical advice (07) ==
LOC: ER 00:03
DX: R07.89 Other chest pain (principal); Z53.21 Procedure and treatment not carried out due to patient leaving prior to being seen by health care provider
CPT/HCPCS: 93005

== ENCOUNTER 2019-12-29 17:12 | Inpatient (IN) | payer MEDICARE, MEDICAID ==
[~2019-12-29] VITALS: Ht 172.7 cm; Wt 88.0 kg
[~2019-12-29 17:12] MED LIST changes: -APIX5TAB MT
[2019-12-29] MEDS ORDERED: MAGNESIUM/ALUMINUM HYDROXIDE/SIMETHICONE 30ML UDC PO ONE (18:00)
[2019-12-29] MEDS ORDERED: VISCOUS LIDOCAINE 2% 15 ML UDC PO ONE (18:00)
[2019-12-29] MEDS ORDERED: ASPIRIN 81MG TABLET PO ONE (18:00)
[2019-12-29] MEDS ORDERED: NITROGLYCERIN 0.4MG TABLET SL SL PRN (18:00)
[2019-12-29 18:35] LABS: BASOPHILS % 0.7 % (0.0-2.0); EOSINOPHILS % 4.5 % (0.0-5.0); HEMATOCRIT. 32.3 % (42.0-52.0); HEMOGLOBIN. 10.2 g/dL (14.0-18.0); LYMPHOCYTES % 19.2 % (20.0-50.0); MEAN CORPUSCULAR HEMOGLOBIN 24.8 pg (28.0-32.0); MEAN CORPUSCULAR VOLUME 78.4 fL (80.0-94.0); MEAN PLATELET VOLUME 9.3 fl (7.4-10.4); MONOCYTES % 10.9 % (2.0-8.0); NEUTROPHILS % 64.7 % (40.0-76.0); PLATELET 188 x1000/uL (130-400); RED BLOOD CELL COUNT 4.12 mill/uL (4.7-6.1); RED CELL DISTRIBUTION WIDTH 17.1 % (11.6-14.6)
[2019-12-29 18:41] LABS: CHLORIDE 111 mEq/L (98-107)
[2019-12-30 01:47] VITALS: BP 122/71
[2019-12-30] MEDS ORDERED: DEXTROSE 50% WATER 50ML SYRINGE IV PRN (02:45)
[2019-12-30 06:04] LABS: CHLORIDE 109 mEq/L (98-107)
[2019-12-30 06:20] LABS: CREATINE KINASE 85 IU/L (39-308)
[2019-12-30 06:24] LABS: CREATINE KINASE MB FRACTION 1.5 ng/mL (0.5-3.6)
[2019-12-30 06:26] LABS: BASOPHILS % 0.5 % (0.0-2.0); EOSINOPHILS % 4.1 % (0.0-5.0); HEMATOCRIT. 31.7 % (42.0-52.0); LYMPHOCYTES % 15.7 % (20.0-50.0); MEAN CORPUSCULAR HEMOGLOBIN 24.6 pg (28.0-32.0); MEAN PLATELET VOLUME 9.8 fl (7.4-10.4); MONOCYTES % 11.3 % (2.0-8.0); NEUTROPHILS % 68.4 % (40.0-76.0); PLATELET 168 x1000/uL (130-400); RED BLOOD CELL COUNT 4.07 mill/uL (4.7-6.1); RED CELL DISTRIBUTION WIDTH 17.2 % (11.6-14.6)
[2019-12-30] MEDS: BLOOD SUGAR DIAGNOSTIC STRIP TEST SCH ×4 (06:28→21:00)
[2019-12-30] MEDS: INSULIN LISPRO 100 UNITS/ML SUBCUT SCH ×4 (06:33→21:00)
[2019-12-30 08:00] VITALS: BP 118/68
[2019-12-30] MEDS: ASPIRIN 81MG EC TABLET PO SCH (08:59)
[2019-12-30] MEDS: APIXABAN 5 MG TABLET PO SCH ×2 (08:59→16:53)
[2019-12-30] MEDS: BRIMONIDINE 0.2% OPHTH DROPS 5ML EACHEYE SCH ×2 (09:00→16:50)
[2019-12-30] MEDS: DORZOLAM/TIMOLOL 2.23/0.68% OPHTH DROPS 10ML EACHEYE SCH ×2 (09:00→16:50)
[2019-12-30] MEDS: METFORMIN HCL 500MG TABLET PO SCH ×2 (09:00→16:50)
[2019-12-30] MEDS ORDERED: DORZOLAM/TIMOLOL 2.23/0.68% OPHTH DROPS 10ML BOTHEYE SCH (09:00)
[2019-12-30] MEDS: FINASTERIDE 5MG TABLET PO SCH (09:00)
[2019-12-30 12:00] VITALS: BP 115/59
[2019-12-30 12:24] LABS: CREATINE KINASE 80 IU/L (39-308)
[2019-12-30 12:25] LABS: CREATINE KINASE MB FRACTION 1.1 ng/mL (0.5-3.6)
[2019-12-30 16:00] VITALS: BP 114/68
[2019-12-30 20:00] VITALS: BP 105/73
[2019-12-30] MEDS: TAMSULOSIN HCL 0.4MG SR CAPSULE PO SCH (20:48)
[2019-12-30] MEDS: ATORVASTATIN CALCIUM 10MG TABLET PO SCH (20:48)
[2019-12-30] MEDS: LATANOPROST 0.005% OPHTH DROPS 2.5ML BOTHEYE SCH (20:48)
[2019-12-30] MEDS ORDERED: MEDICATION NOT ON FORMULARY EA (Travoprost (Travatan Z) 1 DROP) EACHEYE SCH (21:00)
[2019-12-30] MEDS: ACETAMINOPHEN 325MG TABLET PO PRN (21:30)
[2019-12-31] MEDS: ACETAMINOPHEN 325MG TABLET PO PRN ×3 (05:58→22:21)
[2019-12-31 06:06] LABS: BASOPHILS % 0.6 % (0.0-2.0); EOSINOPHILS % 3.2 % (0.0-5.0); HEMATOCRIT. 31.1 % (42.0-52.0); LYMPHOCYTES % 17.6 % (20.0-50.0); MEAN CORPUSCULAR HEMOGLOBIN 24.9 pg (28.0-32.0); MEAN CORPUSCULAR VOLUME 77.5 fL (80.0-94.0); MEAN PLATELET VOLUME 9.2 fl (7.4-10.4); MONOCYTES % 10.2 % (2.0-8.0); NEUTROPHILS % 68.4 % (40.0-76.0); PLATELET 164 x1000/uL (130-400); RED BLOOD CELL COUNT 4.02 mill/uL (4.7-6.1); RED CELL DISTRIBUTION WIDTH 17.2 % (11.6-14.6)
[2019-12-31] MEDS: INSULIN LISPRO 100 UNITS/ML SUBCUT SCH ×4 (06:07→20:02)
[2019-12-31 06:35] LABS: CHLORIDE 110 mEq/L (98-107)
[2019-12-31] MEDS: BLOOD SUGAR DIAGNOSTIC STRIP TEST SCH ×4 (07:24→20:01)
[2019-12-31 08:00] VITALS: BP 114/60
[2019-12-31] MEDS: METFORMIN HCL 500MG TABLET PO SCH ×2 (09:07→17:48)
[2019-12-31] MEDS: APIXABAN 5 MG TABLET PO SCH ×2 (09:07→17:48)
[2019-12-31] MEDS: FINASTERIDE 5MG TABLET PO SCH (09:07)
[2019-12-31] MEDS: ASPIRIN 81MG EC TABLET PO SCH (09:08)
[2019-12-31] MEDS: BRIMONIDINE 0.2% OPHTH DROPS 5ML EACHEYE SCH ×2 (09:09→17:49)
[2019-12-31] MEDS: DORZOLAM/TIMOLOL 2.23/0.68% OPHTH DROPS 10ML EACHEYE SCH ×2 (09:09→17:49)
[2019-12-31 12:00] VITALS: BP 110/52
[2019-12-31 16:00] VITALS: BP 116/64
[2019-12-31 20:00] VITALS: BP 113/64
[2019-12-31] MEDS: LATANOPROST 0.005% OPHTH DROPS 2.5ML BOTHEYE SCH (20:01)
[2019-12-31] MEDS: ATORVASTATIN CALCIUM 10MG TABLET PO SCH (20:02)
[2019-12-31] MEDS: TAMSULOSIN HCL 0.4MG SR CAPSULE PO SCH (20:02)
[2020-01-01] VITALS: BP 113/68
[2020-01-01 04:00] VITALS: BP 114/62
[2020-01-01] MEDS: ACETAMINOPHEN 325MG TABLET PO PRN ×2 (04:24→13:40)
[2020-01-01] MEDS: BLOOD SUGAR DIAGNOSTIC STRIP TEST SCH ×4 (05:30→21:14)
[2020-01-01] MEDS: INSULIN LISPRO 100 UNITS/ML SUBCUT SCH ×4 (05:31→21:00)
[2020-01-01] MEDS: FINASTERIDE 5MG TABLET PO SCH (07:55)
[2020-01-01] MEDS: BRIMONIDINE 0.2% OPHTH DROPS 5ML EACHEYE SCH ×2 (07:56→17:42)
[2020-01-01] MEDS: METFORMIN HCL 500MG TABLET PO SCH ×2 (07:56→17:42)
[2020-01-01] MEDS: DORZOLAM/TIMOLOL 2.23/0.68% OPHTH DROPS 10ML EACHEYE SCH ×2 (07:56→17:42)
[2020-01-01] MEDS: ASPIRIN 81MG EC TABLET PO SCH (07:56)
[2020-01-01] MEDS: APIXABAN 5 MG TABLET PO SCH ×2 (07:56→17:42)
[2020-01-01 08:00] VITALS: BP 100/61
[2020-01-01 12:00] VITALS: BP 109/60
[2020-01-01 16:00] VITALS: BP 98/58
[2020-01-01 20:00] VITALS: BP 106/55
[2020-01-01] MEDS: TAMSULOSIN HCL 0.4MG SR CAPSULE PO SCH (21:13)
[2020-01-01] MEDS: ATORVASTATIN CALCIUM 10MG TABLET PO SCH (21:13)
[2020-01-01] MEDS: LATANOPROST 0.005% OPHTH DROPS 2.5ML BOTHEYE SCH (21:18)
[2020-01-02] VITALS: BP 103/53
[2020-01-02] MEDS: INSULIN LISPRO 100 UNITS/ML SUBCUT SCH (06:26)
[2020-01-02] MEDS: BLOOD SUGAR DIAGNOSTIC STRIP TEST SCH (06:26)
[2020-01-02 08:00] VITALS: BP 125/77
[2020-01-02] MEDS: ASPIRIN 81MG EC TABLET PO SCH (09:21)
[2020-01-02] MEDS: APIXABAN 5 MG TABLET PO SCH (09:21)
[2020-01-02] MEDS: BRIMONIDINE 0.2% OPHTH DROPS 5ML EACHEYE SCH (09:21)
[2020-01-02] MEDS: METFORMIN HCL 500MG TABLET PO SCH (09:21)
[2020-01-02] MEDS: FINASTERIDE 5MG TABLET PO SCH (09:21)
[2020-01-02] MEDS: DORZOLAM/TIMOLOL 2.23/0.68% OPHTH DROPS 10ML EACHEYE SCH (09:21)
[2020-01-02 10:40] VITALS: BP 125/77
== END 2020-01-02 10:45 | disposition home or self-care (01) | DRG 203 ==
LOC: ER 17:12 → 8WST 23:16 → ENRESERV 23:59
PROVIDERS: ADMIT Hospitalist; ATTEND Hospitalist
PROC: 4B02XSZ Measurement of Cardiac Pacemaker, External Approach (ICD-10-PCS; principal; 2019-12-30)
DX: M94.0 Chondrocostal junction syndrome [Tietze] (principal); I25.10 Atherosclerotic heart disease of native coronary artery without angina pectoris; E11.9 Type 2 diabetes mellitus without complications; E78.00 Pure hypercholesterolemia, unspecified; E78.5 Hyperlipidemia, unspecified; G89.4 Chronic pain syndrome; N40.0 Benign prostatic hyperplasia without lower urinary tract symptoms; W06.XXXA Fall from bed, initial encounter; I10 Essential (primary) hypertension; I49.5 Sick sinus syndrome; D68.59 Other primary thrombophilia; Z91.041 Radiographic dye allergy status; Z88.5 Allergy status to narcotic agent; Z91.013 Allergy to seafood; Z91.018 Allergy to other foods; Z79.82 Long term (current) use of aspirin; Z79.84 Long term (current) use of oral hypoglycemic drugs; Z79.899 Other long term (current) drug therapy; Z82.49 Family history of ischemic heart disease and other diseases of the circulatory system; Z86.711 Personal history of pulmonary embolism; Z95.0 Presence of cardiac pacemaker; Z79.01 Long term (current) use of anticoagulants; Y93.89 Activity, other specified; Y92.89 Other specified places as the place of occurrence of the external cause; Y99.8 Other external cause status; E87.8 Other disorders of electrolyte and fluid balance, not elsewhere classified; H40.9 Unspecified glaucoma
CPT/HCPCS: 36415; 71045; 80048; 80053; 82550; 82553; 82962; 83036; 83880; 84484; 85025; 93005; 99285; C1893; J1815

== ENCOUNTER 2020-01-13 02:55 | Emergency (ER) | payer MEDICARE, MEDICAID ==
[~2020-01-13] VITALS: Ht 170.2 cm; Wt 88.0 kg
[2020-01-13 03:01] VITALS: BP 136/96
[2020-01-13] MEDS ORDERED: ASPIRIN 81MG TABLET PO ONE (03:30)
== END 2020-01-13 03:50 | disposition home or self-care (01) ==
LOC: ER 02:55
DX: R07.89 Other chest pain (principal); R46.2 Strange and inexplicable behavior; I10 Essential (primary) hypertension; E11.9 Type 2 diabetes mellitus without complications
CPT/HCPCS: 93005; 99283

== ENCOUNTER 2020-01-31 17:47 | Inpatient (IN) | payer MEDICARE, MEDICAID ==
[~2020-01-31] VITALS: Ht 172.7 cm; Wt 88.5 kg
[2020-01-31 22:07] LABS: BASOPHILS % 0.7 % (0.0-2.0); EOSINOPHILS % 2.3 % (0.0-5.0); HEMATOCRIT. 34.3 % (42.0-52.0); HEMOGLOBIN. 10.8 g/dL (14.0-18.0); LYMPHOCYTES % 15.1 % (20.0-50.0); MEAN CORPUSCULAR HEMOGLOBIN 24.1 pg (28.0-32.0); MEAN CORPUSCULAR VOLUME 76.6 fL (80.0-94.0); MEAN PLATELET VOLUME 10.2 fl (7.4-10.4); MONOCYTES % 8.8 % (2.0-8.0); NEUTROPHILS % 73.1 % (40.0-76.0); PLATELET 190 x1000/uL (130-400); RED BLOOD CELL COUNT 4.48 mill/uL (4.7-6.1); RED CELL DISTRIBUTION WIDTH 16.9 % (11.6-14.6)
[2020-01-31 22:11] LABS: CHLORIDE 109 mEq/L (98-107)
[2020-02-01 01:20] VITALS: BP 114/83
[2020-02-01] MEDS ORDERED: DEXTROSE 50% WATER 50ML SYRINGE IV PRN ×2 (03:15)
[2020-02-01] MEDS ORDERED: MORPHINE SULFATE 2 MG/ML CPJ (NOT FOR IM USE) IV PRN ×2 (03:15→11:30)
[2020-02-01 04:00] VITALS: BP 105/56
[2020-02-01] MEDS: BLOOD SUGAR DIAGNOSTIC STRIP TEST SCH ×2 (06:30→12:46)
[2020-02-01] MEDS: INSULIN LISPRO 100 UNITS/ML SUBCUT SCH ×2 (06:33→12:40)
[2020-02-01 08:00] VITALS: BP 113/64
[2020-02-01] MEDS: METOPROLOL TARTRATE 50MG TABLET PO SCH ×2 (09:00→09:28)
[2020-02-01] MEDS ORDERED: ASPIRIN 81MG TABLET PO SCH (09:00)
[2020-02-01] MEDS ORDERED: METF-415 PO (10:39)
[2020-02-01] MEDS ORDERED: ENOXAPARIN 100MG/ML SYR SUBCUT SCH (11:00)
[2020-02-01 11:44] LABS: HEMATOCRIT 31.8 % (42.0-52.0); MEAN CORPUSCULAR HEMOGLOBIN 24.3 pg (28.0-32.0); MEAN CORPUSCULAR VOLUME 77.1 fL (80.0-94.0); PLATELET 162 x1000/uL (130-400); RED BLOOD CELL COUNT 4.12 mill/uL (4.7-6.1)
[2020-02-01 12:00] VITALS: BP 116/65
[2020-02-01 12:24] LABS: CHLORIDE 111 mEq/L (98-107)
[2020-02-01 12:30] LABS: LDL CHOLESTEROL 58 mg/dL (5-100)
[2020-02-01] MEDS ORDERED: TRAMADOL 50MG TABLET PO PRN (12:30)
[2020-02-01 12:33] LABS: HDL CHOLESTEROL 41 mg/dL (40-59)
[2020-02-01] MEDS ORDERED: APIXABAN 5 MG TABLET PO SCH (13:00)
[2020-02-01 14:30] VITALS: BP 116/65
[2020-02-01] MEDS ORDERED: DORZOLAM/TIMOLOL 2.23/0.68% OPHTH DROPS 10ML BOTHEYE SCH (17:00)
[2020-02-01] MEDS ORDERED: DORZOLAM/TIMOLOL 2.23/0.68% OPHTH DROPS 10ML EACHEYE SCH (17:00)
[2020-02-01] MEDS ORDERED: BRIMONIDINE 0.2% OPHTH DROPS 5ML EACHEYE SCH (17:00)
[2020-02-01] MEDS ORDERED: METFORMIN HCL 500MG TABLET PO SCH (17:40)
[2020-02-01] MEDS ORDERED: ATORVASTATIN CALCIUM 40MG TABLET PO SCH (21:00)
[2020-02-01] MEDS ORDERED: TAMSULOSIN HCL 0.4MG SR CAPSULE PO SCH ×2 (21:00)
[2020-02-02] MEDS ORDERED: ATORVASTATIN CALCIUM 10MG TABLET PO SCH (09:00)
[2020-02-02] MEDS ORDERED: ASPIRIN 81MG EC TABLET PO SCH (09:00)
[2020-02-02] MEDS ORDERED: FINASTERIDE 5MG TABLET PO SCH ×2 (09:00)
== END 2020-02-01 15:07 | disposition home or self-care (01) | DRG 203 ==
LOC: ER 17:47 → ENRESERV 23:43 → 8WST 02-01 01:39
PROVIDERS: ADMIT Internal Medicine; ATTEND Internal Medicine
DX: M94.0 Chondrocostal junction syndrome [Tietze] (principal); E78.00 Pure hypercholesterolemia, unspecified; M54.2 Cervicalgia; E11.9 Type 2 diabetes mellitus without complications; F17.200 Nicotine dependence, unspecified, uncomplicated; E87.8 Other disorders of electrolyte and fluid balance, not elsewhere classified; D64.9 Anemia, unspecified; E78.5 Hyperlipidemia, unspecified; I49.5 Sick sinus syndrome; N40.0 Benign prostatic hyperplasia without lower urinary tract symptoms; Z86.711 Personal history of pulmonary embolism; Z88.5 Allergy status to narcotic agent; Z91.013 Allergy to seafood; Z79.82 Long term (current) use of aspirin; Z79.899 Other long term (current) drug therapy; Z79.01 Long term (current) use of anticoagulants; Z82.49 Family history of ischemic heart disease and other diseases of the circulatory system; Z76.5 Malingerer [conscious simulation]; Z95.0 Presence of cardiac pacemaker; Z79.4 Long term (current) use of insulin; I11.0 Hypertensive heart disease with heart failure; I50.42 Chronic combined systolic (congestive) and diastolic (congestive) heart failure; I36.1 Nonrheumatic tricuspid (valve) insufficiency
CPT/HCPCS: 36415; 71045; 80048; 80053; 80061; 82962; 83036; 83880; 84484; 85025; 85027; 85379; 93005; 99285; J1815; J2270

== ENCOUNTER 2020-05-02 23:16 | Emergency (ER) | payer MEDICARE, MEDICAID ==
[~2020-05-02] VITALS: Ht 172.7 cm; Wt 89.0 kg
[~2020-05-02 23:16] MED LIST changes: -ASPI-1158 PO; +ASPI-1406 PO; -METF-414 PO; +METF-415 PO
[2020-05-03] MEDS ORDERED: NITROGLYCERIN 0.4MG TABLET SL SL ONE
[2020-05-03] MEDS ORDERED: ASPIRIN 325MG EC TABLET PO ONE
[2020-05-03 01:01] LABS: EOSINOPHILS % 3.7 % (0.0-5.0); HEMATOCRIT. 37.9 % (42.0-52.0); HEMOGLOBIN. 11.5 g/dL (14.0-18.0); LYMPHOCYTES % 22.9 % (20.0-50.0); MEAN CORPUSCULAR HEMOGLOBIN 23.9 pg (28.0-32.0); MEAN CORPUSCULAR VOLUME 79.1 fL (80.0-94.0); MEAN PLATELET VOLUME 10.1 fl (7.4-10.4); MONOCYTES % 11.9 % (2.0-8.0); NEUTROPHILS % 60.5 % (40.0-76.0); PLATELET 251 x1000/uL (130-400); RED CELL DISTRIBUTION WIDTH 20.1 % (11.6-14.6)
[2020-05-03 01:11] LABS: CHLORIDE 106 mEq/L (98-107)
[2020-05-03 07:17] VITALS: BP 122/75
[2020-05-03 07:19] LABS: BASOPHILS % 0.8 % (0.0-2.0); EOSINOPHILS % 3.2 % (0.0-5.0); HEMATOCRIT. 34.8 % (42.0-52.0); HEMOGLOBIN. 10.6 g/dL (14.0-18.0); LYMPHOCYTES % 19.6 % (20.0-50.0); MEAN CORPUSCULAR HEMOGLOBIN 23.9 pg (28.0-32.0); MEAN CORPUSCULAR VOLUME 78.5 fL (80.0-94.0); MEAN PLATELET VOLUME 9.4 fl (7.4-10.4); MONOCYTES % 12.7 % (2.0-8.0); NEUTROPHILS % 63.7 % (40.0-76.0); PLATELET 179 x1000/uL (130-400); RED BLOOD CELL COUNT 4.44 mill/uL (4.7-6.1); RED CELL DISTRIBUTION WIDTH 19.5 % (11.6-14.6)
[2020-05-03 07:21] LABS: CHLORIDE 110 mEq/L (98-107)
== END 2020-05-03 10:00 | disposition home or self-care (01) ==
LOC: ER 23:16 → EDBEDREQ 05-03 02:14 → EDBEDREQTM 05-03 02:14 → ENRESERV 05-03 07:35 → CANRESERV 05-03 07:35 → CANBEDREQ 05-03 09:49 → ER 05-03 10:00
DX: R07.89 Other chest pain (principal); D64.9 Anemia, unspecified; E11.65 Type 2 diabetes mellitus with hyperglycemia; I10 Essential (primary) hypertension; Z76.5 Malingerer [conscious simulation]; E78.5 Hyperlipidemia, unspecified; N40.0 Benign prostatic hyperplasia without lower urinary tract symptoms; Z88.5 Allergy status to narcotic agent; Z88.8 Allergy status to other drugs, medicaments and biological substances; Z82.49 Family history of ischemic heart disease and other diseases of the circulatory system; Z82.3 Family history of stroke; Z79.4 Long term (current) use of insulin; Z79.01 Long term (current) use of anticoagulants; Z86.711 Personal history of pulmonary embolism; Z95.0 Presence of cardiac pacemaker; Z79.899 Other long term (current) drug therapy; Z20.822 Contact with and (suspected) exposure to COVID-19
CPT/HCPCS: 36415; 71045; 80048; 80053; 83735; 83880; 84484; 85025; 87426; 93005; 99285; Z7610

== ENCOUNTER 2020-05-25 21:24 | Emergency (ER) | payer MEDICARE, MEDICAID ==
[~2020-05-25] VITALS: Ht 172.7 cm; Wt 89.0 kg
[~2020-05-25 21:24] MED LIST changes: -FINA5TAB3 PO
[2020-05-25] MEDS ORDERED: ASPIRIN 81MG TABLET PO ONE (22:30)
[2020-05-25 23:27] LABS: BASOPHILS % 0.6 % (0.0-2.0); EOSINOPHILS % 1.9 % (0.0-5.0); HEMATOCRIT. 32.9 % (42.0-52.0); HEMOGLOBIN. 10.6 g/dL (14.0-18.0); LYMPHOCYTES % 15.6 % (20.0-50.0); MEAN CORPUSCULAR VOLUME 80.5 fL (80.0-94.0); MEAN PLATELET VOLUME 9.2 fl (7.4-10.4); MONOCYTES % 9.1 % (2.0-8.0); NEUTROPHILS % 72.8 % (40.0-76.0); PLATELET 164 x1000/uL (130-400); RED BLOOD CELL COUNT 4.09 mill/uL (4.7-6.1); RED CELL DISTRIBUTION WIDTH 21.4 % (11.6-14.6)
[2020-05-25 23:32] LABS: CHLORIDE 114 mEq/L (98-107)
[2020-05-25 23:34] LABS: INR 1.1; PARTIAL THROMBOPLASTIN TIME 34.5 sec (23.4-31.0); PROTHROMBIN TIME 11.7 sec (9.6-11.0)
[2020-05-26] MEDS ORDERED: ACETAMINOPHEN 325MG TABLET PO ONE ×2 (01:15→03:45)
[2020-05-26 03:57] VITALS: BP 121/74
[2020-05-27] MEDS ORDERED: ACET-2708 MT (21:14)
== END 2020-05-26 04:17 | disposition home or self-care (01) ==
LOC: ER 21:24
DX: R07.89 Other chest pain (principal); F17.200 Nicotine dependence, unspecified, uncomplicated; E11.9 Type 2 diabetes mellitus without complications; Z88.5 Allergy status to narcotic agent; Z88.8 Allergy status to other drugs, medicaments and biological substances; Z91.041 Radiographic dye allergy status; Z91.013 Allergy to seafood; Z79.899 Other long term (current) drug therapy
CPT/HCPCS: 36415; 71045; 80053; 83880; 84484; 85025; 85610; 85730; 93005; 99285; Z7610

== ENCOUNTER 2020-05-27 16:33 | Emergency (ER) | payer MEDICARE, MEDICAID ==
[~2020-05-27] VITALS: Ht 172.7 cm; Wt 89.0 kg
[2020-05-27] MEDS ORDERED: ASPIRIN 81MG TABLET PO ONE (17:45)
[2020-05-27 18:38] LABS: BASOPHILS % 0.4 % (0.0-2.0); EOSINOPHILS % 2.3 % (0.0-5.0); HEMATOCRIT. 31.5 % (42.0-52.0); HEMOGLOBIN. 9.9 g/dL (14.0-18.0); LYMPHOCYTES % 19.1 % (20.0-50.0); MEAN CORPUSCULAR HEMOGLOBIN 25.7 pg (28.0-32.0); MEAN CORPUSCULAR VOLUME 81.7 fL (80.0-94.0); MEAN PLATELET VOLUME 9.5 fl (7.4-10.4); MONOCYTES % 10.6 % (2.0-8.0); NEUTROPHILS % 67.6 % (40.0-76.0); PLATELET 167 x1000/uL (130-400); RED BLOOD CELL COUNT 3.85 mill/uL (4.7-6.1)
[2020-05-27 18:42] LABS: CHLORIDE 112 mEq/L (98-107)
[2020-05-27 19:31] LABS: PLATELET ESTIMATE NORMAL
[2020-05-27] MEDS ORDERED: MORPHINE SULFATE 4 MG/ML CPJ (NOT FOR IM USE) IV ONE (19:45)
[2020-05-27] MEDS ORDERED: ACET-2708 MT (21:14)
[2020-05-27 22:23] VITALS: BP 116/67
== END 2020-05-27 22:32 | disposition home or self-care (01) ==
LOC: ER 16:33 → EDBEDREQ 20:39 → ER 22:32 → CANBEDREQ 23:47
DX: R07.89 Other chest pain (principal); I10 Essential (primary) hypertension; E11.9 Type 2 diabetes mellitus without complications; Z86.711 Personal history of pulmonary embolism; Z79.01 Long term (current) use of anticoagulants; Z79.82 Long term (current) use of aspirin; Z79.84 Long term (current) use of oral hypoglycemic drugs; Z79.899 Other long term (current) drug therapy; Z88.8 Allergy status to other drugs, medicaments and biological substances; Z91.041 Radiographic dye allergy status; Z91.013 Allergy to seafood; Z91.018 Allergy to other foods
CPT/HCPCS: 36415; 71045; 80053; 83880; 84484; 85025; 93005; 96374; 99285; J2270; Z7610

== ENCOUNTER 2020-06-30 17:20 | Emergency (ER) | payer MEDICARE, MEDICAID ==
[~2020-06-30] VITALS: Ht 172.7 cm; Wt 89.1 kg
[~2020-06-30 17:20] MED LIST changes: +ACET-2708 MT; +APIX5TAB MT; +ASCO-316 PO; +ATOR10TA MT; +CYAN50008 MT; +FERR-71 MT; +FINA5TAB3 PO; +METF-415 MT; +TAMS-11 MT; +VITA50005 MT; +ZINC50TA62 PO
[2020-06-30] MEDS ORDERED: METHYLPREDNISOLONE SOD SUCC 125 MG/2 ML VIAL IV STA (21:11)
[2020-06-30] MEDS ORDERED: KETOROLAC 30MG/ML VIAL IV STA (21:11)
[2020-06-30] MEDS ORDERED: DIPHENHYDRAMINE 50MG/ML VIAL IV ONE (21:15)
[2020-06-30 21:52] LABS: BASOPHILS % 0.6 % (0.0-2.0); EOSINOPHILS % 1.5 % (0.0-5.0); HEMATOCRIT. 38.3 % (42.0-52.0); HEMOGLOBIN. 12.5 g/dL (14.0-18.0); LYMPHOCYTES % 16.6 % (20.0-50.0); MEAN CORPUSCULAR HEMOGLOBIN 27.6 pg (28.0-32.0); MEAN CORPUSCULAR VOLUME 84.8 fL (80.0-94.0); MEAN PLATELET VOLUME 9.5 fl (7.4-10.4); MONOCYTES % 9.8 % (2.0-8.0); NEUTROPHILS % 71.5 % (40.0-76.0); PLATELET 203 x1000/uL (130-400); RED BLOOD CELL COUNT 4.51 mill/uL (4.7-6.1); RED CELL DISTRIBUTION WIDTH 19.8 % (11.6-14.6)
[2020-06-30 21:59] LABS: CHLORIDE 110 mEq/L (98-107)
[2020-06-30 22:04] LABS: D-DIMER 0.34 mg/L FEU (<0.50); PARTIAL THROMBOPLASTIN TIME 30.4 sec (23.4-31.0)
[2020-07-01] MEDS ORDERED: DIPHENHYDRAMINE 50MG/ML VIAL IV ONE
[2020-07-01] MEDS ORDERED: IOHEXOL-350 100 ML BOTTLE ONE (01:27)
[2020-07-01 02:40] VITALS: BP 117/67
== END 2020-07-01 02:49 | disposition home or self-care (01) ==
LOC: ER 17:20
DX: R07.89 Other chest pain (principal); E11.9 Type 2 diabetes mellitus without complications; H40.9 Unspecified glaucoma; Z95.0 Presence of cardiac pacemaker; Z86.711 Personal history of pulmonary embolism; Z79.01 Long term (current) use of anticoagulants; Z91.041 Radiographic dye allergy status; Z91.013 Allergy to seafood; Z88.8 Allergy status to other drugs, medicaments and biological substances; Z91.018 Allergy to other foods; Z79.82 Long term (current) use of aspirin; Z79.84 Long term (current) use of oral hypoglycemic drugs
CPT/HCPCS: 36415; 71045; 71275; 80053; 84484; 85025; 85379; 85610; 85730; 93005; 96374; 96375; 96376; 99285; J1200; J1885; J2930; Q9967

== ENCOUNTER 2020-07-26 16:07 | Emergency (ER) | payer MEDICARE, MEDICAID ==
[~2020-07-26] VITALS: Ht 172.7 cm; Wt 90.0 kg
[2020-07-26 16:56] VITALS: BP 149/105
== END 2020-07-26 21:14 | disposition left against medical advice (07) ==
LOC: ER 16:07
DX: Z53.21 Procedure and treatment not carried out due to patient leaving prior to being seen by health care provider (principal)

== ENCOUNTER 2020-08-03 01:25 | Emergency (ER) | payer MEDICARE, MEDICAID ==
[~2020-08-03] VITALS: Ht 172.7 cm; Wt 86.8 kg
[2020-08-03] MEDS ORDERED: ASPIRIN 81MG TABLET PO ONE (07:15)
[2020-08-03 07:39] LABS: BASOPHILS % 0.2 % (0.0-2.0); EOSINOPHILS % 0.9 % (0.0-5.0); HEMATOCRIT. 45.9 % (42.0-52.0); HEMOGLOBIN. 14.7 g/dL (14.0-18.0); LYMPHOCYTES % 7.9 % (20.0-50.0); MEAN CORPUSCULAR HEMOGLOBIN 27.8 pg (28.0-32.0); MEAN PLATELET VOLUME 10.5 fl (7.4-10.4); MONOCYTES % 5.2 % (2.0-8.0); NEUTROPHILS % 85.8 % (40.0-76.0); PLATELET 168 x1000/uL (130-400); RED BLOOD CELL COUNT 5.28 mill/uL (4.7-6.1); RED CELL DISTRIBUTION WIDTH 18.2 % (11.6-14.6)
[2020-08-03 07:42] LABS: CHLORIDE 109 mEq/L (98-107)
[2020-08-03 12:42] VITALS: BP 112/70
== END 2020-08-03 12:45 | disposition home or self-care (01) ==
LOC: ER 01:25
DX: R07.89 Other chest pain (principal); R19.7 Diarrhea, unspecified; E11.9 Type 2 diabetes mellitus without complications; E78.00 Pure hypercholesterolemia, unspecified; Z95.0 Presence of cardiac pacemaker; Z79.899 Other long term (current) drug therapy
CPT/HCPCS: 36415; 71045; 80053; 84484; 85025; 93005; 99285

== ENCOUNTER 2020-10-28 18:36 | Emergency (ER) | payer MEDICARE, MEDICAID ==
[~2020-10-28] VITALS: Ht 172.7 cm; Wt 89.0 kg
[~2020-10-28 18:36] MED LIST changes: -APIX5TAB PO; +ASPI-1497 MT; -ATOR10TA PO; -FINA5TAB11 PO; -METF-415 PO; -TAMS-11 PO; -TRAV2.5D EACHEYE; +TRAV2.5D9 EACHEYE
[2020-10-28 22:21] LABS: BASOPHILS % 0.6 % (0.0-2.0); EOSINOPHILS % 3.6 % (0.0-5.0); HEMATOCRIT. 42.6 % (42.0-52.0); HEMOGLOBIN. 14.3 g/dL (14.0-18.0); LYMPHOCYTES % 21.5 % (20.0-50.0); MEAN CORPUSCULAR VOLUME 89.3 fL (80.0-94.0); MEAN PLATELET VOLUME 9.9 fl (7.4-10.4); MONOCYTES % 9.1 % (2.0-8.0); NEUTROPHILS % 65.2 % (40.0-76.0); PLATELET 176 x1000/uL (130-400); RED BLOOD CELL COUNT 4.78 mill/uL (4.7-6.1); RED CELL DISTRIBUTION WIDTH 14.7 % (11.6-14.6)
[2020-10-28 22:27] LABS: CHLORIDE 107 mEq/L (98-107)
[2020-10-28] MEDS ORDERED: MORPHINE SULFATE 4 MG/ML CPJ (NOT FOR IM USE) IV STA (22:30)
[2020-10-28] MEDS ORDERED: ASPIRIN 325MG EC TABLET PO ONE (23:00)
[2020-10-28] MEDS ORDERED: TOPUD PO (23:01)
[2020-10-28 23:22] VITALS: BP 140/68
== END 2020-10-28 23:25 | disposition home or self-care (01) ==
LOC: ER 18:36 → CANBEDREQ 23:09 → ER 23:25
DX: R07.89 Other chest pain (principal); E11.9 Type 2 diabetes mellitus without complications; H40.9 Unspecified glaucoma; E78.00 Pure hypercholesterolemia, unspecified; I51.9 Heart disease, unspecified; Z98.890 Other specified postprocedural states; Z95.0 Presence of cardiac pacemaker; Z79.84 Long term (current) use of oral hypoglycemic drugs; Z91.041 Radiographic dye allergy status; Z91.018 Allergy to other foods; Z91.013 Allergy to seafood
CPT/HCPCS: 36415; 71045; 80053; 84484; 85025; 93005; 96374; 99285; J2270

== ENCOUNTER 2020-11-01 04:18 | Emergency (ER) | payer MEDICARE, MEDICAID ==
[~2020-11-01] VITALS: Ht 172.7 cm; Wt 89.0 kg
[~2020-11-01 04:18] MED LIST changes: +TOPUD PO
[2020-11-01 06:46] LABS: BASOPHILS % 0.6 % (0.0-2.0); EOSINOPHILS % 3.4 % (0.0-5.0); HEMATOCRIT. 42.8 % (42.0-52.0); HEMOGLOBIN. 14.1 g/dL (14.0-18.0); LYMPHOCYTES % 20.1 % (20.0-50.0); MEAN CORPUSCULAR HEMOGLOBIN 29.9 pg (28.0-32.0); MEAN PLATELET VOLUME 10.2 fl (7.4-10.4); MONOCYTES % 9.8 % (2.0-8.0); NEUTROPHILS % 66.1 % (40.0-76.0); PLATELET 150 x1000/uL (130-400); RED CELL DISTRIBUTION WIDTH 14.6 % (11.6-14.6)
[2020-11-01 06:56] LABS: CHLORIDE 111 mEq/L (98-107)
[2020-11-01 06:57] LABS: PARTIAL THROMBOPLASTIN TIME 32.1 sec (23.4-31.0); PROTHROMBIN TIME 11.2 sec (9.6-11.0)
[2020-11-01 13:26] VITALS: BP 125/70
== END 2020-11-01 13:28 | disposition left against medical advice (07) ==
LOC: ER 04:18
DX: R07.2 Precordial pain (principal); R42 Dizziness and giddiness; I51.9 Heart disease, unspecified; E11.9 Type 2 diabetes mellitus without complications; Z86.711 Personal history of pulmonary embolism; Z79.01 Long term (current) use of anticoagulants; Z86.718 Personal history of other venous thrombosis and embolism; Z95.0 Presence of cardiac pacemaker; Z79.899 Other long term (current) drug therapy; Z98.890 Other specified postprocedural states
CPT/HCPCS: 36415; 71045; 80053; 83880; 84484; 85025; 93005; 93971; 99285

== ENCOUNTER 2020-11-06 05:26 | Emergency (ER) | payer MEDICARE, MEDICAID ==
[~2020-11-06] VITALS: Ht 172.7 cm; Wt 89.0 kg
[2020-11-06 08:20] VITALS: BP 116/71
[2020-11-06] MEDS ORDERED: TOPUD PO (08:26)
== END 2020-11-06 08:44 | disposition home or self-care (01) ==
LOC: ER 05:26
DX: R10.31 Right lower quadrant pain (principal); E11.9 Type 2 diabetes mellitus without complications; I25.10 Atherosclerotic heart disease of native coronary artery without angina pectoris; E78.00 Pure hypercholesterolemia, unspecified; Z95.0 Presence of cardiac pacemaker; Z86.718 Personal history of other venous thrombosis and embolism; Z91.041 Radiographic dye allergy status; Z79.2 Long term (current) use of antibiotics; Z79.84 Long term (current) use of oral hypoglycemic drugs; Z79.899 Other long term (current) drug therapy
CPT/HCPCS: 93970; 99284

== ENCOUNTER 2020-11-28 16:41 | Emergency (ER) | payer MEDICARE, MEDICAID ==
[~2020-11-28 16:41] MED LIST changes: -CYAN50008 MT; +CYAN50009 MT
== END 2020-11-28 18:17 | disposition left against medical advice (07) ==
LOC: ER 16:41
DX: R07.89 Other chest pain (principal); Z53.21 Procedure and treatment not carried out due to patient leaving prior to being seen by health care provider

== ENCOUNTER 2020-12-27 23:26 | Inpatient (IN) | payer MEDICARE, MEDICAID ==
[~2020-12-27] VITALS: Ht 172.7 cm; Wt 87.1 kg
[~2020-12-27 23:26] MED LIST changes: -ASPI-1497 MT; -TOPUD PO
[2020-12-28 03:00] LABS: BASOPHILS % 0.6 % (0.0-2.0); EOSINOPHILS % 2.6 % (0.0-5.0); HEMATOCRIT. 45.9 % (42.0-52.0); HEMOGLOBIN. 15.3 g/dL (14.0-18.0); LYMPHOCYTES % 18.1 % (20.0-50.0); MEAN CORPUSCULAR HEMOGLOBIN 30.2 pg (28.0-32.0); MEAN CORPUSCULAR VOLUME 90.6 fL (80.0-94.0); MEAN PLATELET VOLUME 9.9 fl (7.4-10.4); MONOCYTES % 10.1 % (2.0-8.0); NEUTROPHILS % 68.6 % (40.0-76.0); PLATELET 162 x1000/uL (130-400); RED BLOOD CELL COUNT 5.07 mill/uL (4.7-6.1); RED CELL DISTRIBUTION WIDTH 14.6 % (11.6-14.6)
[2020-12-28 03:06] LABS: CHLORIDE 106 mEq/L (98-107)
[2020-12-28] MEDS ORDERED: MORPHINE SULFATE 4 MG/ML CPJ (NOT FOR IM USE) IV STA (03:39)
[2020-12-28] MEDS ORDERED: MORPHINE SULFATE 2 MG/ML CPJ (NOT FOR IM USE) IV SCH (04:00)
[2020-12-28] MEDS ORDERED: ASPIRIN 81MG TABLET PO ONE (05:00)
[2020-12-28] MEDS ORDERED: HYDROCODONE/ACETAMINOPHEN 5/325MG TABLET PO PRN (06:45)
[2020-12-28] MEDS ORDERED: CLONIDINE 0.1MG TABLET PO PRN (06:45)
[2020-12-28] MEDS ORDERED: ONDANSETRON HCL 4MG/2ML INJ IV PRN (06:45)
[2020-12-28] MEDS ORDERED: MAGNESIUM/ALUMINUM HYDROXIDE/SIMETHICONE 30ML UDC PO PRN (08:00)
[2020-12-28] MEDS ORDERED: NALOXONE HCL 0.4MG/ML VIAL IV PRN (08:30)
[2020-12-28] MEDS ORDERED: DORZOLAM/TIMOLOL 2.23/0.68% OPHTH DROPS 10ML EACHEYE SCH (09:00)
[2020-12-28 10:02] VITALS: BP 132/84
[2020-12-28] MEDS ORDERED: KETOROLAC 15MG/ML VIAL IV PRN (10:30)
[2020-12-28] MEDS: FINASTERIDE 5MG TABLET PO SCH (11:58)
[2020-12-28] MEDS: BRIMONIDINE 0.2% OPHTH DROPS 5ML EACHEYE SCH ×2 (11:58→17:48)
[2020-12-28] MEDS: DORZOLAM/TIMOLOL 2.23/0.68% OPHTH DROPS 10ML BOTHEYE SCH ×2 (11:59→17:48)
[2020-12-28] MEDS: APIXABAN 5 MG TABLET PO SCH ×2 (11:59→17:46)
[2020-12-28] MEDS: ATORVASTATIN CALCIUM 10MG TABLET PO SCH (11:59)
[2020-12-28] MEDS: FERROUS SULFATE 325MG TABLET PO SCH (12:06)
[2020-12-28] MEDS: TAMSULOSIN HCL 0.4MG SR CAPSULE PO SCH (12:07)
[2020-12-28 16:00] VITALS: BP 112/65
[2020-12-28 19:50] VITALS: BP 112/66
[2020-12-28] MEDS: NITROGLYCERIN OINT 1GM/INCH UDPKT TD SCH (22:00)
[2020-12-29] VITALS: BP 98/52
[2020-12-29 04:00] VITALS: BP 108/60
[2020-12-29] MEDS: NITROGLYCERIN OINT 1GM/INCH UDPKT TD SCH ×3 (06:00→22:00)
[2020-12-29 08:00] VITALS: BP 90/60
[2020-12-29] MEDS: TAMSULOSIN HCL 0.4MG SR CAPSULE PO SCH (08:27)
[2020-12-29] MEDS: BRIMONIDINE 0.2% OPHTH DROPS 5ML EACHEYE SCH ×2 (08:27→17:28)
[2020-12-29] MEDS: FERROUS SULFATE 325MG TABLET PO SCH (08:27)
[2020-12-29] MEDS: APIXABAN 5 MG TABLET PO SCH ×2 (08:28→17:25)
[2020-12-29] MEDS: ATORVASTATIN CALCIUM 10MG TABLET PO SCH (08:28)
[2020-12-29 08:29] LABS: BASOPHILS % 0.6 % (0.0-2.0); EOSINOPHILS % 2.9 % (0.0-5.0); HEMATOCRIT. 40.1 % (42.0-52.0); HEMOGLOBIN. 13.2 g/dL (14.0-18.0); MEAN CORPUSCULAR HEMOGLOBIN 29.5 pg (28.0-32.0); MEAN CORPUSCULAR VOLUME 89.9 fL (80.0-94.0); MEAN PLATELET VOLUME 10.5 fl (7.4-10.4); MONOCYTES % 11.3 % (2.0-8.0); NEUTROPHILS % 67.2 % (40.0-76.0); PLATELET 150 x1000/uL (130-400); RED BLOOD CELL COUNT 4.46 mill/uL (4.7-6.1); RED CELL DISTRIBUTION WIDTH 14.1 % (11.6-14.6)
[2020-12-29] MEDS: FINASTERIDE 5MG TABLET PO SCH (08:30)
[2020-12-29 08:39] LABS: CHLORIDE 106 mEq/L (98-107)
[2020-12-29] MEDS: DORZOLAM/TIMOLOL 2.23/0.68% OPHTH DROPS 10ML BOTHEYE SCH ×2 (08:50→17:28)
[2020-12-29 12:00] VITALS: BP 95/65
[2020-12-29 16:00] VITALS: BP 91/45
[2020-12-29] MEDS: ACETAMINOPHEN 325MG TABLET PO PRN (17:26)
[2020-12-29 20:00] VITALS: BP 97/46
[2020-12-30] VITALS: BP 135/68
[2020-12-30] MEDS: NITROGLYCERIN OINT 1GM/INCH UDPKT TD SCH ×3 (06:00→22:00)
[2020-12-30 08:00] VITALS: BP 97/47
[2020-12-30] MEDS: ATORVASTATIN CALCIUM 10MG TABLET PO SCH (09:05)
[2020-12-30] MEDS: FINASTERIDE 5MG TABLET PO SCH (09:05)
[2020-12-30] MEDS: APIXABAN 5 MG TABLET PO SCH ×2 (09:05→18:48)
[2020-12-30] MEDS: FERROUS SULFATE 325MG TABLET PO SCH (09:05)
[2020-12-30] MEDS: TAMSULOSIN HCL 0.4MG SR CAPSULE PO SCH (09:05)
[2020-12-30] MEDS: BRIMONIDINE 0.2% OPHTH DROPS 5ML EACHEYE SCH ×2 (09:06→18:49)
[2020-12-30] MEDS: DORZOLAM/TIMOLOL 2.23/0.68% OPHTH DROPS 10ML BOTHEYE SCH ×2 (09:06→18:49)
[2020-12-30 16:00] VITALS: BP 113/57
[2020-12-30 20:00] VITALS: BP 92/41
[2020-12-31] VITALS: BP 101/54
[2020-12-31] MEDS: NITROGLYCERIN OINT 1GM/INCH UDPKT TD SCH ×3 (06:00→20:47)
[2020-12-31 08:00] VITALS: BP 125/52
[2020-12-31] MEDS: APIXABAN 5 MG TABLET PO SCH ×2 (10:26→18:24)
[2020-12-31] MEDS: TAMSULOSIN HCL 0.4MG SR CAPSULE PO SCH (10:26)
[2020-12-31] MEDS: ATORVASTATIN CALCIUM 10MG TABLET PO SCH (10:26)
[2020-12-31] MEDS: FINASTERIDE 5MG TABLET PO SCH (10:27)
[2020-12-31] MEDS: FERROUS SULFATE 325MG TABLET PO SCH (10:27)
[2020-12-31] MEDS: BRIMONIDINE 0.2% OPHTH DROPS 5ML EACHEYE SCH ×2 (10:27→18:25)
[2020-12-31] MEDS: DORZOLAM/TIMOLOL 2.23/0.68% OPHTH DROPS 10ML BOTHEYE SCH ×2 (10:27→18:25)
[2020-12-31 20:18] VITALS: BP 112/66
[2020-12-31] MEDS: ACETAMINOPHEN 325MG TABLET PO PRN (20:43)
[2021-01-01 08:00] VITALS: BP 104/53
[2021-01-01] MEDS: TAMSULOSIN HCL 0.4MG SR CAPSULE PO SCH (09:00)
[2021-01-01] MEDS: BRIMONIDINE 0.2% OPHTH DROPS 5ML EACHEYE SCH (09:21)
[2021-01-01] MEDS: DORZOLAM/TIMOLOL 2.23/0.68% OPHTH DROPS 10ML BOTHEYE SCH (09:21)
[2021-01-01] MEDS: APIXABAN 5 MG TABLET PO SCH (09:22)
[2021-01-01] MEDS: ATORVASTATIN CALCIUM 10MG TABLET PO SCH (09:22)
[2021-01-01] MEDS: FERROUS SULFATE 325MG TABLET PO SCH (09:22)
[2021-01-01] MEDS: FINASTERIDE 5MG TABLET PO SCH (09:23)
[2021-01-01 12:00] VITALS: BP 103/50
[2021-01-01 16:23] VITALS: BP 103/50
== END 2021-01-01 17:00 | disposition home or self-care (01) | DRG 203 ==
LOC: ER 23:26 → MICUSO 12-28 05:03 → 6WST 12-28 07:55
PROVIDERS: ADMIT Hospitalist; ATTEND Hospitalist
DX: M94.0 Chondrocostal junction syndrome [Tietze] (principal); I49.5 Sick sinus syndrome; E11.9 Type 2 diabetes mellitus without complications; G89.4 Chronic pain syndrome; I10 Essential (primary) hypertension; E78.00 Pure hypercholesterolemia, unspecified; E78.5 Hyperlipidemia, unspecified; Z95.0 Presence of cardiac pacemaker; Z86.711 Personal history of pulmonary embolism; Z82.49 Family history of ischemic heart disease and other diseases of the circulatory system; Z91.041 Radiographic dye allergy status; Z91.013 Allergy to seafood; Z91.018 Allergy to other foods; Z79.01 Long term (current) use of anticoagulants; Z79.899 Other long term (current) drug therapy; Z76.5 Malingerer [conscious simulation]
CPT/HCPCS: 36415; 71045; 80053; 83880; 84484; 85025; 93005; 99285; J2270

== ENCOUNTER 2021-01-02 03:01 | Emergency (ER) | payer MEDICARE, MEDICAID ==
[~2021-01-02] VITALS: Ht 172.7 cm; Wt 88.0 kg
[2021-01-02 08:09] LABS: BASOPHILS % 0.6 % (0.0-2.0); HEMATOCRIT. 43.2 % (42.0-52.0); HEMOGLOBIN. 14.1 g/dL (14.0-18.0); MEAN CORPUSCULAR HEMOGLOBIN 29.7 pg (28.0-32.0); MEAN CORPUSCULAR VOLUME 90.9 fL (80.0-94.0); MEAN PLATELET VOLUME 9.9 fl (7.4-10.4); MONOCYTES % 10.1 % (2.0-8.0); NEUTROPHILS % 69.3 % (40.0-76.0); PLATELET 189 x1000/uL (130-400); RED BLOOD CELL COUNT 4.75 mill/uL (4.7-6.1); RED CELL DISTRIBUTION WIDTH 14.2 % (11.6-14.6)
[2021-01-02] MEDS ORDERED: KETOROLAC 30MG/ML VIAL IV ONE (08:15)
[2021-01-02 08:16] LABS: CHLORIDE 111 mEq/L (98-107)
[2021-01-02 08:55] VITALS: BP 126/77
== END 2021-01-02 08:54 | disposition home or self-care (01) ==
LOC: ER 03:01
DX: R07.89 Other chest pain (principal); E78.00 Pure hypercholesterolemia, unspecified; Z91.041 Radiographic dye allergy status; Z91.013 Allergy to seafood; Z79.899 Other long term (current) drug therapy
CPT/HCPCS: 36415; 71045; 80053; 83880; 84484; 85025; 93005; 99285

== ENCOUNTER 2021-01-20 08:26 | Inpatient (IN) | payer MEDICARE, MEDICAID ==
[~2021-01-20] VITALS: Ht 172.7 cm; Wt 88.9 kg
[2021-01-20] MEDS ORDERED: ASPIRIN 81MG TABLET PO ONE (09:45)
[2021-01-20 12:11] LABS: BASOPHILS % 0.5 % (0.0-2.0); EOSINOPHILS % 2.9 % (0.0-5.0); HEMATOCRIT. 39.7 % (42.0-52.0); HEMOGLOBIN. 13.1 g/dL (14.0-18.0); MEAN CORPUSCULAR HEMOGLOBIN 29.5 pg (28.0-32.0); MEAN CORPUSCULAR VOLUME 89.6 fL (80.0-94.0); MEAN PLATELET VOLUME 9.9 fl (7.4-10.4); MONOCYTES % 10.2 % (2.0-8.0); NEUTROPHILS % 66.4 % (40.0-76.0); PLATELET 162 x1000/uL (130-400); RED BLOOD CELL COUNT 4.43 mill/uL (4.7-6.1); RED CELL DISTRIBUTION WIDTH 14.7 % (11.6-14.6)
[2021-01-20 12:20] LABS: CHLORIDE 110 mEq/L (98-107)
[2021-01-20] MEDS ORDERED: MORPHINE SULFATE 2 MG/ML CPJ (NOT FOR IM USE) IV ONE (12:45)
[2021-01-20] MEDS ORDERED: DOCUSATE SODIUM 100MG CAPSULE PO PRN (21:30)
[2021-01-20] MEDS ORDERED: GUAIFENESIN 200MG/10ML SUGAR FREE UDC PO PRN (21:30)
[2021-01-20] MEDS ORDERED: IPRATROPIUM/ALBUTEROL 0.5-3(2.5)MG/3ML NEB HHN PRN (21:30)
[2021-01-20] MEDS ORDERED: ONDANSETRON HCL 4MG/2ML INJ IV PRN (21:30)
[2021-01-20] MEDS ORDERED: CLONIDINE 0.1MG TABLET PO PRN (21:30)
[2021-01-20] MEDS ORDERED: LORAZEPAM 2MG/ML CPJ IV PRN (21:30)
[2021-01-20] MEDS ORDERED: MAGNESIUM/ALUMINUM HYDROXIDE/SIMETHICONE 30ML UDC PO PRN (21:30)
[2021-01-20] MEDS ORDERED: ACETAMINOPHEN 325MG TABLET PO PRN (21:30)
[2021-01-20] MEDS ORDERED: DIPHENHYDRAMINE 50MG/ML VIAL IV PRN (21:30)
[2021-01-20] MEDS ORDERED: HYDRALAZINE 20MG/ML VIAL IV PRN (21:30)
[2021-01-20] MEDS ORDERED: HYDROCODONE/ACETAMINOPHEN 5/325MG TABLET PO PRN (21:30)
[2021-01-20] MEDS ORDERED: DEXTROSE 50% WATER 50ML SYRINGE IV PRN (22:00)
[2021-01-20 22:10] VITALS: BP 108/75
[2021-01-20] MEDS: SODIUM CHLORIDE 0.9% INJ 3ML FLUSH IVF SCH (23:24)
[2021-01-20] MEDS: ENOXAPARIN 40MG/0.4ML SYR SUBCUT SCH (23:25)
[2021-01-21] VITALS: BP 108/75
[2021-01-21 00:01] LABS: CREATINE KINASE 119 IU/L (39-308)
[2021-01-21 00:02] LABS: CREATINE KINASE MB FRACTION 2.1 ng/mL (0.5-3.6)
[2021-01-21] MEDS: KETOROLAC 15MG/ML VIAL IV PRN ×3 (01:55→20:54)
[2021-01-21 04:00] VITALS: BP 133/71
[2021-01-21] MEDS: SODIUM CHLORIDE 0.9% INJ 3ML FLUSH IVF SCH ×3 (06:16→20:54)
[2021-01-21] MEDS: BLOOD SUGAR DIAGNOSTIC STRIP TEST SCH ×4 (06:16→20:02)
[2021-01-21] MEDS: INSULIN LISPRO 100 UNITS/ML SUBCUT SCH ×4 (06:16→20:02)
[2021-01-21 06:41] LABS: CHLORIDE 110 mEq/L (98-107)
[2021-01-21 06:42] LABS: BASOPHILS % 0.4 % (0.0-2.0); HEMATOCRIT. 40.2 % (42.0-52.0); HEMOGLOBIN. 13.2 g/dL (14.0-18.0); LYMPHOCYTES % 21.2 % (20.0-50.0); MEAN CORPUSCULAR HEMOGLOBIN 29.6 pg (28.0-32.0); MEAN CORPUSCULAR VOLUME 89.7 fL (80.0-94.0); NEUTROPHILS % 63.4 % (40.0-76.0); PLATELET 157 x1000/uL (130-400); RED BLOOD CELL COUNT 4.48 mill/uL (4.7-6.1); RED CELL DISTRIBUTION WIDTH 14.7 % (11.6-14.6)
[2021-01-21 07:00] LABS: CREATINE KINASE 92 IU/L (39-308)
[2021-01-21 07:04] LABS: CREATINE KINASE MB FRACTION 2.2 ng/mL (0.5-3.6)
[2021-01-21 08:00] VITALS: BP 109/70
[2021-01-21 12:00] VITALS: BP 133/70
[2021-01-21 16:00] VITALS: BP 138/58
[2021-01-21] MEDS ORDERED: NALOXONE HCL 0.4MG/ML VIAL IV PRN (17:15)
[2021-01-21 20:00] VITALS: BP 112/65
[2021-01-21] MEDS: ENOXAPARIN 40MG/0.4ML SYR SUBCUT SCH (20:53)
[2021-01-21] MEDS: DORZOLAM/TIMOLOL 2.23/0.68% OPHTH DROPS 10ML BOTHEYE SCH (20:54)
[2021-01-21] MEDS: LATANOPROST 0.005% OPHTH DROPS 2.5ML BOTHEYE SCH (20:54)
[2021-01-21] MEDS: BRIMONIDINE 0.2% OPHTH DROPS 5ML BOTHEYE SCH (20:54)
[2021-01-22 04:00] VITALS: BP 124/64
[2021-01-22] MEDS: SODIUM CHLORIDE 0.9% INJ 3ML FLUSH IVF SCH ×3 (05:31→21:41)
[2021-01-22] MEDS: BLOOD SUGAR DIAGNOSTIC STRIP TEST SCH ×4 (06:40→21:00)
[2021-01-22 06:43] LABS: BASOPHILS % 0.6 % (0.0-2.0); EOSINOPHILS % 3.5 % (0.0-5.0); HEMATOCRIT. 38.4 % (42.0-52.0); HEMOGLOBIN. 12.6 g/dL (14.0-18.0); LYMPHOCYTES % 21.1 % (20.0-50.0); MEAN CORPUSCULAR HEMOGLOBIN 29.4 pg (28.0-32.0); MEAN CORPUSCULAR VOLUME 89.9 fL (80.0-94.0); MEAN PLATELET VOLUME 9.5 fl (7.4-10.4); MONOCYTES % 11.1 % (2.0-8.0); NEUTROPHILS % 63.7 % (40.0-76.0); PLATELET 149 x1000/uL (130-400); RED BLOOD CELL COUNT 4.28 mill/uL (4.7-6.1); RED CELL DISTRIBUTION WIDTH 14.5 % (11.6-14.6)
[2021-01-22] MEDS: INSULIN LISPRO 100 UNITS/ML SUBCUT SCH ×4 (06:48→21:00)
[2021-01-22 07:37] LABS: CHLORIDE 111 mEq/L (98-107)
[2021-01-22 08:00] VITALS: BP 135/73
[2021-01-22] MEDS: BRIMONIDINE 0.2% OPHTH DROPS 5ML BOTHEYE SCH ×2 (09:34→17:03)
[2021-01-22] MEDS: KETOROLAC 15MG/ML VIAL IV PRN ×2 (09:35→20:25)
[2021-01-22] MEDS: DORZOLAM/TIMOLOL 2.23/0.68% OPHTH DROPS 10ML BOTHEYE SCH ×2 (09:35→20:23)
[2021-01-22 12:00] VITALS: BP 127/77
[2021-01-22 16:30] VITALS: BP 142/79
[2021-01-22 20:00] VITALS: BP 141/75
[2021-01-22] MEDS: LATANOPROST 0.005% OPHTH DROPS 2.5ML BOTHEYE SCH (20:23)
[2021-01-22] MEDS: ENOXAPARIN 40MG/0.4ML SYR SUBCUT SCH (20:25)
[2021-01-23] VITALS: BP 125/69
[2021-01-23 04:00] VITALS: BP 134/70
[2021-01-23] MEDS: SODIUM CHLORIDE 0.9% INJ 3ML FLUSH IVF SCH ×2 (06:00→14:07)
[2021-01-23] MEDS: INSULIN LISPRO 100 UNITS/ML SUBCUT SCH ×2 (06:37→12:10)
[2021-01-23] MEDS: BLOOD SUGAR DIAGNOSTIC STRIP TEST SCH ×2 (06:37→11:40)
[2021-01-23 08:00] VITALS: BP 138/67
[2021-01-23] MEDS: BRIMONIDINE 0.2% OPHTH DROPS 5ML BOTHEYE SCH (09:20)
[2021-01-23] MEDS: DORZOLAM/TIMOLOL 2.23/0.68% OPHTH DROPS 10ML BOTHEYE SCH (09:21)
[2021-01-23] MEDS: KETOROLAC 15MG/ML VIAL IV PRN (09:48)
[2021-01-23 12:00] VITALS: BP 129/67
[2021-01-23 14:50] VITALS: BP 129/67
== END 2021-01-23 14:47 | disposition home or self-care (01) | DRG 203 ==
LOC: ER 08:26 → EDBEDREQ 16:38 → EDBEDREQTM 16:38 → EDBEDREQ 16:43 → ENRESERV 20:58 → 7EST 23:06
PROVIDERS: ADMIT Internal Medicine; ATTEND Internal Medicine
DX: M94.0 Chondrocostal junction syndrome [Tietze] (principal); I49.5 Sick sinus syndrome; E11.9 Type 2 diabetes mellitus without complications; E78.00 Pure hypercholesterolemia, unspecified; E78.5 Hyperlipidemia, unspecified; I10 Essential (primary) hypertension; Z76.5 Malingerer [conscious simulation]; Z79.01 Long term (current) use of anticoagulants; Z82.49 Family history of ischemic heart disease and other diseases of the circulatory system; Z86.711 Personal history of pulmonary embolism; Z86.718 Personal history of other venous thrombosis and embolism; Z95.0 Presence of cardiac pacemaker; Z91.041 Radiographic dye allergy status; Z91.013 Allergy to seafood; Z91.018 Allergy to other foods; Z79.1 Long term (current) use of non-steroidal anti-inflammatories (NSAID); Z79.899 Other long term (current) drug therapy; Z79.82 Long term (current) use of aspirin
CPT/HCPCS: 36415; 71045; 80048; 80053; 82550; 82553; 82962; 83036; 83880; 84443; 84484; 85025; 85379; 93005; 93970; 99285; C1893; J1650; J1885; J2270

== ENCOUNTER 2021-01-31 07:40 | Emergency (ER) | payer MEDICARE, MEDICAID ==
[~2021-01-31] VITALS: Ht 167.6 cm; Wt 89.0 kg
[2021-01-31] MEDS ORDERED: MORPHINE SULFATE 4 MG/ML CPJ (NOT FOR IM USE) IV STA (07:56)
[2021-01-31 10:00] VITALS: BP 122/74
[2021-01-31 10:11] LABS: BASOPHILS % 0.6 % (0.0-2.0); EOSINOPHILS % 3.1 % (0.0-5.0); HEMATOCRIT. 43.9 % (42.0-52.0); HEMOGLOBIN. 14.2 g/dL (14.0-18.0); LYMPHOCYTES % 21.2 % (20.0-50.0); MEAN CORPUSCULAR HEMOGLOBIN 29.3 pg (28.0-32.0); MEAN CORPUSCULAR VOLUME 90.9 fL (80.0-94.0); MONOCYTES % 10.3 % (2.0-8.0); NEUTROPHILS % 64.8 % (40.0-76.0); PLATELET 173 x1000/uL (130-400); RED BLOOD CELL COUNT 4.82 mill/uL (4.7-6.1); RED CELL DISTRIBUTION WIDTH 14.7 % (11.6-14.6)
[2021-01-31 10:18] LABS: CHLORIDE 108 mEq/L (98-107)
[2021-01-31] MEDS ORDERED: TOPUD PO (10:33)
== END 2021-01-31 11:19 | disposition home or self-care (01) ==
LOC: ER 07:40
DX: R07.89 Other chest pain (principal); I25.10 Atherosclerotic heart disease of native coronary artery without angina pectoris; E11.9 Type 2 diabetes mellitus without complications; E78.5 Hyperlipidemia, unspecified; Z79.899 Other long term (current) drug therapy; Z79.84 Long term (current) use of oral hypoglycemic drugs; Z95.810 Presence of automatic (implantable) cardiac defibrillator; Z91.041 Radiographic dye allergy status
CPT/HCPCS: 36415; 71045; 80053; 83880; 84484; 85025; 93005; 96374; 99285; J2270

== ENCOUNTER 2021-02-05 19:14 | Emergency (ER) | payer MEDICARE, MEDICAID ==
[~2021-02-05] VITALS: Ht 172.7 cm; Wt 89.0 kg
[~2021-02-05 19:14] MED LIST changes: +TOPUD PO
[2021-02-06 00:37] LABS: BASOPHILS % 0.7 % (0.0-2.0); EOSINOPHILS % 2.8 % (0.0-5.0); HEMATOCRIT. 44.9 % (42.0-52.0); HEMOGLOBIN. 14.8 g/dL (14.0-18.0); LYMPHOCYTES % 21.5 % (20.0-50.0); MEAN CORPUSCULAR HEMOGLOBIN 29.7 pg (28.0-32.0); MEAN CORPUSCULAR VOLUME 89.9 fL (80.0-94.0); MEAN PLATELET VOLUME 10.1 fl (7.4-10.4); MONOCYTES % 9.9 % (2.0-8.0); NEUTROPHILS % 65.1 % (40.0-76.0); PLATELET 190 x1000/uL (130-400); RED CELL DISTRIBUTION WIDTH 14.5 % (11.6-14.6)
[2021-02-06 00:43] LABS: CHLORIDE 105 mEq/L (98-107)
[2021-02-06] MEDS ORDERED: HYDROCODONE/ACETAMINOPHEN 5/325MG TABLET PO ONE (01:15)
[2021-02-06 01:22] VITALS: BP 110/71
[2021-02-06] MEDS ORDERED: BACL-141 MT (03:29)
[2021-02-06] MEDS ORDERED: IBUP-2029 MT (03:29)
== END 2021-02-06 03:58 | disposition home or self-care (01) ==
LOC: ER 19:14
DX: R07.89 Other chest pain (principal); E78.00 Pure hypercholesterolemia, unspecified; E11.9 Type 2 diabetes mellitus without complications; Z95.0 Presence of cardiac pacemaker; Z20.822 Contact with and (suspected) exposure to COVID-19
CPT/HCPCS: 36415; 71045; 80053; 83605; 83880; 84484; 85025; 85379; 86850; 86900; 87426; 87804; 93005; 99285

== ENCOUNTER 2021-02-24 23:15 | Emergency (ER) | payer MEDICARE, MEDICAID ==
[~2021-02-24] VITALS: Ht 172.7 cm; Wt 89.0 kg
[~2021-02-24 23:15] MED LIST changes: +BACL-141 MT; +IBUP-2029 MT
[2021-02-25 00:13] LABS: CHLORIDE 109 mEq/L (98-107)
[2021-02-25 00:15] LABS: BASOPHILS % 0.1 % (0.0-2.0); EOSINOPHILS % 0.2 % (0.0-5.0); HEMATOCRIT. 39.5 % (42.0-52.0); HEMOGLOBIN. 12.7 g/dL (14.0-18.0); LYMPHOCYTES % 7.8 % (20.0-50.0); MEAN CORPUSCULAR HEMOGLOBIN 28.8 pg (28.0-32.0); MEAN CORPUSCULAR VOLUME 89.4 fL (80.0-94.0); MONOCYTES % 11.5 % (2.0-8.0); NEUTROPHILS % 80.4 % (40.0-76.0); PLATELET 191 x1000/uL (130-400); RED BLOOD CELL COUNT 4.42 mill/uL (4.7-6.1); RED CELL DISTRIBUTION WIDTH 14.8 % (11.6-14.6)
[2021-02-25] MEDS ORDERED: ASPIRIN 81MG TABLET PO ONE (01:30)
[2021-02-25 03:15] VITALS: BP 129/76
== END 2021-02-25 03:55 | disposition home or self-care (01) ==
LOC: ER 23:15
DX: R07.89 Other chest pain (principal); E11.65 Type 2 diabetes mellitus with hyperglycemia; E78.00 Pure hypercholesterolemia, unspecified; H40.9 Unspecified glaucoma; Z95.0 Presence of cardiac pacemaker; Z79.899 Other long term (current) drug therapy
CPT/HCPCS: 36415; 71045; 80053; 84484; 85025; 93005; 99285

== ENCOUNTER 2021-03-17 00:46 | Emergency (ER) | payer MEDICARE, MEDICAID ==
[~2021-03-17] VITALS: Ht 172.7 cm; Wt 89.0 kg
[2021-03-17 00:49] VITALS: BP 122/71
[2021-03-17 01:32] LABS: BASOPHILS % 0.6 % (0.0-2.0); EOSINOPHILS % 2.8 % (0.0-5.0); HEMATOCRIT. 39.6 % (42.0-52.0); HEMOGLOBIN. 12.6 g/dL (14.0-18.0); LYMPHOCYTES % 16.9 % (20.0-50.0); MEAN CORPUSCULAR HEMOGLOBIN 28.4 pg (28.0-32.0); MEAN CORPUSCULAR VOLUME 89.2 fL (80.0-94.0); MEAN PLATELET VOLUME 9.6 fl (7.4-10.4); MONOCYTES % 10.5 % (2.0-8.0); NEUTROPHILS % 69.2 % (40.0-76.0); PLATELET 203 x1000/uL (130-400); RED BLOOD CELL COUNT 4.44 mill/uL (4.7-6.1); RED CELL DISTRIBUTION WIDTH 14.6 % (11.6-14.6)
[2021-03-17 01:36] LABS: CHLORIDE 109 mEq/L (98-107)
== END 2021-03-17 06:49 | disposition home or self-care (01) ==
LOC: ER 00:46
DX: R07.89 Other chest pain (principal); E78.00 Pure hypercholesterolemia, unspecified; H40.9 Unspecified glaucoma; Z95.0 Presence of cardiac pacemaker; Z86.718 Personal history of other venous thrombosis and embolism; Z86.711 Personal history of pulmonary embolism; Z79.01 Long term (current) use of anticoagulants
CPT/HCPCS: 36415; 80053; 84484; 85025; 93005; 99284

== ENCOUNTER 2021-03-17 18:49 | Emergency (ER) | payer MEDICARE, MEDICAID ==
[~2021-03-17] VITALS: Ht 172.7 cm; Wt 89.0 kg
[2021-03-18 01:06] LABS: BASOPHILS % 0.8 % (0.0-2.0); EOSINOPHILS % 3.3 % (0.0-5.0); HEMATOCRIT. 41.6 % (42.0-52.0); HEMOGLOBIN. 13.5 g/dL (14.0-18.0); MEAN CORPUSCULAR HEMOGLOBIN 29.1 pg (28.0-32.0); MEAN CORPUSCULAR VOLUME 89.8 fL (80.0-94.0); MEAN PLATELET VOLUME 9.5 fl (7.4-10.4); MONOCYTES % 12.7 % (2.0-8.0); NEUTROPHILS % 61.2 % (40.0-76.0); PLATELET 204 x1000/uL (130-400); RED BLOOD CELL COUNT 4.63 mill/uL (4.7-6.1); RED CELL DISTRIBUTION WIDTH 14.8 % (11.6-14.6)
[2021-03-18 01:23] LABS: CHLORIDE 109 mEq/L (98-107)
[2021-03-18 10:07] VITALS: BP 123/67
== END 2021-03-18 10:12 | disposition left against medical advice (07) ==
LOC: ER 18:49
DX: R07.89 Other chest pain (principal); E78.00 Pure hypercholesterolemia, unspecified; H40.9 Unspecified glaucoma; Z79.899 Other long term (current) drug therapy
CPT/HCPCS: 36415; 80048; 83880; 84484; 85025; 93005; 99284

== ENCOUNTER 2021-03-20 01:47 | Emergency (ER) | payer MEDICARE, MEDICAID ==
[~2021-03-20] VITALS: Ht 172.7 cm; Wt 89.0 kg
[2021-03-20 01:58] VITALS: BP 129/92
[2021-03-20] MEDS ORDERED: ASPIRIN 81MG TABLET PO ONE (02:15)
[2021-03-20 03:22] LABS: BASOPHILS % 0.6 % (0.0-2.0); EOSINOPHILS % 2.9 % (0.0-5.0); HEMATOCRIT. 37.7 % (42.0-52.0); HEMOGLOBIN. 12.7 g/dL (14.0-18.0); LYMPHOCYTES % 17.5 % (20.0-50.0); MEAN CORPUSCULAR VOLUME 89.2 fL (80.0-94.0); MEAN PLATELET VOLUME 9.6 fl (7.4-10.4); PLATELET 193 x1000/uL (130-400); RED BLOOD CELL COUNT 4.22 mill/uL (4.7-6.1); RED CELL DISTRIBUTION WIDTH 14.6 % (11.6-14.6)
[2021-03-20 03:34] LABS: CHLORIDE 109 mEq/L (98-107)
== END 2021-03-20 04:53 | disposition home or self-care (01) ==
LOC: ER 01:47
DX: R07.89 Other chest pain (principal); E78.00 Pure hypercholesterolemia, unspecified; Z91.041 Radiographic dye allergy status; Z86.711 Personal history of pulmonary embolism; Z86.718 Personal history of other venous thrombosis and embolism; Z79.899 Other long term (current) drug therapy; Z98.890 Other specified postprocedural states
CPT/HCPCS: 36415; 71045; 80053; 83880; 84484; 85025; 93005; 99285

== ENCOUNTER 2021-03-22 15:56 | Emergency (ER) | payer MEDICARE, MEDICAID ==
[~2021-03-22] VITALS: Ht 172.7 cm; Wt 89.0 kg
[2021-03-22 16:00] VITALS: BP 149/105
== END 2021-03-22 21:13 | disposition left against medical advice (07) ==
LOC: ER 15:56
DX: R07.89 Other chest pain (principal); M79.18 Myalgia, other site; E78.00 Pure hypercholesterolemia, unspecified; H40.9 Unspecified glaucoma; Z95.0 Presence of cardiac pacemaker; Z79.899 Other long term (current) drug therapy; Z88.5 Allergy status to narcotic agent
CPT/HCPCS: 93005; 99283

== ENCOUNTER 2021-03-29 22:02 | Emergency (ER) | payer MEDICARE, MEDICAID ==
[~2021-03-29] VITALS: Ht 172.7 cm; Wt 89.0 kg
[2021-03-29 22:28] VITALS: BP 112/72
[2021-03-30 00:23] LABS: BASOPHILS % 0.9 % (0.0-2.0); EOSINOPHILS % 3.3 % (0.0-5.0); HEMATOCRIT. 43.2 % (42.0-52.0); HEMOGLOBIN. 14.2 g/dL (14.0-18.0); LYMPHOCYTES % 19.6 % (20.0-50.0); MEAN CORPUSCULAR HEMOGLOBIN 29.1 pg (28.0-32.0); MEAN CORPUSCULAR VOLUME 88.6 fL (80.0-94.0); NEUTROPHILS % 65.2 % (40.0-76.0); PLATELET 190 x1000/uL (130-400); RED BLOOD CELL COUNT 4.87 mill/uL (4.7-6.1); RED CELL DISTRIBUTION WIDTH 14.8 % (11.6-14.6)
[2021-03-30 00:27] LABS: CHLORIDE 108 mEq/L (98-107)
== END 2021-03-30 02:32 | disposition home or self-care (01) ==
LOC: ER 22:02
DX: R07.89 Other chest pain (principal); E78.00 Pure hypercholesterolemia, unspecified; E11.9 Type 2 diabetes mellitus without complications; Z91.041 Radiographic dye allergy status; Z91.013 Allergy to seafood; Z79.899 Other long term (current) drug therapy; Z98.890 Other specified postprocedural states
CPT/HCPCS: 36415; 71045; 80053; 84484; 85025; 93005; 99285

== ENCOUNTER 2021-04-01 20:43 | Emergency (ER) | payer MEDICARE, MEDICAID ==
[~2021-04-01] VITALS: Ht 172.7 cm; Wt 89.0 kg
[2021-04-01 20:45] VITALS: BP 138/80
[2021-04-01] MEDS ORDERED: ASPIRIN 325MG EC TABLET PO ONE (21:00)
== END 2021-04-01 21:23 | disposition home or self-care (01) ==
LOC: ER 20:43
DX: R07.89 Other chest pain (principal); G89.29 Other chronic pain; E11.9 Type 2 diabetes mellitus without complications; E78.00 Pure hypercholesterolemia, unspecified; H40.9 Unspecified glaucoma; Z79.899 Other long term (current) drug therapy; Z88.5 Allergy status to narcotic agent
CPT/HCPCS: 93005; 99283

== ENCOUNTER 2021-04-01 22:29 | Emergency (ER) | payer MEDICARE, MEDICAID ==
[~2021-04-01] VITALS: Ht 172.7 cm; Wt 89.0 kg
[2021-04-01 22:32] VITALS: BP 121/82
== END 2021-04-01 22:43 | disposition home or self-care (01) ==
LOC: ER 22:29
DX: R07.89 Other chest pain (principal); E11.9 Type 2 diabetes mellitus without complications; E78.00 Pure hypercholesterolemia, unspecified; H40.9 Unspecified glaucoma; Z79.899 Other long term (current) drug therapy
CPT/HCPCS: 93005; 99283

== ENCOUNTER 2021-05-02 19:40 | Emergency (ER) | payer MEDICARE, MEDICAID ==
[~2021-05-02] VITALS: Ht 172.7 cm; Wt 89.0 kg
[2021-05-02] MEDS ORDERED: HYDROCODONE/ACETAMINOPHEN 5/325MG TABLET PO STA (20:29)
[2021-05-02] MEDS ORDERED: ASPIRIN 81MG TABLET PO ONE (20:30)
[2021-05-02 20:56] LABS: CHLORIDE 107 mEq/L (98-107)
[2021-05-02 20:58] LABS: BASOPHILS % 0.4 % (0.0-2.0); EOSINOPHILS % 2.5 % (0.0-5.0); HEMATOCRIT. 42.6 % (42.0-52.0); LYMPHOCYTES % 16.2 % (20.0-50.0); MEAN CORPUSCULAR HEMOGLOBIN 29.4 pg (28.0-32.0); MEAN CORPUSCULAR VOLUME 89.1 fL (80.0-94.0); MEAN PLATELET VOLUME 11.1 fl (7.4-10.4); MONOCYTES % 7.4 % (2.0-8.0); NEUTROPHILS % 73.5 % (40.0-76.0); PLATELET 185 x1000/uL (130-400); RED BLOOD CELL COUNT 4.78 mill/uL (4.7-6.1); RED CELL DISTRIBUTION WIDTH 15.8 % (11.6-14.6)
[2021-05-02] MEDS: NITROGLYCERIN 0.4MG TABLET SL SL PRN ×2 (21:00→22:19)
[2021-05-02] MEDS ORDERED: ACETAMINOPHEN 325MG TABLET PO ONE (22:00)
[2021-05-02] MEDS ORDERED: LIDOCAINE HCL/EPINEPHRINE 1%-EPI 1:100,000 20 ML VIAL INFIL ONE (22:00)
[2021-05-02] MEDS ORDERED: BACITRACIN ZINC OINT UDPKT TOP ONE (22:00)
[2021-05-02 23:55] VITALS: BP 123/53
== END 2021-05-03 00:23 | disposition home or self-care (01) ==
LOC: ER 19:40
DX: R07.89 Other chest pain (principal); E11.9 Type 2 diabetes mellitus without complications; E78.00 Pure hypercholesterolemia, unspecified; H40.9 Unspecified glaucoma; Z95.0 Presence of cardiac pacemaker; Z79.899 Other long term (current) drug therapy
CPT/HCPCS: 36415; 71045; 80053; 83880; 84484; 85025; 93005; 99285; J3490

== ENCOUNTER 2021-05-03 01:00 | Emergency (ER) | payer MEDICARE, MEDICAID ==
[~2021-05-03] VITALS: Ht 172.7 cm; Wt 89.0 kg
[2021-05-03] MEDS ORDERED: ACETAMINOPHEN 325MG TABLET PO ONE (01:30)
[2021-05-03 02:05] VITALS: BP 132/78
== END 2021-05-03 02:05 | disposition home or self-care (01) ==
LOC: ER 01:00
DX: R07.89 Other chest pain (principal); R42 Dizziness and giddiness; E11.9 Type 2 diabetes mellitus without complications; E78.00 Pure hypercholesterolemia, unspecified; H40.9 Unspecified glaucoma; Z79.899 Other long term (current) drug therapy
CPT/HCPCS: 93005; 99283

== ENCOUNTER 2021-05-26 23:54 | Inpatient (IN) | payer MEDICARE, MEDICAID ==
[~2021-05-26] VITALS: Ht 177.8 cm; Wt 88.6 kg
[2021-05-27 00:46] LABS: BASOPHILS % 0.6 % (0.0-2.0); EOSINOPHILS % 2.2 % (0.0-5.0); HEMOGLOBIN. 14.2 g/dL (14.0-18.0); LYMPHOCYTES % 19.8 % (20.0-50.0); MEAN CORPUSCULAR HEMOGLOBIN 28.8 pg (28.0-32.0); MEAN CORPUSCULAR VOLUME 87.1 fL (80.0-94.0); MEAN PLATELET VOLUME 9.9 fl (7.4-10.4); NEUTROPHILS % 65.4 % (40.0-76.0); PLATELET 218 x1000/uL (130-400); RED BLOOD CELL COUNT 4.94 mill/uL (4.7-6.1); RED CELL DISTRIBUTION WIDTH 15.7 % (11.6-14.6)
[2021-05-27] MEDS ORDERED: MORPHINE SULFATE 4 MG/ML CPJ (NOT FOR IM USE) IV ONE (01:00)
[2021-05-27] MEDS ORDERED: ASPIRIN 325MG EC TABLET PO NR (01:00)
[2021-05-27 01:10] LABS: CHLORIDE 106 mEq/L (98-107)
[2021-05-27 01:14] LABS: ETHANOL BLOOD < 10 mg/dL
[2021-05-27 06:36] LABS: CLARITY URINE CLEAR (CLEAR); COLOR URINE YELLOW (YELLOW); KETONES URINE 1+ (NEGATIVE); LEUKOCYTE ESTERASE URINE 1+ (NEGATIVE); NITRITE URINE NEGATIVE (NEGATIVE); OCCULT BLOOD URINE NEGATIVE (NEGATIVE); PH URINE 6.5 (4.5-8.0); PROTEIN URINE TRACE (NEGATIVE); SPECIFIC GRAVITY URINE 1.029 (1.005-1.030)
[2021-05-27 06:49] LABS: *AMPHETAMINES SCREEN URINE NEGATIVE (NEGATIVE); *BARBITURATES SCREEN URINE NEGATIVE (NEGATIVE); *BENZODIAZEPINES SCREEN URINE NEGATIVE (NEGATIVE); *COCAINE SCREEN URINE NEGATIVE (NEGATIVE); METHADONE URINE SCREEN NEGATIVE (NEGATIVE); OPIATES URINE SCREEN PRESUMTIVE POSITIVE (NEGATIVE)
[2021-05-27 06:50] LABS: CANNABINOID URINE SCREEN NEGATIVE (NEGATIVE); PHENCYCLIDINE URINE SCREEN NEGATIVE (NEGATIVE)
[2021-05-27] MEDS ORDERED: HYDROCODONE/ACETAMINOPHEN 10/325MG TABLET PO PRN (08:45)
[2021-05-27] MEDS ORDERED: DEXTROSE 50% WATER 50ML SYRINGE IV PRN (10:30)
[2021-05-27] MEDS ORDERED: DORZOLAM/TIMOLOL 2.23/0.68% OPHTH DROPS 10ML BOTHEYE SCH (10:30)
[2021-05-27] MEDS ORDERED: ACETAMINOPHEN 325MG TABLET PO PRN (10:30)
[2021-05-27] MEDS: ATORVASTATIN CALCIUM 10MG TABLET PO SCH (11:32)
[2021-05-27] MEDS: APIXABAN 5 MG TABLET PO SCH ×2 (11:42→18:24)
[2021-05-27] MEDS: TAMSULOSIN HCL 0.4MG SR CAPSULE PO SCH (11:42)
[2021-05-27] MEDS: METFORMIN HCL 850MG TABLET PO SCH ×2 (11:43→18:24)
[2021-05-27] MEDS: BRIMONIDINE 0.2% OPHTH DROPS 5ML EACHEYE SCH ×2 (11:45→18:23)
[2021-05-27] MEDS: DORZOLAM/TIMOLOL 2.23/0.68% OPHTH DROPS 10ML EACHEYE SCH ×2 (11:45→18:23)
[2021-05-27] MEDS: MORPHINE SULFATE 2 MG/ML CPJ (NOT FOR IM USE) IV PRN ×3 (12:57→22:30)
[2021-05-27 13:59] LABS: BASOPHILS % 0.7 % (0.0-2.0); EOSINOPHILS % 2.1 % (0.0-5.0); HEMATOCRIT. 37.8 % (42.0-52.0); HEMOGLOBIN. 12.6 g/dL (14.0-18.0); LYMPHOCYTES % 17.3 % (20.0-50.0); MEAN CORPUSCULAR HEMOGLOBIN 28.9 pg (28.0-32.0); MEAN CORPUSCULAR VOLUME 86.9 fL (80.0-94.0); MEAN PLATELET VOLUME 10.3 fl (7.4-10.4); MONOCYTES % 10.2 % (2.0-8.0); NEUTROPHILS % 69.7 % (40.0-76.0); PLATELET 184 x1000/uL (130-400); RED BLOOD CELL COUNT 4.35 mill/uL (4.7-6.1); RED CELL DISTRIBUTION WIDTH 15.5 % (11.6-14.6)
[2021-05-27 14:13] LABS: LDL CHOLESTEROL 86 mg/dL (5-100)
[2021-05-27 14:16] LABS: HDL CHOLESTEROL 34 mg/dL (40-59)
[2021-05-27] MEDS: BLOOD SUGAR DIAGNOSTIC STRIP TEST SCH ×3 (14:33→21:00)
[2021-05-27] MEDS: INSULIN LISPRO 100 UNITS/ML SUBCUT SCH ×3 (14:37→22:41)
[2021-05-27 21:00] VITALS: BP 118/67
[2021-05-28 04:00] VITALS: BP 98/59
[2021-05-28] MEDS: BLOOD SUGAR DIAGNOSTIC STRIP TEST SCH ×4 (07:20→21:00)
[2021-05-28] MEDS: INSULIN LISPRO 100 UNITS/ML SUBCUT SCH ×4 (07:50→21:00)
[2021-05-28 08:00] VITALS: BP 110/50
[2021-05-28] MEDS ORDERED: ASPIRIN 325MG TABLET PO SCH (09:00)
[2021-05-28] MEDS: APIXABAN 5 MG TABLET PO SCH (09:13)
[2021-05-28] MEDS: ASPIRIN 81MG EC TABLET PO SCH (09:13)
[2021-05-28] MEDS: TAMSULOSIN HCL 0.4MG SR CAPSULE PO SCH (09:14)
[2021-05-28] MEDS: ATORVASTATIN CALCIUM 10MG TABLET PO SCH (09:15)
[2021-05-28] MEDS: MORPHINE SULFATE 2 MG/ML CPJ (NOT FOR IM USE) IV PRN ×3 (10:47→21:42)
[2021-05-28] MEDS: METFORMIN HCL 850MG TABLET PO SCH ×2 (10:54→17:11)
[2021-05-28] MEDS: DORZOLAM/TIMOLOL 2.23/0.68% OPHTH DROPS 10ML EACHEYE SCH ×2 (10:54→17:11)
[2021-05-28] MEDS: BRIMONIDINE 0.2% OPHTH DROPS 5ML EACHEYE SCH ×2 (10:55→17:12)
[2021-05-28 12:00] VITALS: BP 112/56
[2021-05-28 16:00] VITALS: BP 103/88
[2021-05-28 20:00] VITALS: BP 100/49
[2021-05-29] MEDS: MORPHINE SULFATE 2 MG/ML CPJ (NOT FOR IM USE) IV PRN ×2 (02:45→09:33)
[2021-05-29 04:00] VITALS: BP 93/46
[2021-05-29] MEDS: BLOOD SUGAR DIAGNOSTIC STRIP TEST SCH ×2 (07:20→12:20)
[2021-05-29] MEDS: INSULIN LISPRO 100 UNITS/ML SUBCUT SCH ×2 (07:50→13:08)
[2021-05-29 08:00] VITALS: BP 98/55
[2021-05-29] MEDS: ISOSORBIDE MONONITRATE 60MG TABLET SR 24HR PO SCH ×2 (09:15→09:32)
[2021-05-29] MEDS: DORZOLAM/TIMOLOL 2.23/0.68% OPHTH DROPS 10ML EACHEYE SCH (09:22)
[2021-05-29] MEDS: TAMSULOSIN HCL 0.4MG SR CAPSULE PO SCH (09:22)
[2021-05-29] MEDS: BRIMONIDINE 0.2% OPHTH DROPS 5ML EACHEYE SCH (09:22)
[2021-05-29] MEDS: METFORMIN HCL 850MG TABLET PO SCH (09:22)
[2021-05-29] MEDS: ASPIRIN 81MG EC TABLET PO SCH (09:22)
[2021-05-29] MEDS: ATORVASTATIN CALCIUM 10MG TABLET PO SCH (09:30)
[2021-05-29 12:00] VITALS: BP 97/56
[2021-05-29] MEDS ORDERED: APIXABAN 5 MG TABLET PO SCH (17:00)
[2021-05-29 17:04] VITALS: BP 97/56
[2021-05-29 17:11] VITALS: BP_SYST 97; BP_SYST 99; BP_DIAS 56; BP_DIAS 60
== END 2021-05-29 18:23 | disposition home or self-care (01) | DRG 203 ==
LOC: ER 05-27 00:13 → 6WST 05-27 05:02 → ENRESERV 05-27 20:24
PROVIDERS: ADMIT Family Medicine; ATTEND Family Medicine
DX: M94.0 Chondrocostal junction syndrome [Tietze] (principal); I49.5 Sick sinus syndrome; E11.9 Type 2 diabetes mellitus without complications; I10 Essential (primary) hypertension; E78.5 Hyperlipidemia, unspecified; N40.0 Benign prostatic hyperplasia without lower urinary tract symptoms; E78.00 Pure hypercholesterolemia, unspecified; Z20.822 Contact with and (suspected) exposure to COVID-19; Z86.718 Personal history of other venous thrombosis and embolism; Z86.711 Personal history of pulmonary embolism; Z91.041 Radiographic dye allergy status; Z91.013 Allergy to seafood; Z91.018 Allergy to other foods; Z79.899 Other long term (current) drug therapy; Z79.1 Long term (current) use of non-steroidal anti-inflammatories (NSAID); Z87.891 Personal history of nicotine dependence; Z82.49 Family history of ischemic heart disease and other diseases of the circulatory system; Z95.0 Presence of cardiac pacemaker; H40.9 Unspecified glaucoma
CPT/HCPCS: 36415; 71045; 80053; 80061; 80305; 80320; 81003; 82962; 83036; 83880; 84484; 85025; 87426; 93005; 93306; 99291; C1893; J1815; J2270; G0480

== ENCOUNTER 2021-06-02 19:12 | Emergency (ER) | payer MEDICARE, MEDICAID ==
[~2021-06-02] VITALS: Ht 172.7 cm; Wt 89.0 kg
[2021-06-02 19:14] VITALS: BP 115/67
[2021-06-02 23:13] LABS: BASOPHILS % 0.7 % (0.0-2.0); EOSINOPHILS % 2.9 % (0.0-5.0); HEMATOCRIT. 38.2 % (42.0-52.0); LYMPHOCYTES % 22.9 % (20.0-50.0); MEAN CORPUSCULAR HEMOGLOBIN 29.8 pg (28.0-32.0); MONOCYTES % 10.7 % (2.0-8.0); NEUTROPHILS % 62.8 % (40.0-76.0); PLATELET 169 x1000/uL (130-400); RED BLOOD CELL COUNT 4.34 mill/uL (4.7-6.1); RED CELL DISTRIBUTION WIDTH 15.9 % (11.6-14.6)
[2021-06-02 23:17] LABS: CHLORIDE 109 mEq/L (98-107)
== END 2021-06-03 00:32 | disposition left against medical advice (07) ==
LOC: ER 19:12
DX: R07.89 Other chest pain (principal); E78.00 Pure hypercholesterolemia, unspecified; E11.9 Type 2 diabetes mellitus without complications; Z91.041 Radiographic dye allergy status; Z79.82 Long term (current) use of aspirin; Z91.013 Allergy to seafood; Z79.899 Other long term (current) drug therapy
CPT/HCPCS: 36415; 71045; 80053; 83880; 84484; 85025; 93005; 99285

== ENCOUNTER 2021-07-24 03:37 | Emergency (ER) | payer MEDICARE, MEDICAID ==
[~2021-07-24] VITALS: Ht 172.7 cm; Wt 89.1 kg
[2021-07-24 03:49] VITALS: BP 127/78
== END 2021-07-24 07:58 | disposition left against medical advice (07) ==
LOC: ER 03:37
DX: R07.89 Other chest pain (principal); Z53.21 Procedure and treatment not carried out due to patient leaving prior to being seen by health care provider
CPT/HCPCS: 93005; 99281

== ENCOUNTER 2021-07-30 18:31 | Emergency (ER) | payer MEDICARE, MEDICAID ==
[~2021-07-30] VITALS: Ht 172.7 cm; Wt 89.0 kg
[2021-07-30 22:00] VITALS: BP 142/88
[2021-07-30 22:04] LABS: BASOPHILS % 0.4 % (0.0-2.0); EOSINOPHILS % 2.2 % (0.0-5.0); HEMOGLOBIN. 14.2 g/dL (14.0-18.0); MEAN CORPUSCULAR VOLUME 86.6 fL (80.0-94.0); MEAN PLATELET VOLUME 9.7 fl (7.4-10.4); MONOCYTES % 11.8 % (2.0-8.0); NEUTROPHILS % 66.6 % (40.0-76.0); PLATELET 203 x1000/uL (130-400); RED BLOOD CELL COUNT 5.08 mill/uL (4.7-6.1); RED CELL DISTRIBUTION WIDTH 16.6 % (11.6-14.6)
[2021-07-30 22:08] LABS: CHLORIDE 111 mEq/L (98-107)
== END 2021-07-31 00:49 | disposition home or self-care (01) ==
LOC: ER 18:31
DX: R07.89 Other chest pain (principal); E11.9 Type 2 diabetes mellitus without complications; E78.00 Pure hypercholesterolemia, unspecified; H40.9 Unspecified glaucoma; Z79.899 Other long term (current) drug therapy
CPT/HCPCS: 36415; 71045; 80053; 84484; 85025; 93005; 99285

== ENCOUNTER 2021-08-23 21:54 | Emergency (ER) | payer MEDICARE, MEDICAID ==
[~2021-08-23] VITALS: Ht 172.7 cm; Wt 87.8 kg
[2021-08-23] MEDS ORDERED: ASPIRIN 81MG TABLET PO ONE (23:00)
[2021-08-23 23:23] LABS: BASOPHILS % 0.4 % (0.0-2.0); EOSINOPHILS % 2.5 % (0.0-5.0); HEMATOCRIT. 40.9 % (42.0-52.0); HEMOGLOBIN. 13.1 g/dL (14.0-18.0); LYMPHOCYTES % 18.5 % (20.0-50.0); MEAN CORPUSCULAR HEMOGLOBIN 27.6 pg (28.0-32.0); MONOCYTES % 11.2 % (2.0-8.0); NEUTROPHILS % 67.4 % (40.0-76.0); PLATELET 166 x1000/uL (130-400); RED BLOOD CELL COUNT 4.76 mill/uL (4.7-6.1); RED CELL DISTRIBUTION WIDTH 17.2 % (11.6-14.6)
[2021-08-23 23:26] LABS: CHLORIDE 110 mEq/L (98-107)
[2021-08-24] MEDS ORDERED: ACETAMINOPHEN 325MG TABLET PO ONE (00:30)
[2021-08-24 00:36] LABS: *AMPHETAMINES SCREEN URINE NEGATIVE (NEGATIVE); *BARBITURATES SCREEN URINE NEGATIVE (NEGATIVE); *BENZODIAZEPINES SCREEN URINE NEGATIVE (NEGATIVE); *COCAINE SCREEN URINE NEGATIVE (NEGATIVE); CANNABINOID URINE SCREEN NEGATIVE (NEGATIVE); METHADONE URINE SCREEN NEGATIVE (NEGATIVE); OPIATES URINE SCREEN PRESUMTIVE POSITIVE (NEGATIVE); PHENCYCLIDINE URINE SCREEN NEGATIVE (NEGATIVE)
[2021-08-24 03:13] VITALS: BP 109/58
== END 2021-08-24 03:15 | disposition home or self-care (01) ==
LOC: ER 21:54
DX: R07.89 Other chest pain (principal); R42 Dizziness and giddiness; I10 Essential (primary) hypertension; I25.10 Atherosclerotic heart disease of native coronary artery without angina pectoris; Z98.890 Other specified postprocedural states; Z79.899 Other long term (current) drug therapy
CPT/HCPCS: 36415; 71045; 80053; 80305; 83880; 84484; 85025; 93005; 99285

== ENCOUNTER 2021-10-26 09:43 | Inpatient (IN) | payer MEDICARE, MEDICAID ==
[~2021-10-26] VITALS: Ht 172.7 cm; Wt 88.5 kg
[2021-10-26] MEDS ORDERED: ASPIRIN 325MG EC TABLET PO SCH (10:45)
[2021-10-26] MEDS ORDERED: MORPHINE SULFATE 4 MG/ML CPJ (NOT FOR IM USE) IV SCH (10:45)
[2021-10-26 11:03] LABS: BASOPHILS % 0.6 % (0.0-2.0); EOSINOPHILS % 3.2 % (0.0-5.0); HEMATOCRIT. 37.4 % (42.0-52.0); HEMOGLOBIN. 12.4 g/dL (14.0-18.0); LYMPHOCYTES % 18.5 % (20.0-50.0); MEAN CORPUSCULAR HEMOGLOBIN 28.7 pg (28.0-32.0); MEAN CORPUSCULAR VOLUME 86.4 fL (80.0-94.0); MEAN PLATELET VOLUME 9.7 fl (7.4-10.4); MONOCYTES % 9.6 % (2.0-8.0); NEUTROPHILS % 68.1 % (40.0-76.0); PLATELET 158 x1000/uL (130-400); RED BLOOD CELL COUNT 4.33 mill/uL (4.7-6.1); RED CELL DISTRIBUTION WIDTH 16.2 % (11.6-14.6)
[2021-10-26 11:11] LABS: CHLORIDE 107 mEq/L (98-107)
[2021-10-26 11:29] LABS: ETHANOL BLOOD < 10 mg/dL
[2021-10-26 13:02] LABS: *AMPHETAMINES SCREEN URINE NEGATIVE (NEGATIVE); *BARBITURATES SCREEN URINE NEGATIVE (NEGATIVE); *BENZODIAZEPINES SCREEN URINE NEGATIVE (NEGATIVE); *COCAINE SCREEN URINE NEGATIVE (NEGATIVE); CANNABINOID URINE SCREEN NEGATIVE (NEGATIVE); METHADONE URINE SCREEN NEGATIVE (NEGATIVE); OPIATES URINE SCREEN PRESUMTIVE POSITIVE (NEGATIVE); PHENCYCLIDINE URINE SCREEN NEGATIVE (NEGATIVE)
[2021-10-26 18:00] VITALS: BP 135/72
[2021-10-26 18:04] VITALS: BP 134/67
[2021-10-26] MEDS ORDERED: HYDROCODONE/ACETAMINOPHEN 5/325MG TABLET PO PRN (18:30)
[2021-10-26 20:00] VITALS: BP 132/81
[2021-10-26] MEDS: METOPROLOL TARTRATE 25MG TABLET PO SCH (21:00)
[2021-10-26] MEDS: ATORVASTATIN CALCIUM 20MG TABLET PO SCH (22:27)
[2021-10-27] VITALS: BP 113/61
[2021-10-27 04:00] VITALS: BP 122/65
[2021-10-27] MEDS: ACETAMINOPHEN 325MG TABLET PO PRN ×2 (04:07→20:00)
[2021-10-27] MEDS: METFORMIN HCL 500MG TABLET PO SCH ×2 (06:45→17:55)
[2021-10-27 08:00] VITALS: BP 115/49
[2021-10-27] MEDS: METOPROLOL TARTRATE 25MG TABLET PO SCH ×2 (09:00→20:00)
[2021-10-27] MEDS ORDERED: DORZOLAM/TIMOLOL 2.23/0.68% OPHTH DROPS 10ML BOTHEYE SCH (09:00)
[2021-10-27] MEDS ORDERED: METOPROLOL SUCCINATE 50MG ER TABLET PO SCH (09:00)
[2021-10-27] MEDS: BRIMONIDINE 0.2% OPHTH DROPS 5ML EACHEYE SCH ×2 (09:11→17:56)
[2021-10-27] MEDS: APIXABAN 5 MG TABLET PO SCH ×2 (09:11→17:56)
[2021-10-27] MEDS: ASPIRIN 81MG EC TABLET PO SCH (09:11)
[2021-10-27] MEDS: FINASTERIDE 5MG TABLET PO SCH (09:11)
[2021-10-27] MEDS: TAMSULOSIN HCL 0.4MG SR CAPSULE PO SCH (09:11)
[2021-10-27] MEDS: DORZOLAM/TIMOLOL 2.23/0.68% OPHTH DROPS 10ML EACHEYE SCH ×2 (11:16→17:56)
[2021-10-27 12:00] VITALS: BP 104/46
[2021-10-27 16:00] VITALS: BP 114/51
[2021-10-27] MEDS ORDERED: NALOXONE HCL 0.4MG/ML VIAL IV PRN (16:15)
[2021-10-27 20:00] VITALS: BP 118/60
[2021-10-27] MEDS: ATORVASTATIN CALCIUM 20MG TABLET PO SCH (20:00)
[2021-10-28 04:00] VITALS: BP 125/70
[2021-10-28] MEDS: METFORMIN HCL 500MG TABLET PO SCH ×2 (06:36→17:02)
[2021-10-28 08:00] VITALS: BP 106/63
[2021-10-28] MEDS: METOPROLOL TARTRATE 25MG TABLET PO SCH ×2 (09:00→21:00)
[2021-10-28] MEDS: ASPIRIN 81MG EC TABLET PO SCH (09:20)
[2021-10-28] MEDS: APIXABAN 5 MG TABLET PO SCH ×2 (09:20→17:02)
[2021-10-28] MEDS: TAMSULOSIN HCL 0.4MG SR CAPSULE PO SCH (09:20)
[2021-10-28] MEDS: FINASTERIDE 5MG TABLET PO SCH (09:21)
[2021-10-28] MEDS: BRIMONIDINE 0.2% OPHTH DROPS 5ML EACHEYE SCH ×2 (09:23→17:03)
[2021-10-28] MEDS: DORZOLAM/TIMOLOL 2.23/0.68% OPHTH DROPS 10ML EACHEYE SCH ×2 (09:23→17:04)
[2021-10-28] MEDS: ACETAMINOPHEN 325MG TABLET PO PRN (09:31)
[2021-10-28 12:00] VITALS: BP 116/55
[2021-10-28 15:44] VITALS: BP 132/66
[2021-10-28 20:00] VITALS: BP 123/45
[2021-10-28] MEDS: ATORVASTATIN CALCIUM 20MG TABLET PO SCH (21:02)
[2021-10-29] VITALS: BP 121/63
[2021-10-29] MEDS: ACETAMINOPHEN 325MG TABLET PO PRN ×2 (03:14→21:11)
[2021-10-29 04:00] VITALS: BP 114/61
[2021-10-29] MEDS: METFORMIN HCL 500MG TABLET PO SCH ×2 (06:16→17:31)
[2021-10-29] MEDS: METOPROLOL TARTRATE 25MG TABLET PO SCH ×2 (09:00→21:00)
[2021-10-29] MEDS: APIXABAN 5 MG TABLET PO SCH ×2 (09:03→17:31)
[2021-10-29] MEDS: FINASTERIDE 5MG TABLET PO SCH (09:03)
[2021-10-29] MEDS: BRIMONIDINE 0.2% OPHTH DROPS 5ML EACHEYE SCH ×2 (09:04→17:32)
[2021-10-29] MEDS: DORZOLAM/TIMOLOL 2.23/0.68% OPHTH DROPS 10ML EACHEYE SCH ×2 (09:04→17:33)
[2021-10-29] MEDS: TAMSULOSIN HCL 0.4MG SR CAPSULE PO SCH (09:04)
[2021-10-29] MEDS: ASPIRIN 81MG EC TABLET PO SCH (09:07)
[2021-10-29 12:00] VITALS: BP 103/63
[2021-10-29 16:00] VITALS: BP 118/69
[2021-10-29 20:00] VITALS: BP 112/67
[2021-10-29] MEDS: ATORVASTATIN CALCIUM 20MG TABLET PO SCH (21:11)
[2021-10-30] VITALS: BP 122/67
[2021-10-30 04:00] VITALS: BP 145/79
[2021-10-30] MEDS: METFORMIN HCL 500MG TABLET PO SCH ×2 (06:21→16:19)
[2021-10-30 08:00] VITALS: BP 110/58
[2021-10-30] MEDS: METOPROLOL TARTRATE 25MG TABLET PO SCH ×2 (09:00→21:50)
[2021-10-30] MEDS: TAMSULOSIN HCL 0.4MG SR CAPSULE PO SCH (09:05)
[2021-10-30] MEDS: FINASTERIDE 5MG TABLET PO SCH (09:05)
[2021-10-30] MEDS: APIXABAN 5 MG TABLET PO SCH ×2 (09:05→16:19)
[2021-10-30] MEDS: ASPIRIN 81MG EC TABLET PO SCH (09:05)
[2021-10-30] MEDS: DORZOLAM/TIMOLOL 2.23/0.68% OPHTH DROPS 10ML EACHEYE SCH ×2 (09:06→16:20)
[2021-10-30] MEDS: BRIMONIDINE 0.2% OPHTH DROPS 5ML EACHEYE SCH ×2 (09:06→16:19)
[2021-10-30 12:00] VITALS: BP 108/55
[2021-10-30 16:00] VITALS: BP 132/75
[2021-10-30 20:00] VITALS: BP 114/65
[2021-10-30] MEDS: ACETAMINOPHEN 325MG TABLET PO PRN (21:49)
[2021-10-30] MEDS: ATORVASTATIN CALCIUM 20MG TABLET PO SCH (21:50)
[2021-10-31] VITALS: BP 102/57
[2021-10-31 04:00] VITALS: BP 114/64
[2021-10-31 05:54] LABS: BASOPHILS % 0.7 % (0.0-2.0); EOSINOPHILS % 2.7 % (0.0-5.0); HEMATOCRIT. 41.7 % (42.0-52.0); HEMOGLOBIN. 13.6 g/dL (14.0-18.0); LYMPHOCYTES % 23.1 % (20.0-50.0); MEAN CORPUSCULAR HEMOGLOBIN 28.2 pg (28.0-32.0); MEAN CORPUSCULAR VOLUME 86.2 fL (80.0-94.0); MEAN PLATELET VOLUME 10.2 fl (7.4-10.4); MONOCYTES % 10.7 % (2.0-8.0); NEUTROPHILS % 62.8 % (40.0-76.0); PLATELET 150 x1000/uL (130-400); RED BLOOD CELL COUNT 4.84 mill/uL (4.7-6.1); RED CELL DISTRIBUTION WIDTH 15.8 % (11.6-14.6)
[2021-10-31 06:17] LABS: CHLORIDE 106 mEq/L (98-107)
[2021-10-31 08:00] VITALS: BP 110/70
[2021-10-31] MEDS: METOPROLOL TARTRATE 25MG TABLET PO SCH ×2 (08:33→20:09)
[2021-10-31] MEDS: TAMSULOSIN HCL 0.4MG SR CAPSULE PO SCH (08:38)
[2021-10-31] MEDS: ASPIRIN 81MG EC TABLET PO SCH (08:38)
[2021-10-31] MEDS: METFORMIN HCL 500MG TABLET PO SCH ×2 (08:38→17:13)
[2021-10-31] MEDS: APIXABAN 5 MG TABLET PO SCH ×2 (08:38→17:12)
[2021-10-31] MEDS: BRIMONIDINE 0.2% OPHTH DROPS 5ML EACHEYE SCH ×2 (08:39→17:19)
[2021-10-31] MEDS: DORZOLAM/TIMOLOL 2.23/0.68% OPHTH DROPS 10ML EACHEYE SCH ×2 (08:39→17:19)
[2021-10-31] MEDS: FINASTERIDE 5MG TABLET PO SCH (08:44)
[2021-10-31 12:00] VITALS: BP 121/70
[2021-10-31 16:00] VITALS: BP 112/69
[2021-10-31 20:00] VITALS: BP 105/61
[2021-10-31] MEDS: ATORVASTATIN CALCIUM 20MG TABLET PO SCH (20:14)
[2021-11-01] VITALS: BP 107/63
[2021-11-01] MEDS: METFORMIN HCL 500MG TABLET PO SCH (07:10)
[2021-11-01 07:47] VITALS: BP 107/59
[2021-11-01] MEDS: METOPROLOL TARTRATE 25MG TABLET PO SCH (09:00)
[2021-11-01] MEDS: DORZOLAM/TIMOLOL 2.23/0.68% OPHTH DROPS 10ML EACHEYE SCH (09:12)
[2021-11-01] MEDS: BRIMONIDINE 0.2% OPHTH DROPS 5ML EACHEYE SCH (09:12)
[2021-11-01] MEDS: ASPIRIN 81MG EC TABLET PO SCH (09:12)
[2021-11-01] MEDS: APIXABAN 5 MG TABLET PO SCH (09:12)
[2021-11-01] MEDS: TAMSULOSIN HCL 0.4MG SR CAPSULE PO SCH (09:12)
[2021-11-01] MEDS: FINASTERIDE 5MG TABLET PO SCH (09:13)
[2021-11-01 11:25] VITALS: BP 107/59
[2021-11-01 12:00] VITALS: BP 128/79
== END 2021-11-01 14:15 | disposition home or self-care (01) | DRG 392 ==
LOC: ER 09:43 → 7EST 14:24 → EDBEDREQTM 14:27 → EDBEDREQ 14:27 → ENRESERV 16:42
PROVIDERS: ADMIT Internal Medicine; ATTEND Internal Medicine
DX: K21.9 Gastro-esophageal reflux disease without esophagitis (principal); E44.1 Mild protein-calorie malnutrition; I25.10 Atherosclerotic heart disease of native coronary artery without angina pectoris; E11.9 Type 2 diabetes mellitus without complications; E78.5 Hyperlipidemia, unspecified; I10 Essential (primary) hypertension; Z79.01 Long term (current) use of anticoagulants; Z86.711 Personal history of pulmonary embolism; Z95.1 Presence of aortocoronary bypass graft; Z91.013 Allergy to seafood; Z88.8 Allergy status to other drugs, medicaments and biological substances; Z68.29 Body mass index [BMI] 29.0-29.9, adult
CPT/HCPCS: 36415; 71045; 80053; 80305; 80320; 83880; 84484; 85025; 93005; 93306; 99285; J2270; G0480

== ENCOUNTER 2021-11-23 08:38 | Emergency (ER) | payer MEDICARE, MEDICAID ==
[~2021-11-23] VITALS: Ht 172.7 cm; Wt 89.0 kg
[2021-11-23] MEDS ORDERED: NITROGLYCERIN 0.4MG TABLET SL SL PRN (09:15)
[2021-11-23] MEDS ORDERED: ASPIRIN 325MG EC TABLET PO ONE (09:30)
[2021-11-23 10:11] LABS: BASOPHILS % 0.6 % (0.0-2.0); HEMATOCRIT. 38.7 % (42.0-52.0); HEMOGLOBIN. 12.7 g/dL (14.0-18.0); LYMPHOCYTES % 18.3 % (20.0-50.0); MEAN CORPUSCULAR HEMOGLOBIN 28.5 pg (28.0-32.0); MEAN CORPUSCULAR VOLUME 87.1 fL (80.0-94.0); MEAN PLATELET VOLUME 10.3 fl (7.4-10.4); MONOCYTES % 7.7 % (2.0-8.0); NEUTROPHILS % 71.4 % (40.0-76.0); PLATELET 191 x1000/uL (130-400); RED BLOOD CELL COUNT 4.44 mill/uL (4.7-6.1); RED CELL DISTRIBUTION WIDTH 15.6 % (11.6-14.6)
[2021-11-23] MEDS ORDERED: MORPHINE SULFATE 4 MG/ML CPJ (NOT FOR IM USE) IV ONE (10:15)
[2021-11-23 10:18] LABS: CHLORIDE 109 mEq/L (98-107)
[2021-11-23 12:42] VITALS: BP 130/60
== END 2021-11-23 13:31 | disposition home or self-care (01) ==
LOC: ER 08:38 → CANBEDREQ 19:59
DX: R07.89 Other chest pain (principal); I10 Essential (primary) hypertension; Z91.041 Radiographic dye allergy status; Z91.013 Allergy to seafood; Z79.899 Other long term (current) drug therapy; Z98.890 Other specified postprocedural states
CPT/HCPCS: 36415; 71045; 80053; 83880; 84484; 85025; 85379; 93005; 99285; J2270

== ENCOUNTER 2021-11-28 21:52 | Emergency (ER) | payer MEDICARE, MEDICAID ==
[~2021-11-28] VITALS: Ht 172.7 cm; Wt 88.0 kg
[2021-11-28 22:32] VITALS: BP 132/78
[2021-11-28] MEDS ORDERED: ASPIRIN 325MG EC TABLET PO ONE (22:45)
== END 2021-11-29 22:53 | disposition home or self-care (01) ==
LOC: ER 21:52
DX: R07.89 Other chest pain (principal); I10 Essential (primary) hypertension; R94.31 Abnormal electrocardiogram [ECG] [EKG]; Z95.1 Presence of aortocoronary bypass graft; Z86.711 Personal history of pulmonary embolism; Z79.82 Long term (current) use of aspirin; Z79.01 Long term (current) use of anticoagulants; Z79.899 Other long term (current) drug therapy; Z91.041 Radiographic dye allergy status; Z91.013 Allergy to seafood
CPT/HCPCS: 93005; 99283

== ENCOUNTER 2022-01-02 10:24 | Emergency (ER) | payer MEDICARE, MEDICAID ==
[~2022-01-02] VITALS: Ht 172.7 cm; Wt 88.0 kg
[2022-01-02 11:59] LABS: BASOPHILS % 0.6 % (0.0-2.0); EOSINOPHILS % 2.4 % (0.0-5.0); HEMATOCRIT. 40.2 % (42.0-52.0); HEMOGLOBIN. 13.3 g/dL (14.0-18.0); LYMPHOCYTES % 17.1 % (20.0-50.0); MEAN CORPUSCULAR HEMOGLOBIN 29.1 pg (28.0-32.0); MEAN CORPUSCULAR VOLUME 88.1 fL (80.0-94.0); MEAN PLATELET VOLUME 10.1 fl (7.4-10.4); MONOCYTES % 9.5 % (2.0-8.0); NEUTROPHILS % 70.4 % (40.0-76.0); PLATELET 156 x1000/uL (130-400); RED BLOOD CELL COUNT 4.56 mill/uL (4.7-6.1); RED CELL DISTRIBUTION WIDTH 15.8 % (11.6-14.6)
[2022-01-02] MEDS ORDERED: KETOROLAC 30MG/ML VIAL IV ONE (12:15)
[2022-01-02 12:19] LABS: CHLORIDE 106 mEq/L (98-107)
[2022-01-02] MEDS ORDERED: TOPUD PO (12:36)
[2022-01-02 13:10] VITALS: BP 126/67
== END 2022-01-02 13:00 | disposition home or self-care (01) ==
LOC: ER 10:24
DX: R07.89 Other chest pain (principal); I10 Essential (primary) hypertension; E11.9 Type 2 diabetes mellitus without complications; I25.2 Old myocardial infarction; Z95.1 Presence of aortocoronary bypass graft; Z79.899 Other long term (current) drug therapy
CPT/HCPCS: 36415; 71045; 80053; 83880; 84484; 85025; 93005; 99285; J1885

== ENCOUNTER 2022-01-02 21:13 | Emergency (ER) | payer MEDICARE, MEDICAID ==
[~2022-01-02] VITALS: Ht 172.7 cm; Wt 84.0 kg
[2022-01-02 21:22] VITALS: BP 144/74
== END 2022-01-03 01:15 | disposition home or self-care (01) ==
LOC: ER 21:13
DX: G89.29 Other chronic pain (principal); R07.89 Other chest pain; I10 Essential (primary) hypertension; I25.2 Old myocardial infarction; Z95.0 Presence of cardiac pacemaker; Z86.711 Personal history of pulmonary embolism; Z79.01 Long term (current) use of anticoagulants; Z79.899 Other long term (current) drug therapy
CPT/HCPCS: 93005; 99283

== ENCOUNTER 2022-01-04 23:16 | Emergency (ER) | payer MEDICARE, MEDICAID ==
[~2022-01-04] VITALS: Ht 167.6 cm; Wt 83.5 kg
[2022-01-05 05:15] LABS: BASOPHILS % 0.5 % (0.0-2.0); HEMATOCRIT. 39.8 % (42.0-52.0); HEMOGLOBIN. 12.9 g/dL (14.0-18.0); LYMPHOCYTES % 19.2 % (20.0-50.0); MEAN CORPUSCULAR VOLUME 89.6 fL (80.0-94.0); MEAN PLATELET VOLUME 10.1 fl (7.4-10.4); MONOCYTES % 11.7 % (2.0-8.0); NEUTROPHILS % 65.6 % (40.0-76.0); PLATELET 158 x1000/uL (130-400); RED BLOOD CELL COUNT 4.44 mill/uL (4.7-6.1); RED CELL DISTRIBUTION WIDTH 16.1 % (11.6-14.6)
[2022-01-05 05:27] LABS: PROTHROMBIN TIME 11.2 sec (9.6-11.0)
[2022-01-05 05:28] LABS: CHLORIDE 105 mEq/L (98-107)
[2022-01-05] MEDS ORDERED: KETOROLAC 30MG/ML VIAL IV ONE (05:30)
[2022-01-05 07:00] VITALS: BP 132/75
== END 2022-01-05 07:33 | disposition home or self-care (01) ==
LOC: ER 23:16
DX: R07.89 Other chest pain (principal); R42 Dizziness and giddiness; M79.602 Pain in left arm; M79.601 Pain in right arm; Z95.810 Presence of automatic (implantable) cardiac defibrillator
CPT/HCPCS: 36415; 71045; 80053; 83880; 84484; 85025; 93005; 99285

== ENCOUNTER 2022-02-21 08:49 | Emergency (ER) | payer MEDICARE, MEDICAID ==
[~2022-02-21] VITALS: Ht 172.7 cm; Wt 88.0 kg
[2022-02-21 08:55] VITALS: BP 116/74
== END 2022-02-21 17:01 | disposition left against medical advice (07) ==
LOC: ER 08:49
DX: Z53.21 Procedure and treatment not carried out due to patient leaving prior to being seen by health care provider (principal); R07.9 Chest pain, unspecified
CPT/HCPCS: 93005

== ENCOUNTER 2022-02-26 20:27 | Emergency (ER) | payer MEDICARE, MEDICAID ==
[~2022-02-26] VITALS: Ht 172.7 cm; Wt 89.9 kg
[2022-02-26 21:49] VITALS: BP 134/83
[2022-02-27] MEDS ORDERED: ASPIRIN 325MG EC TABLET PO ONE (01:30)
== END 2022-02-27 02:10 | disposition home or self-care (01) ==
LOC: ER 20:27
DX: R07.89 Other chest pain (principal); E78.00 Pure hypercholesterolemia, unspecified; E11.9 Type 2 diabetes mellitus without complications; Z79.899 Other long term (current) drug therapy; Z91.041 Radiographic dye allergy status; Z98.890 Other specified postprocedural states
CPT/HCPCS: 93005; 99283

== ENCOUNTER 2022-03-28 13:59 | Emergency (ER) | payer MEDICARE, MEDICAID ==
[~2022-03-28] VITALS: Ht 167.6 cm; Wt 91.0 kg
[2022-03-28] MEDS ORDERED: MORPHINE SULFATE 4 MG/ML CPJ (NOT FOR IM USE) IV ONE (16:30)
[2022-03-28] MEDS ORDERED: SODIUM CHLORIDE 0.9% 500 ML IV ONE (16:30)
[2022-03-28 16:55] LABS: BASOPHILS % 0.4 % (0.0-2.0); EOSINOPHILS % 1.4 % (0.0-5.0); HEMATOCRIT. 43.8 % (42.0-52.0); HEMOGLOBIN. 14.8 g/dL (14.0-18.0); LYMPHOCYTES % 17.3 % (20.0-50.0); MEAN CORPUSCULAR HEMOGLOBIN 30.2 pg (28.0-32.0); MEAN CORPUSCULAR VOLUME 89.4 fL (80.0-94.0); MONOCYTES % 9.9 % (2.0-8.0); PLATELET 144 x1000/uL (130-400); RED CELL DISTRIBUTION WIDTH 15.7 % (11.6-14.6)
[2022-03-28 17:03] LABS: CHLORIDE 105 mEq/L (98-107)
[2022-03-28 17:08] LABS: INR 1.1; PARTIAL THROMBOPLASTIN TIME 31.4 sec (23.4-31.0); PROTHROMBIN TIME 11.4 sec (9.6-11.0)
[2022-03-28 17:14] LABS: ETHANOL BLOOD < 10 mg/dL
[2022-03-28] MEDS ORDERED: N325 SL (17:45)
[2022-03-28 18:15] VITALS: BP 122/74
== END 2022-03-28 18:20 | disposition home or self-care (01) ==
LOC: ER 13:59
DX: R07.89 Other chest pain (principal); R00.0 Tachycardia, unspecified; I10 Essential (primary) hypertension; Z86.711 Personal history of pulmonary embolism; Z79.01 Long term (current) use of anticoagulants
CPT/HCPCS: 36415; 71045; 80053; 80320; 83690; 83880; 84484; 85025; 85610; 85730; 93005; 96361; 96374; 99285; J2270; J7040; G0480

== ENCOUNTER 2022-05-29 00:22 | Emergency (ER) | payer MEDICARE, MEDICAID ==
[~2022-05-29] VITALS: Ht 172.7 cm; Wt 88.4 kg
[~2022-05-29 00:22] MED LIST changes: +N325 SL
[2022-05-29 00:37] VITALS: BP 137/82
== END 2022-05-29 02:50 | disposition left against medical advice (07) ==
LOC: ER 00:22
DX: R07.89 Other chest pain (principal); M79.602 Pain in left arm; E11.9 Type 2 diabetes mellitus without complications; Z95.0 Presence of cardiac pacemaker
CPT/HCPCS: 93005; 99281

== ENCOUNTER 2022-09-20 04:12 | Emergency (ER) | payer MEDICARE, MEDICAID ==
[~2022-09-20] VITALS: Ht 172.7 cm; Wt 88.0 kg
[~2022-09-20 04:12] MED LIST changes: -ACET-2708 MT; -ATOR10TA MT; +ATOR40TA70 PO; -BACL-141 MT; -DORZ10DR12 EACHEYE; +DORZ10DR32 EACHEYE; -FERR-71 MT; -FINA5TAB3 PO; -IBUP-2029 MT; +METO25TA6 PO; +OMEP20CA14 MT
[2022-09-20 04:18] VITALS: O2SAT 100
[2022-09-20 05:00] LABS: BASOPHILS % 0.4 % (0.0-2.0); EOSINOPHILS % 3.3 % (0.0-5.0); HEMATOCRIT. 39.5 % (42.0-52.0); HEMOGLOBIN. 13.2 g/dL (14.0-18.0); LYMPHOCYTES % 22.3 % (20.0-50.0); MEAN CORPUSCULAR HEMOGLOBIN 28.8 pg (28.0-32.0); MEAN CORPUSCULAR VOLUME 86.4 fL (80.0-94.0); MONOCYTES % 11.7 % (2.0-8.0); NEUTROPHILS % 62.3 % (40.0-76.0); PLATELET 196 x1000/uL (130-400); RED BLOOD CELL COUNT 4.57 mill/uL (4.7-6.1); RED CELL DISTRIBUTION WIDTH 15.6 % (11.6-14.6)
[2022-09-20 05:07] LABS: CHLORIDE 107 mEq/L (98-107)
[2022-09-20 10:00] VITALS: BP 133/87; PULSE 60; RESP 14; TEMP 97.8
== END 2022-09-20 11:12 | disposition home or self-care (01) ==
LOC: ER 04:12
DX: R07.89 Other chest pain (principal); I48.92 Unspecified atrial flutter; I48.91 Unspecified atrial fibrillation; E11.9 Type 2 diabetes mellitus without complications; E78.00 Pure hypercholesterolemia, unspecified; H40.9 Unspecified glaucoma
CPT/HCPCS: 36415; 71045; 80053; 84484; 85025; 93005; 99285

== ENCOUNTER 2022-10-26 16:19 | Emergency (ER) | payer MEDICARE, MEDICAID ==
[~2022-10-26] VITALS: Ht 175.3 cm; Wt 79.0 kg
[2022-10-26 16:31] VITALS: BP 103/72; PULSE 77; RESP 20; TEMP 98; O2SAT 98
[2022-10-26 17:05] LABS: BASOPHILS % 0.4 % (0.0-2.0); EOSINOPHILS % 2.4 % (0.0-5.0); HEMATOCRIT. 43.2 % (42.0-52.0); HEMOGLOBIN. 13.7 g/dL (14.0-18.0); LYMPHOCYTES % 21.6 % (20.0-50.0); MEAN CORPUSCULAR HGB CONC 31.8 g/dL (31.0-37.0); MEAN CORPUSCULAR VOLUME 87.9 fL (80.0-94.0); MEAN PLATELET VOLUME 10.9 fl (7.4-10.4); MONOCYTES % 10.4 % (2.0-8.0); NEUTROPHILS % 65.2 % (40.0-76.0); PLATELET 206 x1000/uL (130-400); RED BLOOD CELL COUNT 4.91 mill/uL (4.7-6.1); RED CELL DISTRIBUTION WIDTH 15.9 % (11.6-14.6); WHITE BLOOD COUNT 7.7 x1000/uL (4.5-11.0)
[2022-10-26 17:13] LABS: CHLORIDE 109 mEq/L (98-107); INDEX HEMOLYSI 1 (1-3); INDEX ICTERIC 1 (1-4); INDEX LIPEMIC 1 (1-3); POTASSIUM 4.1 mEq/L (3.5-5.1); SODIUM 134 mEq/L (136-145)
[2022-10-26 17:25] LABS: ALANINE AMINOTRANSFERASE 23 IU/L (13-61); ALBUMIN 3.8 g/dL (3.4-5.0); ASPARTATE AMINOTRANSFERASE 16 IU/L (15-37); BILIRUBIN TOTAL 0.4 mg/dL (0.1-1.0); CALCIUM 8.8 mg/dL (8.5-10.1); CARBON DIOXIDE 21 mEq/L (21-32); CREATININE 1.1 mg/dL (0.6-1.3); GLUCOSE 194 mg/dL (70-105); NT PRO B-TYPE NATRIURETIC PEP 60 pg/mL (5-125); PROTEIN TOTAL 7.8 g/dL (6.0-8.3); TROPONIN I HIGH SENSITIVITY 6 ng/L (<78); UREA NITROGEN BLOOD 17 mg/dL (7-21)
[2022-10-26 17:35] LABS: CLARITY URINE CLEAR (CLEAR); COLOR URINE YELLOW (YELLOW); GLUCOSE URINE NEGATIVE (NEGATIVE); KETONES URINE NEGATIVE (NEGATIVE); LEUKOCYTE ESTERASE URINE NEGATIVE (NEGATIVE); NITRITE URINE NEGATIVE (NEGATIVE); OCCULT BLOOD URINE NEGATIVE (NEGATIVE); PROTEIN URINE NEGATIVE (NEGATIVE); SPECIFIC GRAVITY URINE 1.027 (1.005-1.030)
== END 2022-10-26 18:55 | disposition left against medical advice (07) ==
LOC: ER 16:19
DX: Z53.21 Procedure and treatment not carried out due to patient leaving prior to being seen by health care provider (principal)
CPT/HCPCS: 36415; 71045; 80053; 81003; 83880; 84484; 85025; 93005; 99281

== ENCOUNTER 2022-10-28 17:13 | Emergency (ER) | payer MEDICARE, MEDICAID ==
[~2022-10-28] VITALS: Ht 172.7 cm; Wt 88.6 kg
[2022-10-28 17:20] VITALS: BP 134/83; PULSE 79; RESP 16; TEMP 98.5; O2SAT 98
[2022-10-28 18:00] LABS: BASOPHILS % 0.4 % (0.0-2.0); DIFFERENTIAL COMMENT 0; EOSINOPHILS % 2.2 % (0.0-5.0); HEMATOCRIT. 41.2 % (42.0-52.0); HEMOGLOBIN. 13.8 g/dL (14.0-18.0); LYMPHOCYTES % 22.1 % (20.0-50.0); MEAN CORPUSCULAR HEMOGLOBIN 28.8 pg (28.0-32.0); MEAN CORPUSCULAR HGB CONC 33.5 g/dL (31.0-37.0); MONOCYTES % 10.7 % (2.0-8.0); NEUTROPHILS % 64.6 % (40.0-76.0); PLATELET 199 x1000/uL (130-400); RED BLOOD CELL COUNT 4.79 mill/uL (4.7-6.1); RED CELL DISTRIBUTION WIDTH 16.1 % (11.6-14.6); WHITE BLOOD COUNT 7.2 x1000/uL (4.5-11.0)
[2022-10-28 18:04] LABS: CHLORIDE 111 mEq/L (98-107); INDEX HEMOLYSI 1 (1-3); INDEX ICTERIC 1 (1-4); INDEX LIPEMIC 1 (1-3); POTASSIUM 4.3 mEq/L (3.5-5.1); SODIUM 136 mEq/L (136-145)
[2022-10-28 18:15] LABS: ALANINE AMINOTRANSFERASE 22 IU/L (13-61); ALBUMIN 3.9 g/dL (3.4-5.0); ASPARTATE AMINOTRANSFERASE 17 IU/L (15-37); BILIRUBIN TOTAL 0.7 mg/dL (0.1-1.0); CALCIUM 9.2 mg/dL (8.5-10.1); CARBON DIOXIDE 25 mEq/L (21-32); CREATININE 1.1 mg/dL (0.6-1.3); GLUCOSE 132 mg/dL (70-105); PROTEIN TOTAL 7.8 g/dL (6.0-8.3); TROPONIN I HIGH SENSITIVITY 5 ng/L (<78); UREA NITROGEN BLOOD 15 mg/dL (7-21)
[2022-10-28] MEDS ORDERED: ASPIRIN 81MG TABLET PO ONE (21:45)
[2022-10-29 01:18] LABS: TROPONIN I HIGH SENSITIVITY 7 ng/L (<78)
[2022-10-29] MEDS ORDERED: ASPIRIN 81MG TABLET PO NR (01:30)
== END 2022-10-29 01:31 | disposition home or self-care (01) ==
LOC: ER 17:13
DX: R07.89 Other chest pain (principal); R06.02 Shortness of breath; I48.91 Unspecified atrial fibrillation; E11.9 Type 2 diabetes mellitus without complications; E78.00 Pure hypercholesterolemia, unspecified; Z95.0 Presence of cardiac pacemaker; Z79.899 Other long term (current) drug therapy
CPT/HCPCS: 36415; 71045; 80053; 84484; 85025; 85379; 93005; 99285

== ENCOUNTER 2022-11-28 03:28 | Emergency (ER) | payer MEDICARE, MEDICAID ==
[~2022-11-28] VITALS: Ht 172.7 cm; Wt 88.0 kg
[~2022-11-28 03:28] MED LIST changes: +TRAV2.5D EACHEYE; -TRAV2.5D9 EACHEYE
[2022-11-28 03:35] VITALS: BP 116/75; PULSE 67; RESP 18; TEMP 98.6; O2SAT 99
[2022-11-28 04:47] LABS: BASOPHILS % 0.6 % (0.0-2.0); HEMATOCRIT. 40.2 % (42.0-52.0); HEMOGLOBIN. 12.9 g/dL (14.0-18.0); LYMPHOCYTES % 17.5 % (20.0-50.0); MEAN CORPUSCULAR HEMOGLOBIN 27.6 pg (28.0-32.0); MEAN CORPUSCULAR HGB CONC 32.1 g/dL (31.0-37.0); MEAN CORPUSCULAR VOLUME 85.9 fL (80.0-94.0); MEAN PLATELET VOLUME 10.6 fl (7.4-10.4); MONOCYTES % 9.6 % (2.0-8.0); NEUTROPHILS % 69.3 % (40.0-76.0); PLATELET 176 x1000/uL (130-400); RED BLOOD CELL COUNT 4.68 mill/uL (4.7-6.1); RED CELL DISTRIBUTION WIDTH 16.9 % (11.6-14.6); WHITE BLOOD COUNT 7.4 x1000/uL (4.5-11.0)
[2022-11-28 05:00] LABS: CHLORIDE 109 mEq/L (98-107); INDEX HEMOLYSI 1 (1-3); INDEX ICTERIC 1 (1-4); INDEX LIPEMIC 1 (1-3); POTASSIUM 4.1 mEq/L (3.5-5.1); SODIUM 140 mEq/L (136-145)
[2022-11-28 05:01] LABS: INR 1.1; PARTIAL THROMBOPLASTIN TIME 32.3 sec (23.4-31.0); PROTHROMBIN TIME 11.3 sec (9.6-11.0)
[2022-11-28 05:13] LABS: ALANINE AMINOTRANSFERASE 19 IU/L (13-61); ALBUMIN 3.6 g/dL (3.4-5.0); ASPARTATE AMINOTRANSFERASE 12 IU/L (15-37); BILIRUBIN TOTAL 0.6 mg/dL (0.1-1.0); CALCIUM 8.9 mg/dL (8.5-10.1); CARBON DIOXIDE 28 mEq/L (21-32); CREATININE 1.1 mg/dL (0.6-1.3); GLUCOSE 137 mg/dL (70-105); NT PRO B-TYPE NATRIURETIC PEP 23 pg/mL (5-125); PROTEIN TOTAL 7.4 g/dL (6.0-8.3); TROPONIN I HIGH SENSITIVITY 9 ng/L (<78); UREA NITROGEN BLOOD 19 mg/dL (7-21)
== END 2022-11-28 11:00 | disposition left against medical advice (07) ==
LOC: ER 03:28
DX: R07.89 Other chest pain (principal); E78.00 Pure hypercholesterolemia, unspecified; E11.9 Type 2 diabetes mellitus without complications; Z91.041 Radiographic dye allergy status; Z79.899 Other long term (current) drug therapy
CPT/HCPCS: 36415; 71045; 80053; 83880; 84484; 85025; 93005; 99285

== ENCOUNTER 2023-02-03 03:54 | Emergency (ER) | payer MEDICAID, MEDICARE ==
[~2023-02-03] VITALS: Ht 172.7 cm; Wt 89.0 kg
[2023-02-03 04:09] VITALS: TEMP 97.6; O2SAT 99
[2023-02-03 05:07] LABS: BASOPHILS % 0.3 % (0.0-2.0); EOSINOPHILS % 1.2 % (0.0-5.0); HEMATOCRIT. 42.8 % (42.0-52.0); HEMOGLOBIN. 13.5 g/dL (14.0-18.0); LYMPHOCYTES % 10.9 % (20.0-50.0); MEAN CORPUSCULAR HEMOGLOBIN 29.1 pg (28.0-32.0); MEAN CORPUSCULAR HGB CONC 31.5 g/dL (31.0-37.0); MEAN CORPUSCULAR VOLUME 92.6 fL (80.0-94.0); MEAN PLATELET VOLUME 10.1 fl (7.4-10.4); MONOCYTES % 6.3 % (2.0-8.0); NEUTROPHILS % 81.3 % (40.0-76.0); PLATELET 192 x1000/uL (130-400); RED BLOOD CELL COUNT 4.62 mill/uL (4.7-6.1); RED CELL DISTRIBUTION WIDTH 17.6 % (11.6-14.6); WHITE BLOOD COUNT 9.1 x1000/uL (4.5-11.0)
[2023-02-03 05:18] LABS: INR 1.1; PROTHROMBIN TIME 11.3 sec (9.6-11.0)
[2023-02-03] MEDS ORDERED: KETOROLAC 30MG/ML VIAL IV STA (05:27)
[2023-02-03 05:42] VITALS: BP 122/68; PULSE 108; RESP 16
[2023-02-03 09:02] LABS: ALANINE AMINOTRANSFERASE 10 IU/L (10-49); ALBUMIN 4.5 g/dL (3.2-4.8); ASPARTATE AMINOTRANSFERASE 17 IU/L (<34); BILIRUBIN TOTAL 0.7 mg/dL (0.1-1.0); CARBON DIOXIDE 19 mEq/L (21-32); CHLORIDE 108 mEq/L (98-107); CREATININE 1.3 mg/dL (0.6-1.3); GLUCOSE 186 mg/dL (70-105); POTASSIUM 4.2 mEq/L (3.5-5.1); PROTEIN TOTAL 7.2 g/dL (6.0-8.3); SODIUM 139 mEq/L (136-145); UREA NITROGEN BLOOD 8 mg/dL (9-23)
[2023-02-03 09:13] LABS: TROPONIN I HIGH SENSITIVITY < 4 ng/L (3.0-53)
== END 2023-02-03 12:15 | disposition left against medical advice (07) ==
LOC: ER 03:54 → EDBEDREQTM 10:12 → EDBEDREQ 10:12 → ER 12:15 → CANBEDREQ 19:57
DX: B34.9 Viral infection, unspecified (principal); E78.00 Pure hypercholesterolemia, unspecified; E11.9 Type 2 diabetes mellitus without complications; Z20.822 Contact with and (suspected) exposure to COVID-19; Z91.041 Radiographic dye allergy status; Z79.899 Other long term (current) drug therapy; Z79.82 Long term (current) use of aspirin
CPT/HCPCS: 99285; 96374; 71045; 87426; 80053; 83880; 85025; 85610; 84484; 36415; 93005; J1885; C9803

== ENCOUNTER 2023-02-15 09:58 | Emergency (ER) | payer MEDICARE ==
[~2023-02-15] VITALS: Ht 172.7 cm; Wt 88.5 kg
[2023-02-15 10:06] VITALS: O2SAT 100
[2023-02-15 10:42] LABS: BASOPHILS % 0.6 % (0.0-2.0); DIFFERENTIAL COMMENT 0; EOSINOPHILS % 2.3 % (0.0-5.0); HEMATOCRIT. 40.8 % (42.0-52.0); HEMOGLOBIN. 12.9 g/dL (14.0-18.0); LYMPHOCYTES % 18.5 % (20.0-50.0); MEAN CORPUSCULAR HEMOGLOBIN 28.3 pg (28.0-32.0); MEAN CORPUSCULAR HGB CONC 31.7 g/dL (31.0-37.0); MEAN CORPUSCULAR VOLUME 89.5 fL (80.0-94.0); MONOCYTES % 9.9 % (2.0-8.0); NEUTROPHILS % 68.7 % (40.0-76.0); PLATELET 196 x1000/uL (130-400); RED BLOOD CELL COUNT 4.56 mill/uL (4.7-6.1); RED CELL DISTRIBUTION WIDTH 17.4 % (11.6-14.6); WHITE BLOOD COUNT 7.9 x1000/uL (4.5-11.0)
[2023-02-15] MEDS ORDERED: KETOROLAC 30MG/ML VIAL IV ONE (13:45)
[2023-02-15] MEDS ORDERED: ASPIRIN 81MG TABLET PO ONE (13:45)
[2023-02-15] MEDS ORDERED: NITROGLYCERIN 0.4MG TABLET SL SL ONE ×2 (13:45→15:20)
[2023-02-15 14:30] VITALS: BP 112/64; PULSE 60; RESP 12; TEMP 98.4
[2023-02-15 14:59] LABS: ALANINE AMINOTRANSFERASE 7 IU/L (10-49); ALBUMIN 4.1 g/dL (3.2-4.8); ASPARTATE AMINOTRANSFERASE 13 IU/L (<34); BILIRUBIN TOTAL 0.5 mg/dL (0.1-1.0); CALCIUM 8.4 mg/dL (8.7-10.4); CARBON DIOXIDE 16 mEq/L (21-32); CHLORIDE 112 mEq/L (98-107); CREATININE 0.9 mg/dL (0.6-1.3); GLUCOSE 142 mg/dL (70-105); POTASSIUM 3.5 mEq/L (3.5-5.1); PROTEIN TOTAL 6.9 g/dL (6.0-8.3); SODIUM 140 mEq/L (136-145); TROPONIN I HIGH SENSITIVITY 5 ng/L (3.0-53); UREA NITROGEN BLOOD 11 mg/dL (9-23)
== END 2023-02-15 16:00 | disposition home or self-care (01) ==
LOC: ER 10:06
DX: R07.89 Other chest pain (principal); R06.02 Shortness of breath; I48.91 Unspecified atrial fibrillation; E11.9 Type 2 diabetes mellitus without complications; E78.00 Pure hypercholesterolemia, unspecified; H40.9 Unspecified glaucoma; Z79.899 Other long term (current) drug therapy
CPT/HCPCS: 99285; 96374; 71045; 80053; 83880; 85025; 84484; 36415; 93005; J1885

== ENCOUNTER 2023-02-23 22:28 | Emergency (ER) | payer MEDICARE, MEDICAID ==
[~2023-02-23] VITALS: Ht 172.7 cm; Wt 86.0 kg
[2023-02-23 22:32] VITALS: BP 147/89; PULSE 73; RESP 16; TEMP 98.5; O2SAT 98
== END 2023-02-24 05:28 | disposition left against medical advice (07) ==
LOC: ER 22:28
DX: Z53.21 Procedure and treatment not carried out due to patient leaving prior to being seen by health care provider (principal)
CPT/HCPCS: 71045; 93005; 99281

== ENCOUNTER 2023-06-02 23:05 | Emergency (ER) | payer MEDICARE, MEDICAID ==
[~2023-06-02] VITALS: Ht 172.7 cm; Wt 88.0 kg
[~2023-06-02 23:05] MED LIST changes: -ASPI-1406 PO; -DORZ10DR12 BOTHEYE; -OMEP20CA14 MT; -VITA50005 MT; -ZINC50TA62 PO
[2023-06-02 23:24] VITALS: TEMP 98; O2SAT 99
[2023-06-02 23:48] LABS: BASOPHILS % 0.5 % (0.0-2.0); EOSINOPHILS % 1.7 % (0.0-5.0); HEMATOCRIT. 40.1 % (42.0-52.0); HEMOGLOBIN. 13.1 g/dL (14.0-18.0); LYMPHOCYTES % 19.2 % (20.0-50.0); MEAN CORPUSCULAR HEMOGLOBIN 29.5 pg (28.0-32.0); MEAN CORPUSCULAR HGB CONC 32.6 g/dL (31.0-37.0); MEAN CORPUSCULAR VOLUME 90.6 fL (80.0-94.0); MEAN PLATELET VOLUME 9.7 fl (7.4-10.4); MONOCYTES % 10.9 % (2.0-8.0); NEUTROPHILS % 67.7 % (40.0-76.0); PLATELET 194 x1000/uL (130-400); RED BLOOD CELL COUNT 4.43 mill/uL (4.7-6.1); RED CELL DISTRIBUTION WIDTH 15.8 % (11.6-14.6); WHITE BLOOD COUNT 9.7 x1000/uL (4.5-11.0)
[2023-06-03 00:13] LABS: ALANINE AMINOTRANSFERASE 14 IU/L (10-49); ALBUMIN 4.6 g/dL (3.2-4.8); ASPARTATE AMINOTRANSFERASE 22 IU/L (<34); BILIRUBIN TOTAL 0.6 mg/dL (0.1-1.0); CALCIUM 9.2 mg/dL (8.7-10.4); CARBON DIOXIDE 27 mEq/L (21-32); CHLORIDE 107 mEq/L (98-107); CREATININE 1.3 mg/dL (0.6-1.3); GLUCOSE 170 mg/dL (70-105); POTASSIUM 3.7 mEq/L (3.5-5.1); PROTEIN TOTAL 7.5 g/dL (6.0-8.3); SODIUM 141 mEq/L (136-145); TROPONIN I HIGH SENSITIVITY 6 ng/L (3.0-53); UREA NITROGEN BLOOD 14 mg/dL (9-23)
[2023-06-03] MEDS: ACETAMINOPHEN 325MG TABLET PO STA (03:20)
[2023-06-03 03:24] LABS: TROPONIN I HIGH SENSITIVITY 8 ng/L (3.0-53)
[2023-06-03 04:15] VITALS: BP 145/2; PULSE 61; RESP 13
== END 2023-06-03 04:40 | disposition home or self-care (01) ==
LOC: ER 23:05
DX: R07.89 Other chest pain (principal); R73.9 Hyperglycemia, unspecified; Z79.899 Other long term (current) drug therapy; Z98.890 Other specified postprocedural states
CPT/HCPCS: 36415; 71046; 80053; 84484; 85025; 93970; 99284

== ENCOUNTER 2023-06-20 09:03 | Emergency (ER) | payer MEDICARE, MEDICAID ==
[~2023-06-20] VITALS: Ht 172.7 cm; Wt 84.0 kg
[2023-06-20 09:13] VITALS: BP 113/62; PULSE 75; RESP 16; TEMP 98.8; O2SAT 99
[2023-06-20 09:35] LABS: BASOPHILS % 0.6 % (0.0-2.0); EOSINOPHILS % 2.6 % (0.0-5.0); HEMOGLOBIN. 12.5 g/dL (14.0-18.0); LYMPHOCYTES % 17.2 % (20.0-50.0); MEAN CORPUSCULAR HEMOGLOBIN 29.4 pg (28.0-32.0); MEAN CORPUSCULAR HGB CONC 32.1 g/dL (31.0-37.0); MEAN CORPUSCULAR VOLUME 91.5 fL (80.0-94.0); MONOCYTES % 8.1 % (2.0-8.0); NEUTROPHILS % 71.5 % (40.0-76.0); PLATELET 185 x1000/uL (130-400); RED BLOOD CELL COUNT 4.27 mill/uL (4.7-6.1); RED CELL DISTRIBUTION WIDTH 15.7 % (11.6-14.6); WHITE BLOOD COUNT 6.7 x1000/uL (4.5-11.0)
[2023-06-20 09:56] LABS: ALANINE AMINOTRANSFERASE 14 IU/L (10-49); ALBUMIN 3.9 g/dL (3.2-4.8); ASPARTATE AMINOTRANSFERASE 15 IU/L (<34); BILIRUBIN TOTAL 0.6 mg/dL (0.1-1.0); CALCIUM 8.4 mg/dL (8.7-10.4); CARBON DIOXIDE 21 mEq/L (21-32); CHLORIDE 110 mEq/L (98-107); CREATININE 1.1 mg/dL (0.6-1.3); GLUCOSE 181 mg/dL (70-105); POTASSIUM 3.8 mEq/L (3.5-5.1); PROTEIN TOTAL 6.2 g/dL (6.0-8.3); SODIUM 137 mEq/L (136-145); TROPONIN I HIGH SENSITIVITY 6 ng/L (3.0-53); UREA NITROGEN BLOOD 8 mg/dL (9-23)
== END 2023-06-20 12:11 | disposition home or self-care (01) ==
LOC: ER 09:03
DX: R07.89 Other chest pain (principal); Z91.041 Radiographic dye allergy status; Z79.899 Other long term (current) drug therapy; Z79.82 Long term (current) use of aspirin
CPT/HCPCS: 36415; 71045; 80053; 84484; 85025; 93005; 99285

== ENCOUNTER → 2023-07-01 | Day surgery (SDC) | payer MEDICARE, MEDICAID ==
[~2023-07-01] VITALS: Ht 30.5 cm; Wt 0.5 kg
[~2023-07-01] MED LIST changes: +ACETAMINOPHEN 325MG TABLET PO PRN; +BALANCED SALT IRRIG SOLN 15ML ONE; +LIDOCAINE HCL 1% 10 MG/ML 10ML VIAL ONE; +ONDANSETRON HCL 4MG/2ML INJ IV PRN; +SODIUM CHLORIDE 0.9% 1,000 ML IV SCH; +TRIAMCINOLONE ACETONIDE 40MG/ML 1ML VIAL ONE
== END | disposition home or self-care (01) ==
LOC: OR 06:44
PROVIDERS: ATTEND Ophthalmology
DX: Z45.2 Encounter for adjustment and management of vascular access device (principal); E11.39 Type 2 diabetes mellitus with other diabetic ophthalmic complication; H42 Glaucoma in diseases classified elsewhere; E78.5 Hyperlipidemia, unspecified; I25.10 Atherosclerotic heart disease of native coronary artery without angina pectoris; Z79.84 Long term (current) use of oral hypoglycemic drugs; Z79.899 Other long term (current) drug therapy; Z98.890 Other specified postprocedural states; Z82.49 Family history of ischemic heart disease and other diseases of the circulatory system; Z91.041 Radiographic dye allergy status; Z91.013 Allergy to seafood; Z88.8 Allergy status to other drugs, medicaments and biological substances; Z79.82 Long term (current) use of aspirin
CPT/HCPCS: 66180; 82962; 36573; 71045; 93005; J3490 ×3; J3301; C1893; C1725; C1783

== ENCOUNTER 2023-07-26 09:30 | Emergency (ER) | payer MEDICARE, MEDICAID ==
[~2023-07-26] VITALS: Ht 172.7 cm; Wt 80.0 kg
[~2023-07-26 09:30] MED LIST changes: -ACETAMINOPHEN 325MG TABLET PO PRN; -BALANCED SALT IRRIG SOLN 15ML ONE; -LIDOCAINE HCL 1% 10 MG/ML 10ML VIAL ONE; -ONDANSETRON HCL 4MG/2ML INJ IV PRN; -SODIUM CHLORIDE 0.9% 1,000 ML IV SCH; -TRIAMCINOLONE ACETONIDE 40MG/ML 1ML VIAL ONE
[2023-07-26 09:35] VITALS: O2SAT 98
[2023-07-26] MEDS: NITROGLYCERIN 0.4MG TABLET SL SL PRN (10:59)
[2023-07-26 12:01] LABS: BASOPHILS % 0.6 % (0.0-2.0); EOSINOPHILS % 0.4 % (0.0-5.0); HEMATOCRIT. 39.4 % (42.0-52.0); LYMPHOCYTES % 13.6 % (20.0-50.0); MEAN CORPUSCULAR HEMOGLOBIN 29.9 pg (28.0-32.0); MEAN CORPUSCULAR VOLUME 90.5 fL (80.0-94.0); MEAN PLATELET VOLUME 10.3 fl (7.4-10.4); MONOCYTES % 6.4 % (2.0-8.0); PLATELET 173 x1000/uL (130-400); RED BLOOD CELL COUNT 4.36 mill/uL (4.7-6.1); RED CELL DISTRIBUTION WIDTH 14.9 % (11.6-14.6); WHITE BLOOD COUNT 10.7 x1000/uL (4.5-11.0)
[2023-07-26 12:06] LABS: CHLORIDE 108 mEq/L (98-107); POTASSIUM 3.8 mEq/L (3.5-5.1); SODIUM 140 mEq/L (136-145)
[2023-07-26 12:07] LABS: CALCIUM 9.7 mg/dL (8.7-10.4); CARBON DIOXIDE 26 mEq/L (21-32)
[2023-07-26 12:12] LABS: CREATININE 1.1 mg/dL (0.6-1.3); GLUCOSE 145 mg/dL (70-105); PARTIAL THROMBOPLASTIN TIME 26.5 sec (23.4-31.0); PROTHROMBIN TIME 11.2 sec (9.6-11.0); UREA NITROGEN BLOOD 10 mg/dL (9-23)
[2023-07-26 12:13] LABS: TROPONIN I HIGH SENSITIVITY 6 ng/L (3.0-53)
[2023-07-26 15:01] VITALS: BP 138/84; PULSE 80; RESP 18; TEMP 98.6
== END 2023-07-26 15:03 | disposition home or self-care (01) ==
LOC: ER 09:30
DX: M25.422 Effusion, left elbow (principal); R07.89 Other chest pain; E11.9 Type 2 diabetes mellitus without complications; E78.00 Pure hypercholesterolemia, unspecified; Z91.041 Radiographic dye allergy status; Z91.013 Allergy to seafood; Z79.899 Other long term (current) drug therapy; Z98.890 Other specified postprocedural states
CPT/HCPCS: 36415; 71045; 72170; 73030; 73060; 73070; 73560; 73590; 80048; 83880; 84484; 85025; 93005; 99285; A4565

== ENCOUNTER 2023-07-29 18:51 | Emergency (ER) | payer MEDICARE, MEDICAID ==
[~2023-07-29] VITALS: Ht 172.7 cm; Wt 86.0 kg
[2023-07-29 19:21] VITALS: TEMP 98.2; O2SAT 99
[2023-07-29 20:10] LABS: CLARITY URINE CLEAR (CLEAR); COLOR URINE YELLOW (YELLOW); GLUCOSE URINE NEGATIVE (NEGATIVE); KETONES URINE NEGATIVE (NEGATIVE); LEUKOCYTE ESTERASE URINE NEGATIVE (NEGATIVE); NITRITE URINE NEGATIVE (NEGATIVE); OCCULT BLOOD URINE NEGATIVE (NEGATIVE); PH URINE 6.5 (4.5-8.0); PROTEIN URINE NEGATIVE (NEGATIVE); SPECIFIC GRAVITY URINE 1.014 (1.005-1.030)
[2023-07-29 20:39] LABS: BASOPHILS % 0.4 % (0.0-2.0); EOSINOPHILS % 1.6 % (0.0-5.0); HEMATOCRIT. 39.1 % (42.0-52.0); HEMOGLOBIN. 12.8 g/dL (14.0-18.0); MEAN CORPUSCULAR HEMOGLOBIN 29.9 pg (28.0-32.0); MEAN CORPUSCULAR HGB CONC 32.7 g/dL (31.0-37.0); MEAN CORPUSCULAR VOLUME 91.6 fL (80.0-94.0); MEAN PLATELET VOLUME 9.9 fl (7.4-10.4); MONOCYTES % 7.4 % (2.0-8.0); NEUTROPHILS % 74.6 % (40.0-76.0); PLATELET 171 x1000/uL (130-400); RED BLOOD CELL COUNT 4.27 mill/uL (4.7-6.1); RED CELL DISTRIBUTION WIDTH 14.6 % (11.6-14.6); WHITE BLOOD COUNT 7.8 x1000/uL (4.5-11.0)
[2023-07-29 20:45] LABS: CHLORIDE 106 mEq/L (98-107); POTASSIUM 3.8 mEq/L (3.5-5.1); SODIUM 139 mEq/L (136-145)
[2023-07-29 20:46] LABS: CALCIUM 9.3 mg/dL (8.7-10.4); CARBON DIOXIDE 25 mEq/L (21-32)
[2023-07-29 20:51] LABS: CREATININE 1.2 mg/dL (0.6-1.3); GLUCOSE 90 mg/dL (70-105); UREA NITROGEN BLOOD 10 mg/dL (9-23)
[2023-07-29 20:56] LABS: TROPONIN I HIGH SENSITIVITY < 4 ng/L (3.0-53)
[2023-07-29 23:36] LABS: TROPONIN I HIGH SENSITIVITY 4 ng/L (3.0-53)
[2023-07-30 00:03] VITALS: BP 171/87; PULSE 70; RESP 16
== END 2023-07-30 00:11 | disposition home or self-care (01) ==
LOC: ER 18:51
DX: R07.89 Other chest pain (principal); E11.9 Type 2 diabetes mellitus without complications; E78.00 Pure hypercholesterolemia, unspecified; Z98.890 Other specified postprocedural states; Z91.040 Latex allergy status; Z91.013 Allergy to seafood
CPT/HCPCS: 36415; 71045; 80048; 81003; 84484; 85025; 93005; 99285

== ENCOUNTER 2023-07-30 00:26 | Emergency (ER) | payer MEDICARE, MEDICAID ==
[~2023-07-30] VITALS: Ht 172.7 cm; Wt 86.0 kg
[2023-07-30 00:54] VITALS: BP 146/82; PULSE 67; RESP 16; TEMP 98.1; O2SAT 98
== END 2023-07-30 05:56 | disposition left against medical advice (07) ==
LOC: ER 00:26
DX: R07.89 Other chest pain (principal); Z53.21 Procedure and treatment not carried out due to patient leaving prior to being seen by health care provider
CPT/HCPCS: 93005

== ENCOUNTER 2023-12-03 00:57 | Emergency (ER) | payer MEDICARE, MEDICAID ==
[~2023-12-03] VITALS: Ht 170.2 cm; Wt 84.0 kg
[2023-12-03 01:22] VITALS: O2SAT 100
[2023-12-03 02:55] LABS: CHLORIDE 109 mEq/L (98-107); POTASSIUM 3.7 mEq/L (3.5-5.1); SODIUM 140 mEq/L (136-145)
[2023-12-03 02:56] LABS: CALCIUM 10.1 mg/dL (8.7-10.4); CARBON DIOXIDE 24 mEq/L (21-32)
[2023-12-03 02:57] LABS: HEMATOCRIT. 41.7 % (42.0-52.0); HEMOGLOBIN. 13.4 g/dL (14.0-18.0); MEAN CORPUSCULAR HEMOGLOBIN 28.1 pg (28.0-32.0); MEAN CORPUSCULAR HGB CONC 32.2 g/dL (31.0-37.0); MEAN CORPUSCULAR VOLUME 87.4 fL (80.0-94.0); MEAN PLATELET VOLUME 10.1 fl (7.4-10.4); PLATELET 187 x1000/uL (130-400); RED BLOOD CELL COUNT 4.77 mill/uL (4.7-6.1); RED CELL DISTRIBUTION WIDTH 15.6 % (11.6-14.6); WHITE BLOOD COUNT 5.3 x1000/uL (4.5-11.0)
[2023-12-03 03:01] LABS: CREATININE 1.3 mg/dL (0.6-1.3); DIFFERENTIAL COMMENT 1; GLUCOSE 200 mg/dL (70-105); UREA NITROGEN BLOOD 17 mg/dL (9-23)
[2023-12-03 03:02] LABS: TROPONIN I HIGH SENSITIVITY 6 ng/L (3.0-53)
[2023-12-03] MEDS: ASPIRIN 325MG EC TABLET PO NR (04:00)
[2023-12-03 04:06] LABS: PLATELET ESTIMATE NORMAL
[2023-12-03 05:14] LABS: TROPONIN I HIGH SENSITIVITY 6 ng/L (3.0-53)
[2023-12-03] MEDS ORDERED: ASPI-1497 MT (05:36)
[2023-12-03] MEDS ORDERED: NITR0.4T SL (05:36)
[2023-12-03] MEDS: ACETAMINOPHEN 325MG TABLET PO ONE (05:50)
[2023-12-03 05:52] VITALS: BP 134/69; PULSE 68; RESP 14; TEMP 36.44736; O2SAT 98
== END 2023-12-03 05:52 | disposition home or self-care (01) ==
LOC: ER 00:57
DX: I20.9 Angina pectoris, unspecified (principal); E11.9 Type 2 diabetes mellitus without complications; E78.00 Pure hypercholesterolemia, unspecified; Z00.00 Encounter for general adult medical examination without abnormal findings; Z88.8 Allergy status to other drugs, medicaments and biological substances; Z91.013 Allergy to seafood; Z79.899 Other long term (current) drug therapy; Z98.890 Other specified postprocedural states
CPT/HCPCS: 36415; 71045; 80048; 84484; 85025; 93005; 99285

== ENCOUNTER 2023-12-05 21:38 | Emergency (ER) | payer MEDICARE, MEDICAID ==
[~2023-12-05] VITALS: Ht 172.7 cm; Wt 87.0 kg
[~2023-12-05 21:38] MED LIST changes: +ASPI-1497 MT; +NITR0.4T SL
[2023-12-05 21:40] VITALS: PULSE 100; RESP 16; O2SAT 98
[2023-12-05 21:51] VITALS: BP 115/68; TEMP 98.4; O2SAT 99
== END 2023-12-06 00:44 | disposition left against medical advice (07) ==
LOC: ER 21:38
DX: R07.89 Other chest pain (principal); Z53.21 Procedure and treatment not carried out due to patient leaving prior to being seen by health care provider
CPT/HCPCS: 93005; 99283

== ENCOUNTER 2024-01-24 02:56 | Emergency (ER) | payer MEDICARE, MEDICAID ==
[~2024-01-24] VITALS: Ht 172.7 cm; Wt 86.6 kg
[2024-01-24 03:12] VITALS: O2SAT 99
[2024-01-24 04:23] LABS: BASOPHILS % 0.4 % (0.0-2.0); EOSINOPHILS % 1.2 % (0.0-5.0); HEMATOCRIT. 41.5 % (42.0-52.0); LYMPHOCYTES % 11.8 % (20.0-50.0); MEAN CORPUSCULAR HEMOGLOBIN 26.9 pg (28.0-32.0); MEAN CORPUSCULAR HGB CONC 31.2 g/dL (31.0-37.0); MEAN CORPUSCULAR VOLUME 86.1 fL (80.0-94.0); MEAN PLATELET VOLUME 9.9 fl (7.4-10.4); MONOCYTES % 11.2 % (2.0-8.0); NEUTROPHILS % 75.4 % (40.0-76.0); PLATELET 227 x1000/uL (130-400); RED BLOOD CELL COUNT 4.82 mill/uL (4.7-6.1); RED CELL DISTRIBUTION WIDTH 16.4 % (11.6-14.6); WHITE BLOOD COUNT 12.4 x1000/uL (4.5-11.0)
[2024-01-24 04:27] LABS: CHLORIDE 105 mEq/L (98-107); POTASSIUM 3.6 mEq/L (3.5-5.1); SODIUM 139 mEq/L (136-145)
[2024-01-24 04:28] LABS: CARBON DIOXIDE 30 mEq/L (21-32)
[2024-01-24 04:29] LABS: CALCIUM 9.8 mg/dL (8.7-10.4)
[2024-01-24] MEDS: MORPHINE SULFATE 4 MG/ML INJ (FOR IV/IM USE) IV ONE (04:30)
[2024-01-24] MEDS: ONDANSETRON HCL 4MG/2ML INJ IV ONE (04:30)
[2024-01-24 04:33] LABS: CREATININE 1.4 mg/dL (0.6-1.3); GLUCOSE 206 mg/dL (70-105)
[2024-01-24 04:34] LABS: UREA NITROGEN BLOOD 18 mg/dL (9-23)
[2024-01-24 04:36] LABS: TROPONIN I HIGH SENSITIVITY 11 ng/L (3.0-53)
[2024-01-24 04:39] LABS: PARTIAL THROMBOPLASTIN TIME 26.9 sec (23.4-31.0); PROTHROMBIN TIME 10.9 sec (9.6-11.0)
[2024-01-24 09:28] VITALS: BP 121/77; PULSE 63; RESP 12; TEMP 36.89184; O2SAT 99
== END 2024-01-24 09:30 | disposition home or self-care (01) ==
LOC: ER 02:56 → EDBEDREQ 04:58 → EDBEDREQTM 04:58 → CANBEDREQ 07:53 → ER 09:30
DX: R07.89 Other chest pain (principal); E11.9 Type 2 diabetes mellitus without complications; E78.00 Pure hypercholesterolemia, unspecified; Z88.8 Allergy status to other drugs, medicaments and biological substances; Z91.041 Radiographic dye allergy status; Z79.899 Other long term (current) drug therapy
CPT/HCPCS: 99285; 96374; 71045; 96375; 80048; 83880; 85025; 85610; 85730; 84484; 36415; 93005; J2405; J2270; C1893

== ENCOUNTER 2025-02-03 04:20 | Inpatient (IN) | payer MEDICARE, MEDICAID ==
[~2025-02-03] VITALS: Ht 172.7 cm; Wt 84.4 kg
[~2025-02-03 04:20] MED LIST changes: +ASPI-1160 PO; +ATOR20TA PO; +ATOR20TA65 PO; -ATOR40TA70 PO; +BRIM.2 BOTHEYE; -CYAN50009 MT; +DORZ10DR32 BOTHEYE; +FINA5TAB11 PO; +LATA2.5D7 EACHEYE; +METF-414 PO; -METF-415 MT; +METO-539 PO; -METO25TA6 PO; -N325 SL; -NITR0.4T SL; +PANT40TA51 MT; -TAMS-11 MT; +TAMS-54 MT; +TAMS-54 PO; -TOPUD PO; -TRAV2.5D EACHEYE
[2025-02-03 04:25] VITALS: O2SAT 100
[2025-02-03 06:10] LABS: BASOPHILS % 0.8 % (0.0-2.0); EOSINOPHILS % 2.2 % (0.0-5.0); HEMATOCRIT. 42.5 % (42.0-52.0); HEMOGLOBIN. 13.7 g/dL (14.0-18.0); LYMPHOCYTES % 18.3 % (20.0-50.0); MEAN PLATELET VOLUME 10.8 fl (7.4-10.4); MONOCYTES % 9.5 % (2.0-8.0); NEUTROPHILS % 69.2 % (40.0-76.0); PLATELET 174 x1000/uL (130-400); RED BLOOD CELL COUNT 4.64 mill/uL (4.7-6.1); RED CELL DISTRIBUTION WIDTH 15.0 % (11.6-14.6)
[2025-02-03 06:15] LABS: CREATININE 1.1 mg/dL (0.6-1.3); UREA NITROGEN BLOOD 11 mg/dL (9-23)
[2025-02-03 06:16] LABS: TROPONIN I HIGH SENSITIVITY 7 ng/L (3.0-53)
[2025-02-03 08:00] VITALS: BP 116/80; PULSE 90; RESP 18; TEMP 36.9
[2025-02-03] MEDS: ONDANSETRON HCL 4MG/2ML INJ IV ONE (08:15)
[2025-02-03] MEDS: MORPHINE SULFATE 4 MG/ML INJ (FOR IV/IM USE) IV ONE (08:16)
[2025-02-03 11:29] VITALS: BP 114/54; PULSE 60; RESP 18; TEMP 36.9184
[2025-02-03] MEDS ORDERED: TAMS-54 PO ×2 (11:48→12:07)
[2025-02-03 12:00] VITALS: BP 120/78; PULSE 85; RESP 16; TEMP 37.1
[2025-02-03] MEDS: METOPROLOL TARTRATE 50MG TABLET PO SCH (12:00)
[2025-02-03] MEDS ORDERED: ACETAMINOPHEN 325MG TABLET PO PRN (12:00)
[2025-02-03] MEDS ORDERED: FERR-63 PO (12:06)
[2025-02-03] MEDS ORDERED: ATOR40TA70 PO (12:06)
[2025-02-03] MEDS ORDERED: METO-396 PO (12:06)
[2025-02-03] MEDS ORDERED: METF-416 PO (12:07)
[2025-02-03] MEDS ORDERED: DEXTROSE 50% WATER 50ML SYRINGE IV PRN (12:45)
[2025-02-03] MEDS: APIXABAN 5 MG TABLET PO SCH (13:42)
[2025-02-03] MEDS: PANTOPRAZOLE 40MG DR TABLET PO SCH (13:43)
[2025-02-03] MEDS: MULTIVITAMINS,THER W-MINERALS TABLET PO SCH (13:43)
[2025-02-03] MEDS: FINASTERIDE 5MG TABLET PO SCH (13:43)
[2025-02-03] MEDS: INSULIN LISPRO 100 UNITS/ML SUBCUT SCH (13:44)
[2025-02-03] MEDS: BLOOD SUGAR DIAGNOSTIC STRIP TEST SCH (13:49)
[2025-02-03] MEDS: TAMSULOSIN HCL 0.4MG SR CAPSULE PO SCH (13:56)
[2025-02-03] MEDS: BRIMONIDINE 0.2% OPHTH DROPS 5ML BOTHEYE SCH (14:00)
[2025-02-03] MEDS: DORZOLAM/TIMOLOL 2%/0.5% OPHTH DROPS 10ML BOTHEYE SCH (14:00)
[2025-02-03] MEDS ORDERED: NALOXONE HCL 0.4MG/ML VIAL IV PRN (14:45)
[2025-02-03] MEDS: MORPHINE SULFATE 2 MG/ML INJ (NOT FOR IM USE) IV PRN (14:59)
[2025-02-03 16:00] VITALS: BP 110/53; PULSE 60; RESP 16; TEMP 36.3; O2SAT 96
[2025-02-03 20:00] VITALS: BP 131/55; PULSE 59; RESP 17; TEMP 36.2; O2SAT 99
[2025-02-03] MEDS: ATORVASTATIN CALCIUM 20MG TABLET PO SCH (20:19)
[2025-02-03] MEDS: LATANOPROST 0.005% OPHTH DROPS 2.5ML EACHEYE SCH (20:21)
[2025-02-03 23:32] LABS: *AMPHETAMINES SCREEN URINE NEGATIVE (NEGATIVE)
[2025-02-03 23:33] LABS: *BARBITURATES SCREEN URINE NEGATIVE (NEGATIVE); *BENZODIAZEPINES SCREEN URINE NEGATIVE (NEGATIVE); *COCAINE SCREEN URINE NEGATIVE (NEGATIVE); CANNABINOID URINE SCREEN NEGATIVE (NEGATIVE); ECSTASY MDMA SCREEN URINE NEGATIVE (NEGATIVE); METHADONE URINE SCREEN NEGATIVE (NEGATIVE); OPIATES URINE SCREEN PRESUMPTIVE POSITIVE (NEGATIVE); PHENCYCLIDINE URINE SCREEN NEGATIVE (NEGATIVE)
[2025-02-04] VITALS: BP 108/58; PULSE 59; RESP 18; TEMP 37.4; O2SAT 97
[2025-02-04] MEDS: ONDANSETRON HCL 4MG/2ML INJ IV PRN (01:19)
[2025-02-04 04:00] VITALS: BP 119/56; PULSE 61; RESP 19; TEMP 36.8; O2SAT 99
[2025-02-04 08:00] VITALS: BP 122/65; PULSE 74; RESP 18; TEMP 36.2; O2SAT 97
[2025-02-04 12:00] VITALS: BP 117/60; PULSE 71; RESP 18; TEMP 36.3; O2SAT 96
[2025-02-04 16:00] VITALS: BP 119/64; PULSE 72; RESP 18; TEMP 36.1; O2SAT 97
[2025-02-04 20:00] VITALS: BP 115/64; PULSE 60; RESP 21; TEMP 36.3; O2SAT 99
[2025-02-05] VITALS: BP 106/64; PULSE 60; RESP 21; TEMP 36.2; O2SAT 98
[2025-02-05 04:00] VITALS: BP 121/69; PULSE 60; RESP 18; TEMP 36.4; O2SAT 97
[2025-02-05 08:00] VITALS: BP 138/75; PULSE 60; RESP 18; TEMP 36.2; O2SAT 96
[2025-02-05 12:00] VITALS: BP 112/68; PULSE 60; RESP 18; TEMP 36.1; O2SAT 99
[2025-02-05 16:00] VITALS: BP 129/62; PULSE 62; RESP 18; TEMP 36.2; O2SAT 96
[2025-02-05 20:00] VITALS: BP 129/57; PULSE 62; RESP 18; TEMP 36.4; O2SAT 97
[2025-02-06 08:00] VITALS: BP 117/61; PULSE 60; RESP 19; TEMP 37.1; O2SAT 99
[2025-02-06 12:00] VITALS: BP 109/64; PULSE 60; RESP 20; TEMP 36.9; O2SAT 98
[2025-02-06 16:00] VITALS: BP 109/65; PULSE 64; RESP 17; TEMP 37.1; O2SAT 100
[2025-02-06 20:00] VITALS: BP 111/64; PULSE 60; RESP 19; TEMP 36.4; O2SAT 98
[2025-02-07] VITALS: BP 125/70; PULSE 60; RESP 18; TEMP 36.3; O2SAT 100
[2025-02-07 04:00] VITALS: BP 128/67; PULSE 61; RESP 18; TEMP 36.4; O2SAT 98
[2025-02-07 08:00] VITALS: BP 102/64; PULSE 70; RESP 16; O2SAT 100
[2025-02-07 16:00] VITALS: BP 104/50; RESP 63
[2025-02-07 20:00] VITALS: BP 135/68; PULSE 68; RESP 18; TEMP 36.6; O2SAT 100
[2025-02-08] VITALS: BP 128/72; PULSE 76; RESP 18; TEMP 36.4; O2SAT 98
[2025-02-08 04:00] VITALS: BP 123/63; PULSE 81; RESP 17; TEMP 36.6; O2SAT 99
[2025-02-08 08:00] VITALS: BP 120/55; PULSE 60; RESP 18; TEMP 36.5; O2SAT 97
[2025-02-08 12:00] VITALS: BP 116/50; PULSE 62; RESP 16; TEMP 35.5; O2SAT 96
[2025-02-08 16:00] VITALS: BP 120/79; PULSE 70; RESP 15; TEMP 36.6; O2SAT 100
[2025-02-08] MEDS ORDERED: TRAMADOL 50MG TABLET PO PRN (17:15)
[2025-02-08 20:00] VITALS: BP 128/68; PULSE 68; RESP 18; TEMP 36.4; O2SAT 98
[2025-02-08] MEDS: ACETAMINOPHEN 325MG TABLET PO PRN (20:43)
[2025-02-08] MEDS ORDERED: NALOXONE HCL 0.4MG/ML VIAL IV PRN (22:00)
[2025-02-09] VITALS: BP 114/72; PULSE 72; RESP 19; TEMP 36.2; O2SAT 96
[2025-02-09 04:00] VITALS: BP 115/78; PULSE 74; RESP 18; TEMP 36.1; O2SAT 97
[2025-02-09 04:44] VITALS: BP 132/59; PULSE 82; RESP 19; TEMP 97
== END 2025-02-09 05:55 | disposition home or self-care (01) | DRG 313 ==
LOC: ER 04:20 → 6WST 07:45 → EDBEDREQ 07:46 → EDBEDREQTM 07:46 → ENRESERV 08:00 → 6EST 02-06 04:25
PROVIDERS: ADMIT Student in an Organized Health Care Education/Training Program; ATTEND Student in an Organized Health Care Education/Training Program
DX: R07.89 Other chest pain (principal); I25.10 Atherosclerotic heart disease of native coronary artery without angina pectoris; I48.92 Unspecified atrial flutter; Z79.01 Long term (current) use of anticoagulants; F11.20 Opioid dependence, uncomplicated; E11.9 Type 2 diabetes mellitus without complications; I49.5 Sick sinus syndrome; E78.00 Pure hypercholesterolemia, unspecified; N40.0 Benign prostatic hyperplasia without lower urinary tract symptoms; H40.9 Unspecified glaucoma; Z86.711 Personal history of pulmonary embolism; Z95.0 Presence of cardiac pacemaker; Z91.041 Radiographic dye allergy status; Z82.49 Family history of ischemic heart disease and other diseases of the circulatory system; Z83.3 Family history of diabetes mellitus; Z79.82 Long term (current) use of aspirin
CPT/HCPCS: 36415; 71045; 80048; 80305; 82962; 84484; 85025; 93005; 99285; A4606; J1815; J2270; J2405